=== PATIENT | male | born 1950 | race Caucasian/White ===

== ENCOUNTER 2016-09-16 14:01 | Inpatient (IN) ==
--- NOTE | 2016-09-16 14:06 | Emergency Department Note ---
Disposition Clinical Impression: Atrial fibrillation with rapid ventricular response Acute and chronic respiratory failure Qualifiers: Respiratory failure complication: hypoxia and hypercapnia Qualified Code(s): J96.21 - Acute and chronic respiratory failure with hypoxia; J96.22 - Acute and chronic respiratory failure with hypercapnia Pulmonary edema Qualifiers: Chronicity: acute Qualified Code(s): J81.0 - Acute pulmonary edema Dyspnea Qualifiers: Dyspnea type: shortness of breath Qualified Code(s): R06.02 - Shortness of breath Disposition: Admitted As Inpatient Condition: Good SOB HPI - General Chief Complaint: ED Shortness of Breath/Dyspnea Stated Complaint: brunilda Time Seen by Provider: 09/16/16 14:03 Source: patient, EMS Mode of arrival: EMS Limitations: no limitations Nursing Notes Reviewed: Yes Vital Signs Reviewed: Yes - History of Present Illness Patient reports progressive dyspnea over the course of about a week. He denies that he is having a productive cough or any specific chest pains. He states he just has general malaise and dyspnea. Reports he has had similar before with history of some COPD. He denies history of congestive heart failure. He denies any increase of lower extremity swelling or any pains. He denies nausea , vomiting, diaphoresis or abdominal pain. He states he is on home oxygen and his readings have been "low". He is on 4 L nasal cannula and he arrives with saturations in the mid 80s. EMS reports they did administer a DuoNeb, aspirin and 125mg of Solu-Medrol in route. Pt Subjective Complaint: shortness of breath Onset (ago): week(s) Severity: moderate Consistency/Duration: gradually worsening Improves with: rest Worsens with: exertion, movement Known history of: COPD Associated symptoms: Reports: cough, wheezing. Denies: chest pain, pain with inspiration, fever, sputum production, orthopnea, lower extremity pain, polyuria , polydipsia, parasthesias, palpitations, hemoptysis, diaphoresis, nausea/ vomiting, syncope, abdominal pain, rash Treatment prior to arrival: oxygen, bronchodilator Cough Description: Voluntary Cough Frequency: Intermittent Sputum production: No - Related Data Home oxygen amount: 4 liters Home Medications Medication Instructions Recorded Confirmed Atorvastatin Calcium [Lipitor] 40 mg PO DAILY 07/13/16 09/16/16 Citalopram [CeleXA] 40 mg PO DAILY 07/13/16 07/13/16 Levothyroxine [Synthroid] 125 mcg PO 0630 07/13/16 09/16/16 Metoprolol [Lopressor] 12.5 mg PO DAILY 07/13/16 07/13/16 Amiodarone [Cordarone] 200 mg PO DAILY 09/16/16 09/16/16 Furosemide [Lasix] 40 mg PO DAILY 09/16/16 09/16/16 Ropinirole [Requip] 0.25 mg PO HS 09/16/16 09/16/16 Allergies Allergy/AdvReac Type Severity Reaction Status Date / Time No Known Allergies Allergy Verified 07/13/16 20:38 All systems ED: reviewed and negative except as stated. Past Medical History - Past Medical History Attestation: Yes The following information was validated with the patient. Source: patient, old records reviewed, obtained from family, nursing notes reviewed Medical history: Reports: atrial fibrillation, COPD (Chronic respiratory failure , oxygen dependency), coronary artery disease, CVA, DVT, hyperlipidemia, hypertension, renal disease, thyroid disease, other (Paroxysmal atrial fibrillation, obstructive sleep apnea) Surgical history: Reports: coronary bypass (CABG) Psychiatric history: Reports: anxiety, depression - Social History Smoking Status: Current every day smoker Smokeless Tobacco Status: No Drug use: Reports: none Physical Exam - General Limitations: no limitations General appearance: alert, in distress - Head Head exam: atraumatic, normocephalic, normal inspection - Eye Eye exam: Present: normal appearance, PERRL, EOMI - ENT ENT exam: normal exam, normal oropharynx, mucous membranes moist - Neck Neck exam: Present: normal inspection, full ROM, trachea midline - Chest Chest inspection: Present: normal inspection, symmetric chest wall rise - Respiratory Respiratory exam: Present: respiratory distress, prolonged expiratory phase. Absent: wheezes, accessory muscle use - Cardiovascular Cardiovascular exam: Present: tachycardia, irregular rhythm. Absent: JVD - Abdominal Exam Abdominal exam: Present: soft, Non-Tender, normal bowel sounds. Absent: tenderness, distention, guarding, rebound, rigidity - Extremities Exam Extremities exam: Present: normal inspection, full ROM, normal capillary refill. Absent: tenderness, pedal edema, calf tenderness - Expanded Lower Extremity Exam Neurovascular/Tendon exam: Present: normal capillary refill. Absent: motor deficit, sensory deficit, tendon deficit Gait: not tested/not observed - Neurological Exam Neurological exam: Present: alert, oriented X3 - Psychiatric Psychiatric exam: Present: normal affect, normal mood - Skin Skin exam: Present: warm, dry, intact, cyanosis (Lips only). Absent: diaphoresis, pallor Course Course Narrative: 1500: The patient has refused BiPAP indicating to the respiratory therapist that he has been on this before and he has not been able to tolerate it. He does have attention on his ABG and relative hypoxia on his 4 L. He indicates that he does not wish to have other respiratory treatment. His heart rate is remaining elevated at about 120 and he is now saturating at 90% with a blood pressure of 126/75. His x-ray indicates some fluid overload and his lactic acid is elevated at 3.1. I do not believe a fluid bolus would be prudent at this time. We are awaiting return of additional lab work prior to his disposition. 1555: All lab, EKG and imaging are discussed with the patient and family. With x-ray and lab indicating fluid overload he has received a dose of IV Lasix. The family that lives advises that he ran out of his own Lasix 8 days ago and have not received another prescription yet. It is over this period of time that he has been having increased shortness of breath. He is resting with a heart rate still about 1 to an saturations in the high 80s on his own 4 L nasal cannula. He still does not wish to have any additional oxygen or more aggressive respiratory treatment. I have discussed care with Dr. Powers who would like to see how well he responds to the dose of IV furosemide prior to considering observation to this facility. He additionally desired he receive a dose of 0.5 mg of Lanoxin IV and 50 mg of metoprolol by mouth. He is showing clinical improvement by 5 PM, he is agreeable with having him observed to the floor at this facility. Given the patient's refusal of more aggressive respiratory treatment or intervention, it is unlikely that more aggressive treatment would be done at a tertiary facility at this time. We will continue observing the patient in the emergency department over the next hour. 1705: Patient has been resting comfortably at the side of his bed, has a respiratory rate of all is 20 and an oxygen saturation of about 85% on 4 L nasal cannula. His heart rate is running 100-110 and his blood pressure is 105/ 60. He denies that he is having any current shortness of breath and that he feels much better. His family notes he was having difficulty breathing when he got here but it seems that he is breathing normally now. They state that his usual oxygens are in the mid 80s. Care has been discussed with Dr. Powers who is agreeable having this patient at this facility'S the nursing staff may have some problems with his chronic oxygen level. We have placed a call to the nurse receiving supervisor on the floor with a request that she see this patient in the emergency department prior to their giving him an inpatient bed at this facility. 1855: Care has been discussed several times with Dr. Powers, floor nurse as well as the medicine floor covering installer, Anu with the decision to observe the patient at this facility. He continues to rest comfortably and drink coffee. The patient and family state that he is breathing at his baseline. He currently has a heart rate 90, and Oxygen Saturation in the Mid 90s and a Respiratory Rate of 14-16. Vital Signs Temperature 97.4 F L 09/16/16 14:02 Pulse Rate 124 09/16/16 14:02 Respiratory Rate 20 09/16/16 14:02 Blood Pressure 89/66 09/16/16 14:02 O2 Sat by Pulse Oximetry 80 09/16/16 14:02 Temperature 97.4 F L 09/16/16 14:02 Pulse Rate 90 09/16/16 18:46 Respiratory Rate 18 09/16/16 19:21 Blood Pressure 125/68 09/16/16 19:21 O2 Sat by Pulse Oximetry 92 09/16/16 18:46 Oxygen Delivery Oxygen Delivery Nasal Cannula Shortness of Breath/Dyspnea - Differential Diagnosis Likely: acute exacerbation of chronic obstructive airways disease, congestive heart failure, pneumonia, asthma with exacerbation - Medical Records Medical records reviewed: Yes I reviewed the patient's medical records. Patient's INR was 7.1 on 09/14/2016. There is little likelihood that his current pathology will be secondary to any intravascular coagulation or pulmonary embolism. - Lab Data Lab results reviewed: Yes I reviewed the patient's lab results. Result diagrams: 09/16/16 14:50 09/16/16 14:40 Lab Results 09/16/16 09/16/16 09/16/16 Range/Units 14:18 14:40 14:40 WBC (4.3-11.1) K/mcL RBC (4.19-5.50) M/mcL Hgb (12.9-16.9) g/dL Hct (37.5-50.1) % MCV (83.0-100.0) fL MCH (28.0-33.3) pg MCHC (31.6-35.5) g/dL RDW (11.5-14.5) % Plt Count (140-400) K/mcL MPV (9.4-12.4) fL Immature Gran % (0-4) % Seg Neutrophils % % Lymphocytes % % Monocytes % % Eosinophils % % Basophils % % Neutrophils # (1.6-8.9) K/mcL Lymphocytes # (0.6-4.6) K/mcL Monocytes # (0.0-1.3) K/mcL Eosinophils # (0.0-0.6) K/mcL Basophils # (0.0-0.2) K/mcL Nucleated RBCs/100 WBC (0) /100 WBC PT (9.4-12.1) Seconds INR APTT (26.0-36.0) Seconds ABG pH 7.37 (7.32-7.45) pH Units ABG pCO2 65 H (35-45) mmHg ABG pO2 51 L (85-104) mmHg ABG HCO3 36.9 H (21-27) mEQ/L ABG Total CO2 38.9 H (20-26) mEq/L ABG O2 Saturation 83 L (95-98) % ABG Base Excess 11.6 H (-2.0 to 3.0) mEq/L VBG Lactic Acid (0.5-2.2) mmol/L Liter Flow 4 L/MIN Blood Gas Modality NC Inspired O2 36 % Sodium 142 (136-145) mEq/L Potassium 4.1 (3.5-4.5) mEq/L Chloride 98 (98-109) mEq/L Carbon Dioxide 29 (19-29) mEq/L BUN 22 (8-26) mg/dL Creatinine 1.14 (0.72-1.25) mg/dL Est GFR ( Amer) > 60 (> 60) Est GFR (Non-Af Amer) > 60 (> 60) BUN/Creatinine Ratio 19 (6-26) Glucose 112 H (70-99) mg/dL Calculated Osmolality 298 (280-300) Calcium 8.4 L (8.6-10.8) mg/dL Troponin I 0.03 (0-0.03) ng/mL B-Natriuretic Peptide (0-100) pg/mL 09/16/16 09/16/16 09/16/16 Range/Units 14:40 14:50 14:50 WBC 11.9 H (4.3-11.1) K/mcL RBC 3.84 L (4.19-5.50) M/mcL Hgb 11.3 L (12.9-16.9) g/dL Hct 38.3 (37.5-50.1) % MCV 99.7 (83.0-100.0) fL MCH 29.4 (28.0-33.3) pg MCHC 29.5 L (31.6-35.5) g/dL RDW 16.0 H (11.5-14.5) % Plt Count 290 (140-400) K/mcL MPV 10.7 (9.4-12.4) fL Immature Gran % 0.5 (0-4) % Seg Neutrophils % 79.9 % Lymphocytes % 7.0 % Monocytes % 12.0 % Eosinophils % 0.2 % Basophils % 0.4 % Neutrophils # 9.5 H (1.6-8.9) K/mcL Lymphocytes # 0.8 (0.6-4.6) K/mcL Monocytes # 1.4 H (0.0-1.3) K/mcL Eosinophils # 0.0 (0.0-0.6) K/mcL Basophils # 0.1 (0.0-0.2) K/mcL Nucleated RBCs/100 WBC 0.2 H (0) /100 WBC PT 45.1 H* (9.4-12.1) Seconds INR 4.0 APTT 34.7 (26.0-36.0) Seconds ABG pH (7.32-7.45) pH Units ABG pCO2 (35-45) mmHg ABG pO2 (85-104) mmHg ABG HCO3 (21-27) mEQ/L ABG Total CO2 (20-26) mEq/L ABG O2 Saturation (95-98) % ABG Base Excess (-2.0 to 3.0) mEq/L VBG Lactic Acid 3.1 H (0.5-2.2) mmol/L Liter Flow L/MIN Blood Gas Modality Inspired O2 % Sodium (136-145) mEq/L Potassium (3.5-4.5) mEq/L Chloride (98-109) mEq/L Carbon Dioxide (19-29) mEq/L BUN (8-26) mg/dL Creatinine (0.72-1.25) mg/dL Est GFR ( Amer) (> 60) Est GFR (Non-Af Amer) (> 60) BUN/Creatinine Ratio (6-26) Glucose (70-99) mg/dL Calculated Osmolality (280-300) Calcium (8.6-10.8) mg/dL Troponin I (0-0.03) ng/mL B-Natriuretic Peptide (0-100) pg/mL 09/16/16 Range/Units 14:50 WBC (4.3-11.1) K/mcL RBC (4.19-5.50) M/mcL Hgb (12.9-16.9) g/dL Hct (37.5-50.1) % MCV (83.0-100.0) fL MCH (28.0-33.3) pg MCHC (31.6-35.5) g/dL RDW (11.5-14.5) % Plt Count (140-400) K/mcL MPV (9.4-12.4) fL Immature Gran % (0-4) % Seg Neutrophils % % Lymphocytes % % Monocytes % % Eosinophils % % Basophils % % Neutrophils # (1.6-8.9) K/mcL Lymphocytes # (0.6-4.6) K/mcL Monocytes # (0.0-1.3) K/mcL Eosinophils # (0.0-0.6) K/mcL Basophils # (0.0-0.2) K/mcL Nucleated RBCs/100 WBC (0) /100 WBC PT (9.4-12.1) Seconds INR APTT (26.0-36.0) Seconds ABG pH (7.32-7.45) pH Units ABG pCO2 (35-45) mmHg ABG pO2 (85-104) mmHg ABG HCO3 (21-27) mEQ/L ABG Total CO2 (20-26) mEq/L ABG O2 Saturation (95-98) % ABG Base Excess (-2.0 to 3.0) mEq/L VBG Lactic Acid (0.5-2.2) mmol/L Liter Flow L/MIN Blood Gas Modality Inspired O2 % Sodium (136-145) mEq/L Potassium (3.5-4.5) mEq/L Chloride (98-109) mEq/L Carbon Dioxide (19-29) mEq/L BUN (8-26) mg/dL Creatinine (0.72-1.25) mg/dL Est GFR ( Amer) (> 60) Est GFR (Non-Af Amer) (> 60) BUN/Creatinine Ratio (6-26) Glucose (70-99) mg/dL Calculated Osmolality (280-300) Calcium (8.6-10.8) mg/dL Troponin I (0-0.03) ng/mL B-Natriuretic Peptide 2406 H (0-100) pg/mL - Radiology Data Radiology results reviewed: Yes I reviewed the patient's radiology results. Single view chest x-rays performed. This shows a markedly rightward rotated film with some diffuse increased interstitial markings present. I did not see definite focal infiltrate, effusion or pneumothorax. The cardiac silhouette is difficult to assess. This is on my interpretation. Impressions Chest X-Ray 09/16/16 14:03 IMPRESSION: Cardiomegaly with pulmonary vascular congestion, small bilateral pleural effusions, and bibasilar atelectasis. D/ / Arlene Saucedo MD / Arlene Saucedo MD Interpreting Provider: Arlene Saucedo MD - EKG Data EKG attestation: Yes I reviewed and interpreted this EKG. EKG shows normal: Reports: axis, QRS complexes Rate: Reports: tachycardia (123) Rhythm: Reports: A.Fib Interpretation: Reports: nonspecific ST-T wave changes, other (Atrial fibrillation with rapid ventricular response. Nonspecific T-wave flattening.) Critical Care Time Critical Care Time: Yes Total Critical Care Time: 45 Attestation: As this patient did present with signs and symptoms of potential life- threatening illness requiring my urgent intervention, total critical care time in this patient's care has been 45 minutes, not withstanding separately reportable procedures.
[2016-09-16 14:27] LABS: ABG Base Excess 11.6 mEq/L (-2.0 to 3.0); ABG HCO3 36.9 mEQ/L (21-27); ABG Oxygen Saturation 83 % (95-98); ABG PCO2 65 mmHg (35-45); ABG PH 7.37 pH Units (7.32-7.45); ABG PO2 51 mmHg (85-104); ABG TCO2 38.9 mEq/L (20-26); Blood Gas FiO2 36 %; Blood Gas Liter Flow 4 L/MIN
[2016-09-16 15:01] LABS: Basophils # 0.1 K/mcL (0.0-0.2); Basophils % 0.4 %; Eosinophils % 0.2 %; Hematocrit 38.3 % (37.5-50.1); Hemoglobin 11.3 g/dL (12.9-16.9); Immature Granulocytes % 0.5 % (0-4); Lymphocytes # 0.8 K/mcL (0.6-4.6); Mean Corpuscular HGB Conc 29.5 g/dL (31.6-35.5); Mean Corpuscular Hemoglobin 29.4 pg (28.0-33.3); Mean Corpuscular Volume 99.7 fL (83.0-100.0); Mean Platelet Volume 10.7 fL (9.4-12.4); Monocytes # 1.4 K/mcL (0.0-1.3); Neutrophils # 9.5 K/mcL (1.6-8.9); Nucleated Red Blood Cells 0.2 /100 WBC (0); Platelet Count 290 K/mcL (140-400); Red Blood Count 3.84 M/mcL (4.19-5.50); Segmented Neutrophils % 79.9 %
[2016-09-16 15:08] LABS: BUN/Creatinine Ratio 19 (6-26); Blood Urea Nitrogen 22 mg/dL (8-26); Calcium 8.4 mg/dL (8.6-10.8); Carbon Dioxide 29 mEq/L (19-29); Chloride 98 mEq/L (98-109); Glucose 112 mg/dL (70-99); Osmolality,Calculated 298 (280-300); Potassium 4.1 mEq/L (3.5-4.5); Sodium 142 mEq/L (136-145); eGFR For African Americans > 60 (> 60); eGFR For Non-African Americans > 60 (> 60)
[2016-09-16 15:22] LABS: Activated Partial Thrombo Time 34.7 Seconds (26.0-36.0)
[2016-09-16 15:38] LABS: Prothrombin Time 45.1 Seconds (9.4-12.1)
[2016-09-16] MEDS ORDERED: Furosemide 40 MG/4 ML VIAL IVP ONE (15:42)
[2016-09-16] MEDS ORDERED: *HR* Digoxin 0.5 MG/2 ML AMPUL IVP ONE (16:02)
[2016-09-16] MEDS ORDERED: MOM Conc 10 ML UD.LIQ PO PRN (19:21)
[2016-09-16] MEDS ORDERED: Ipratropium/Albuterol Neb 3 ML IH PRN (19:21)
[2016-09-16] MEDS ORDERED: Ondansetron 4 MG/2 ML VIAL IVP PRN (19:21)
[2016-09-16] MEDS ORDERED: Naloxone 0.4 MG/ML INJ IVP PRN (19:21)
[2016-09-17] MEDS ORDERED: *HR* Amiodarone 200 MG TABLET PO SCH (09:00)
--- NOTE | 2016-09-17 09:09 | Electrocardiograph Report ---
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
[2016-09-17] MEDS: *HR* Digoxin 0.25 MG TABLET PO SCH (09:34)
[2016-09-17] MEDS: Furosemide 40 MG TABLET PO SCH (09:34)
--- NOTE | 2016-09-17 12:51 | Internal Med History&Physical ---
Date of Encounter: 09/17/16 Time of Encounter: 08:45 Assessment and Plan (1) Dyspnea Current visit: Yes Status: Acute Suspect multifactorial etiology including COPD and heart failure with possible bronchitis/pneumonia. He will be treated for each of these various contributing factors. Qualifiers: Dyspnea type: shortness of breath Qualified Code(s): R06.02 - Shortness of breath (2) COPD (chronic obstructive pulmonary disease) Current visit: Yes Status: Chronic He has been started on duo nebs and albuterol nebs as needed. Further workup will be done as indicated. Qualifiers: COPD type: unspecified COPD Qualified Code(s): J44.9 - Chronic obstructive pulmonary disease, unspecified (3) Heart failure Current visit: Yes Status: Acute He appears to have acute exacerbation of heart failure with significant rise in the bn peptides since July 2016 level of 380. Will add Lanoxin and isosorbide. Continue metoprolol Qualifiers: Heart failure type: unspecified heart failure type Heart failure chronicity : chronic Qualified Code(s): I50.9 - Heart failure, unspecified (4) Anemia Current visit: Yes Status: Acute We will order anemia testing in a.m. Qualifiers: Anemia type: unspecified type Qualified Code(s): D64.9 - Anemia, unspecified (5) Hypothyroidism Current visit: Yes Status: Acute We will check TSH in a.m. Qualifiers: Hypothyroidism type: unspecified Qualified Code(s): E03.9 - Hypothyroidism , unspecified (6) Atrial fibrillation with rapid ventricular response Current visit: Yes Status: Acute Atrial fibrillation suspected to be chronic due to presence of amiodarone on med list. Will add Lanoxin for rate control and increase metoprolol. We will start Xarelto for CVA prophylaxis. (7) Neutrophilic leukocytosis Current visit: Yes Status: Acute Continue empiric antibiotic treatment and will add lactobacillus. Internal Medicine - H&P: HPI Chief complaint: Dyspnea Admitted From: Home Plans for Post Hospital Care: Home History of present illness: Mr. Abdullahi is a 66 year old male who came to emergency room complaining of increased dyspnea over the preceding 2 weeks. He had cough with minimal productivity. He denied chest pain. He was evaluated in emergency room and found to have AF with RVR and significantly elevated bn peptide. He had fluctuating oxygen saturations. He was stabilized emergency room and admitted to [facility] floor for ongoing care needs. His respiratory history is significant for having smoked since age 10 up to 2-1/ 2 packs per day. He states he wears oxygen at home 09/01 at 4 L/m. He has a diagnosis of COPD. Cardiovascular history is significant for hypertension and known ASHD with possible remote [place]. He states he had 4 vessel CABG approximately 2004. He had DVT with IVC filter placed several years ago. He has diagnoses of heart failure but does not know details. Past Med Surg Social Fam HX - Past Medical History Medical history: atrial fibrillation, COPD, coronary artery disease, CVA, DVT, hyperlipidemia, hypertension, renal disease, thyroid disease, other Psychiatric history: anxiety, depression - Past Surgical History Surgical History: coronary bypass (CABG) - Social History Smoking Status: Current every day smoker Smokeless Tobacco Status: No Alcohol use: none Drug use: none - Family History Mother Living Status: Cause of : [place] Hx Family Cardiac Disorders: Yes (OK) Sister Living Status: Cause of : [place] Hx Family Cardiac Disorders: Yes ([place]) Internal Medicine - H&P: Meds Atorvastatin Calcium [Lipitor] 40 mg PO DAILY 07/13/16 [History] Citalopram [CeleXA] 40 mg PO DAILY 07/13/16 [History] Levothyroxine [Synthroid] 125 mcg PO 0630 07/13/16 [History] Metoprolol [Lopressor] 12.5 mg PO DAILY 07/13/16 [History] Amiodarone [Cordarone] 200 mg PO DAILY 09/16/16 [History] Furosemide [Lasix] 40 mg PO DAILY 09/16/16 [History] Ropinirole [Requip] 0.25 mg PO HS 09/16/16 [History] Allergies No Known Allergies Allergy (Verified 07/13/16 20:38) All Systems PM: A 10-system review of systems was performed and is negative for pertinent findings except as documented above in the HPI. Review of systems: General: He states his weight has been stable the past few months Cardiovascular: As per history of present illness Respiratory: As per history of present illness GI: He denies disorders of his liver gallbladder or exocrine pancreas : He denies hematuria dysuria or kidney stones Neurologic: He claims he has had CVA in the past with residual left-sided weakness. He uses a cane or walker to ambulate at home. He denies seizures. Endocrine: He has hyperlipidemia and hypothyroidism but denies diabetes. Hematology/oncology: He was found to have anemia in the emergency room. He denies internal malignancies other blood disorders. Psychiatric: He has anxiety but denies depression or other mental health issues Musk skeletal: He has DJD but no known gout or other bone joint or muscle disorders. - Constitutional Vitals: Temp Pulse Resp BP Pulse Ox 98.7 F 92 20 106/59 93 09/17/16 01:50 09/17/16 10:22 09/17/16 10:22 09/17/16 10:22 09/17/16 10:22 Exam: Gen.: He is a well-developed obese male sitting in a chair who appears in no severe distress at present time HEENT: Head is atraumatic and normal cephalic. Eyes: EOMI. There is no scleral icterus. Mouth: He is wearing oxygen by mask. His mucosa is moist Neck: There is no thyromegaly or adenopathy noted Heart: Irregularly irregular without murmurs or gallops Lungs: Has diminished breath sounds diffusely. No wheezes or crackles are heard. Abdomen: Soft and nontender. He has a large abdomen. Exam is limited because he is in the seated position. Extremities: There is no cyanosis edema or clubbing noted. Dorsalis pedis and posttibial pulses are trace palpable bilaterally. Neurologic: Mental status: He is talkative and a fair historian. He has difficulty remembering some details of his history. Cranial nerves: Smile is symmetric. Forehead wrinkles bilaterally. Tongue protrudes midline. EOMI. He is hard of hearing. Motor: There is no pronator drift. Cerebellar: Finger to nose is intact bilaterally. Skin: Warm and dry Internal Med - H&P Results - Labs CBC & Chem 7: 09/16/16 14:50 09/16/16 14:40
[2016-09-17] MEDS: Albuterol 2.5 MG/3 ML NEBULIZER IH PRN (17:23)
[2016-09-17] MEDS: Levofloxacin 750 MG/150 ML 750 MG/150 ML BAG IVPB SCH (17:37)
[2016-09-17] MEDS: Isosorbide MONOnitrate (24 HR) 30 MG TAB.ER.24H PO SCH (17:37)
[2016-09-17] MEDS: *HR* Rivaroxaban 10 MG TABLET PO SCH (17:38)
[2016-09-17] MEDS: Lactobacillus 1 EACH CAP.SPRINK PO SCH (21:25)
[2016-09-18 06:09] LABS: Basophils % 0.2 %; Eosinophils # 0.1 K/mcL (0.0-0.6); Eosinophils % 0.9 %; Hematocrit 37.1 % (37.5-50.1); Hemoglobin 10.8 g/dL (12.9-16.9); Immature Granulocytes % 0.5 % (0-4); Lymphocytes # 1.3 K/mcL (0.6-4.6); Lymphocytes % 9.8 %; Mean Corpuscular HGB Conc 29.1 g/dL (31.6-35.5); Mean Corpuscular Hemoglobin 29.3 pg (28.0-33.3); Mean Corpuscular Volume 100.5 fL (83.0-100.0); Monocytes # 1.4 K/mcL (0.0-1.3); Monocytes % 10.7 %; Platelet Count 214 K/mcL (140-400); Red Blood Count 3.69 M/mcL (4.19-5.50); Red Cell Distribution Width 16.1 % (11.5-14.5); Segmented Neutrophils % 77.9 %
[2016-09-18 06:10] LABS: Neutrophils # 10.1 K/mcL (1.6-8.9)
[2016-09-18 06:41] LABS: Alanine Aminotransferase 170 Units/L (0-55); Albumin 2.8 g/dL (3.5-5.0); Albumin/Globulin Ratio 1.2 (1.1-2.2); Alkaline Phosphatase 64 Units/L (38-126); Aspartate Amino Transferase 55 Units/L (5-34); BUN/Creatinine Ratio 26 (6-26); Bilirubin,Total 0.6 mg/dL (0.2-1.2); Blood Urea Nitrogen 25 mg/dL (8-26); Calcium 8.4 mg/dL (8.6-10.8); Carbon Dioxide 34 mEq/L (19-29); Chloride 100 mEq/L (98-109); Globulin 2.3 g/dL (2.4-3.5); Glucose 98 mg/dL (70-99); Osmolality,Calculated 302 (280-300); Potassium 4.1 mEq/L (3.5-4.5); Sodium 144 mEq/L (136-145); Total Protein 5.1 g/dL (6.0-8.3); eGFR For African Americans > 60 (> 60); eGFR For Non-African Americans > 60 (> 60)
[2016-09-18 07:02] LABS: Thyroid Stimulating Hormone 5.348 mcIU/mL (0.350-4.840)
--- NOTE | 2016-09-18 09:16 | Internal Med Progress Note ---
Date of Encounter: 09/18/16 Time of Encounter: 09:05 - Assessment and plan (1) Dyspnea Current Visit: Yes Status: Acute Assessment and plan: September 18. Continue treatment of individual components. Will order chest CT Qualifiers: Dyspnea type: shortness of breath Qualified Code(s): R06.02 - Shortness of breath (2) COPD (chronic obstructive pulmonary disease) Current Visit: Yes Status: Chronic Assessment and plan: Continue Levaquin with when necessary albuterol nebs Qualifiers: COPD type: unspecified COPD Qualified Code(s): J44.9 - Chronic obstructive pulmonary disease, unspecified (3) Heart failure Current Visit: Yes Status: Acute Assessment and plan: September 18. Bn peptide has improved significantly. Continue present regimen and recheck labs in a.m. Qualifiers: Heart failure type: unspecified heart failure type Heart failure chronicity : chronic Qualified Code(s): I50.9 - Heart failure, unspecified (4) Anemia Current Visit: Yes Status: Acute Assessment and plan: September 18. Anemia testing results pending. Recheck labs in a.m. Qualifiers: Anemia type: unspecified type Qualified Code(s): D64.9 - Anemia, unspecified (5) Hypothyroidism Current Visit: Yes Status: Acute Assessment and plan: September 18. TSH minimally elevated at 5.348. We will increase Synthroid dose Qualifiers: Hypothyroidism type: unspecified Qualified Code(s): E03.9 - Hypothyroidism , unspecified (6) Atrial fibrillation with rapid ventricular response Current Visit: Yes Status: Acute Assessment and plan: September 18. Continue Lanoxin, metoprolol, and Xarelto. Amiodarone at present dose is ineffective and may be contributing to hypothyroidism. (7) Neutrophilic leukocytosis Current Visit: Yes Status: Acute Assessment and plan: September 18. Continue Levaquin and lactobacillus. - Subjective Interval history: September 18. He has no new complaints and states he feels better. - Constitutional Vitals: Temp Pulse Resp BP Pulse Ox 98.2 F 78 16 94/66 94 09/18/16 06:34 09/18/16 06:34 09/18/16 06:34 09/18/16 06:34 09/18/16 06:34 Exam: He is resting comfortably in bed wearing oxygen by nasal cannula. He awakens to answer occasional questions but is lethargic. His lungs show no wheezes or crackles. Heart remains atrial fibrillation with ventricular rate approximately 85/m. Internal Medicine: Result - Labs CBC & Chem 7: 09/18/16 05:13 09/18/16 05:13 Labs: Short CBC 09/18/16 Range/Units 05:13 WBC 12.9 H (4.3-11.1) K/mcL Hgb 10.8 L (12.9-16.9) g/dL Hct 37.1 L (37.5-50.1) % Plt Count 214 (140-400) K/mcL Neutrophils # 10.1 H (1.6-8.9) K/mcL BMP 09/18/16 05:13 Sodium 144 Potassium 4.1 Chloride 100 Carbon Dioxide 34 H BUN 25 Creatinine 0.97 Glucose 98 Calcium 8.4 L Liver Function 09/18/16 Range/Units 05:13 Total Bilirubin 0.6 (0.2-1.2) mg/dL AST 55 H (5-34) Units/L ALT 170 H (0-55) Units/L Alkaline Phosphatase 64 (38-126) Units/L Albumin 2.8 L (3.5-5.0) g/dL - ABG Interpretation ABG results: ABG ABG pH 7.37 pH Units (7.32-7.45) 09/16/16 14:18 ABG pCO2 65 mmHg (35-45) H 09/16/16 14:18 ABG pO2 51 mmHg (85-104) L 09/16/16 14:18 ABG O2 Saturation 83 % (95-98) L 09/16/16 14:18 PT/INR, D-dimer PT 45.1 Seconds (9.4-12.1) H* 09/16/16 14:50 - VTE Documentation of Mechanical Device: Graduated compression elastic hosiery Consult Discharge Plan - Plan Referrals: Sara Rabago MD [Primary Care Provider] - 1 week
[2016-09-18] MEDS: Levofloxacin 750 MG/150 ML 750 MG/150 ML BAG IVPB SCH (10:08)
[2016-09-18] MEDS: Isosorbide MONOnitrate (24 HR) 30 MG TAB.ER.24H PO SCH (10:13)
[2016-09-18] MEDS: *HR* Digoxin 0.25 MG TABLET PO SCH (10:13)
[2016-09-18] MEDS: Furosemide 40 MG TABLET PO SCH (10:13)
[2016-09-18] MEDS: Lactobacillus 1 EACH CAP.SPRINK PO SCH ×2 (10:13→22:00)
[2016-09-18] MEDS: Albuterol 2.5 MG/3 ML NEBULIZER IH PRN ×2 (11:04→19:46)
[2016-09-18] MEDS: *HR* Rivaroxaban 10 MG TABLET PO SCH (17:49)
[2016-09-18 18:16] LABS: Ferritin 88 ng/ml (22-275)
[2016-09-18 18:31] LABS: Folate 4.5 ng/mL (7.0-31.4)
[2016-09-19 03:08] LABS: Basophils % 0.2 %; Eosinophils # 0.2 K/mcL (0.0-0.6); Eosinophils % 1.7 %; Hematocrit 36.7 % (37.5-50.1); Hemoglobin 10.6 g/dL (12.9-16.9); Immature Granulocytes % 1.2 % (0-4); Lymphocytes # 1.5 K/mcL (0.6-4.6); Mean Corpuscular HGB Conc 28.9 g/dL (31.6-35.5); Mean Corpuscular Volume 100.3 fL (83.0-100.0); Mean Platelet Volume 10.5 fL (9.4-12.4); Monocytes # 1.2 K/mcL (0.0-1.3); Monocytes % 10.3 %; Neutrophils # 8.2 K/mcL (1.6-8.9); Platelet Count 222 K/mcL (140-400); Red Blood Count 3.66 M/mcL (4.19-5.50); Segmented Neutrophils % 73.6 %
[2016-09-19 03:13] LABS: BUN/Creatinine Ratio 21 (6-26); Blood Urea Nitrogen 23 mg/dL (8-26); Carbon Dioxide 37 mEq/L (19-29); Chloride 98 mEq/L (98-109); Glucose 122 mg/dL (70-99); Osmolality,Calculated 305 (280-300); Potassium 4.2 mEq/L (3.5-4.5); Sodium 145 mEq/L (136-145); eGFR For African Americans > 60 (> 60); eGFR For Non-African Americans > 60 (> 60)
[2016-09-19 03:20] LABS: Digoxin 0.7 ng/mL (0.8-2.0)
[2016-09-19 03:25] LABS: Anisocytosis 1+ (Not Present)
[2016-09-19 03:26] LABS: Polychromasia 1+ (Not Present)
[2016-09-19 03:28] LABS: Macrocytosis Present (Not Present)
[2016-09-19 03:29] LABS: Stomatocytes 1+ (Not Present)
[2016-09-19] MEDS ORDERED: Levothyroxine 25 MCG TABLET PO SCH (06:30)
[2016-09-19] MEDS: Lactobacillus 1 EACH CAP.SPRINK PO SCH (09:03)
[2016-09-19] MEDS: Furosemide 40 MG TABLET PO SCH (09:03)
[2016-09-19] MEDS: Levofloxacin 750 MG/150 ML 750 MG/150 ML BAG IVPB SCH (09:03)
[2016-09-19 10:49] LABS: % Iron Saturation 4 % (20-55); Iron 18 mcg/dL (65-175); Transferrin 295 mg/dL (174-364)
--- NOTE | 2016-09-19 11:53 | Discharge Summary ---
Date of Encounter: 09/19/16 Time of Encounter: 11:20 - Discharge Diagnosis (1) Dyspnea Priority: Primary Status: Acute Qualifiers: Dyspnea type: shortness of breath Qualified Code(s): R06.02 - Shortness of breath (2) COPD (chronic obstructive pulmonary disease) Priority: Secondary Status: Chronic Qualifiers: COPD type: unspecified COPD Qualified Code(s): J44.9 - Chronic obstructive pulmonary disease, unspecified (3) Heart failure Priority: Secondary Status: Acute Qualifiers: Heart failure type: unspecified heart failure type Heart failure chronicity : chronic Qualified Code(s): I50.9 - Heart failure, unspecified (4) Anemia Priority: Secondary Status: Acute Qualifiers: Anemia type: unspecified type Qualified Code(s): D64.9 - Anemia, unspecified (5) Hypothyroidism Priority: Secondary Status: Acute Qualifiers: Hypothyroidism type: unspecified Qualified Code(s): E03.9 - Hypothyroidism , unspecified (6) Atrial fibrillation with rapid ventricular response Priority: Secondary Status: Chronic (7) Neutrophilic leukocytosis Priority: Secondary Status: Resolved - Discharge Medications Prescriptions: Ascorbic Acid [Vitamin C] 500 mg PO DAILY #30 tablet.er Digoxin [Lanoxin] 0.25 mg PO DAILY #30 tablet Ferrous Sulfate 325 mg PO DAILY #30 tablet.dr Folic Acid 1 mg PO DAILY #30 tablet Isosorbide MONOnitrate (24 HR) [Imdur] 30 mg PO DAILY #30 tab.er.24h Metoprolol [Lopressor] 25 mg PO BID #60 tablet Rivaroxaban [Xarelto] 20 mg PO DAILY #30 tablet Home Medications: Atorvastatin Calcium [Lipitor] 40 mg PO DAILY 07/13/16 [History] Citalopram [CeleXA] 40 mg PO DAILY 07/13/16 [History] Levothyroxine [Synthroid] 125 mcg PO 0630 07/13/16 [History] Amiodarone [Cordarone] 200 mg PO DAILY 09/16/16 [History] Furosemide [Lasix] 40 mg PO DAILY 09/16/16 [History] Ropinirole [Requip] 0.25 mg PO HS 09/16/16 [History] Ascorbic Acid [Vitamin C] 500 mg PO DAILY #30 tablet.er 09/19/16 [Rx] Digoxin [Lanoxin] 0.25 mg PO DAILY #30 tablet 09/19/16 [Rx] Ferrous Sulfate 325 mg PO DAILY #30 tablet. 09/19/16 [Rx] Folic Acid 1 mg PO DAILY #30 tablet 09/19/16 [Rx] Isosorbide MONOnitrate (24 HR) [Imdur] 30 mg PO DAILY #30 tab.er.24h 09/19/16 [ Rx] Metoprolol [Lopressor] 25 mg PO BID #60 tablet 09/19/16 [Rx] Rivaroxaban [Xarelto] 20 mg PO DAILY #30 tablet 09/19/16 [Rx] Allergies/Adverse Reactions: Allergies No Known Allergies Allergy (Verified 07/13/16 20:38) Date of admission: 09/18/16 18:47 Primary care physician: Sara Rabago - Patient Status Disposition: Home Health Service Condition: Good Functional capacity at discharge: uses cane/walker Overall status at discharge: patient is progressing back to baseline - Discharge Instructions Follow Up With: Sara Rabago MD [Primary Care Provider] - 1 week - Diet and Activity Activity: resume usual activities as tolerated, wear oxygen at all times Diet: low salt diet Hospital course: Mr. Abdullahi is a 66 year old male who came to emergency room complaining of increased dyspnea over the preceding 2 weeks. He had cough with minimal productivity. He denied chest pain. He was evaluated in emergency room and found to have AF with RVR and significantly elevated bn peptide. He had fluctuating oxygen saturations. He was stabilized emergency room and admitted to [facility] floor for ongoing care needs. Initial orders were written by the emergency room physician. I saw him on September 17 and performed the history and physical. He was started on Lanoxin and isosorbide. His Lasix was continued. Metoprolol dose was increased. He had significant clinical improvement with BN peptide decreasing to 1156 by the day of discharge. His dyspnea had significantly improved by September 19. His oxygen saturation was 96-97% at the time of discharge. Will continue Levaquin and lactobacillus for 3 additional days at discharge. His rapid ventricular response rate improved to satisfactory range with the use of Lanoxin and higher dose metoprolol. Anemia testing showed iron 18, transferrin saturation 4%, transferrin 295, ferritin 88, folate 4.5, and B12 333. He will be given supplemental ferrous sulfate with vitamin C and folic acid discharge. TSH returned slightly elevated at 5.348. I will with his PCP Dr. Rabago adjust his Synthroid dose as needed. On September 19 he felt stable for discharge home which I feel is reasonable. He will continue with home health services. He will follow with his PCP Dr. Rabago within 1 week. Since he remains in atrial fibrillation despite use of amiodarone I will let Dr. Rabago and/or clinical lab specialist decide the need for continuing this since it may be interfering with thyroid function also. He was started on Xarelto for CVA prophylaxis and this will be continued at discharge. - Time Spent with Patient Total time spent providing and/or coordinating discharge services: - Constitutional Vitals: Temp Pulse Resp BP Pulse Ox 98.3 F 79 16 102/66 92 09/19/16 07:15 09/19/16 07:15 09/19/16 07:15 09/19/16 07:15 09/19/16 11:14 - VTE Documentation of Mechanical Device: Graduated compression elastic hosiery
--- NOTE | 2016-09-19 12:05 | Physician Discharge Referral ---
Home Health/Hosp Referral Info Transfer to: Home Health Attending Provider: Gio Provider in Charge Post Discharge: PCP Michael) - Diagnosis (1) Dyspnea Priority: Primary Status: Acute (2) COPD (chronic obstructive pulmonary disease) Priority: Secondary Status: Chronic (3) Heart failure Priority: Secondary Status: Acute (4) Anemia Priority: Secondary Status: Acute (5) Hypothyroidism Priority: Secondary Status: Acute (6) Atrial fibrillation with rapid ventricular response Priority: Secondary Status: Chronic (7) Neutrophilic leukocytosis Priority: Secondary Status: Resolved - Respiratory Orders Oxygen / L per min (O2 at 4 L/m 09/01) Smoking Cessation: Smoking cessation has been advised. For more information, call the [place] Tobacco Quit Line at 1-705-TEPA-NOW. - Diet/Nutrition Diet/Nutrition Orders: No Added Salt (MIKEL) - Activity Activity Orders: Walker - Services Needed Following services are medically necessary services: Nursing, Home Health Aide, Physical Therapy, Occupational Therapy - Transfer Medications Prescriptions: Ascorbic Acid [Vitamin C] 500 mg PO DAILY #30 tablet.er Digoxin [Lanoxin] 0.25 mg PO DAILY #30 tablet Ferrous Sulfate 325 mg PO DAILY #30 tablet. Folic Acid 1 mg PO DAILY #30 tablet Isosorbide MONOnitrate (24 HR) [Imdur] 30 mg PO DAILY #30 tab.er.24h Metoprolol [Lopressor] 25 mg PO BID #60 tablet Rivaroxaban [Xarelto] 20 mg PO DAILY #30 tablet Home Medications: Atorvastatin Calcium [Lipitor] 40 mg PO DAILY 07/13/16 [History] Citalopram [CeleXA] 40 mg PO DAILY 07/13/16 [History] Levothyroxine [Synthroid] 125 mcg PO 0630 07/13/16 [History] Amiodarone [Cordarone] 200 mg PO DAILY 09/16/16 [History] Furosemide [Lasix] 40 mg PO DAILY 09/16/16 [History] Ropinirole [Requip] 0.25 mg PO HS 09/16/16 [History] Ascorbic Acid [Vitamin C] 500 mg PO DAILY #30 tablet.er 09/19/16 [Rx] Digoxin [Lanoxin] 0.25 mg PO DAILY #30 tablet 09/19/16 [Rx] Ferrous Sulfate 325 mg PO DAILY #30 tablet. 09/19/16 [Rx] Folic Acid 1 mg PO DAILY #30 tablet 04/03/17 [Rx] Isosorbide MONOnitrate (24 HR) [Imdur] 30 mg PO DAILY #30 tab.er.24h 09/19/16 [ Rx] Metoprolol [Lopressor] 25 mg PO BID #60 tablet 09/19/16 [Rx] Rivaroxaban [Xarelto] 20 mg PO DAILY #30 tablet 09/19/16 [Rx] Allergies/Adverse Reactions: Allergies No Known Allergies Allergy (Verified 07/13/16 20:38) Certification: Further, I certify that my clinical findings support that this patient is homebound (i.e. absences from home require considerable and taxing effort and are for medical reasons or voodoo services or infrequently or short duration when for other reasons) because: Homebound Reason: Leaving home requires considerable and taxing effort due to condition (COPD, heart failure with dyspnea on exertion) Attestation: My signature below is to certify that this patient is under my care and that I, or nurse practitioner, or a physician's assistant professor of surgery working with me, has a face-to -face encounter with this patient.
[2016-09-19 12:49] VITALS: BP 95/68
== END 2016-09-19 16:30 | disposition home health service (06) | DRG 291 ==
LOC: INPPIK 14:01 → EMEROOPIK 14:01 → INPPIK 19:32
PROVIDERS: ADMIT Internal Medicine; ATTEND Internal Medicine

== ENCOUNTER 2016-09-26 17:22 | Inpatient (IN) ==
[2016-09-27] MEDS: Acetaminophen 325 MG TABLET PO PRN (14:02)
--- NOTE | 2016-09-27 15:49 | Internal Med History&Physical ---
Date of Encounter: 09/27/16 Time of Encounter: 15:25 Assessment and Plan (1) Congestive heart failure Current visit: No Status: Acute Continue Lanoxin, Lasix, Imdur, and Lopressor. Qualifiers: Congestive heart failure type: unspecified congestive heart failure type Congestive heart failure chronicity: acute on chronic Qualified Code(s): I50.9 - Heart failure, unspecified (2) Atrial fibrillation Current visit: Yes Status: Chronic Discontinue amiodarone since it is ineffective. Continue Lopressor and Lanoxin for rate control. Continue Xarelto for anticoagulation. Qualifiers: Atrial fibrillation type: chronic Qualified Code(s): I48.2 - Chronic atrial fibrillation (3) Neutrophilic leukocytosis Current visit: No Status: Acute We will monitor CBC. (4) COPD (chronic obstructive pulmonary disease) Current visit: No Status: Chronic We will give albuterol nebs as needed and use Symbicort. Qualifiers: COPD type: unspecified COPD Qualified Code(s): J44.9 - Chronic obstructive pulmonary disease, unspecified Internal Medicine - H&P: HPI Chief complaint: Dyspnea Admitted From: Hospital to Hospital Transfer Plans for Post Hospital Care: Home History of present illness: Mr. Abdullahi is a 66 year old male was hospitalized at [facility] September 30 after presenting with dyspnea. He was felt to have acute and chronic respiratory failure. He was stabilized and admitted [facility] swing bed for ongoing therapy. He was hospitalized at [facility] September 17- with dyspnea. His respiratory history significant for having smoked since age 10 up to 2-1/2 packs per day. He states he wears oxygen at home 24/7 at 4 L/m. He has a diagnosis of COPD. Chest CT done during his recent [facility] stay showed bibasilar pneumonia and indeterminate 10 mm left upper lobe nodule. Past Med Surg Social Fam HX - Past Medical History Medical history: atrial fibrillation, COPD, coronary artery disease, CVA, DVT, dementia, hyperlipidemia, hypertension, renal disease, thyroid disease, other Psychiatric history: anxiety, depression - Past Surgical History Surgical History: coronary bypass (CABG), IVC Filter - Social History Smoking Status: Former smoker Smokeless Tobacco Status: No Alcohol use: none Drug use: none - Family History Mother Living Status: Hx Family Cardiac Disorders: Yes (MD) Sister Living Status: Hx Family Cardiac Disorders: Yes (MD) Father Living Status: Internal Medicine - H&P: Meds Levothyroxine [Synthroid] 125 mcg PO 0630 07/13/16 [History] Amiodarone [Cordarone] 200 mg PO DAILY 09/16/16 [History] Furosemide [Lasix] 40 mg PO DAILY 09/16/16 [History] Ropinirole [Requip] 0.25 mg PO HS 09/16/16 [History] Ascorbic Acid [Vitamin C] 500 mg PO DAILY #30 tablet.er 09/19/16 [Rx] Digoxin [Lanoxin] 0.25 mg PO DAILY #30 tablet 09/19/16 [Rx] Ferrous Sulfate 325 mg PO DAILY #30 tablet.dr 09/19/16 [Rx] Folic Acid 1 mg PO DAILY #30 tablet 09/19/16 [Rx] Isosorbide MONOnitrate (24 HR) [Imdur] 30 mg PO DAILY #30 tab.er.24h 09/19/16 [ Rx] Metoprolol [Lopressor] 25 mg PO BID #60 tablet 09/19/16 [Rx] Rivaroxaban [Xarelto] 20 mg PO DAILY #30 tablet 09/19/16 [Rx] Aspirin Enteric Coated [Aspirin EC] 81 mg PO DAILY 09/20/16 [History] Atorvastatin [Lipitor] 40 mg PO HS 09/20/16 [History] Citalopram Hydrobromide [Celexa] 40 mg PO DAILY 09/20/16 [History] Docusate [Colace] 100 mg PO DAILY PRN 09/20/16 [History] Fluticasone/Vilanterol [Breo Ellipta 100-25 Mcg INH] 1 each IH DAILY 09/20/16 [ History] Levofloxacin 750 mg PO DAILY #5 tablet 09/26/16 [Rx] Allergies No Known Allergies Allergy (Verified 09/20/16 13:30) All Systems PM: A 10-system review of systems was performed and is negative for pertinent findings except as documented above in the HPI. Review of systems: Review of systems from his recent [facility] stay were reviewed and revised as below. General: He states his weight has been stable the past few months Cardiovascular: He has hypertension and known ASHD with possible remote MD. He states he had 4 vessel CABG approximately 2004. He had DVT with IVC filter placed several years ago. He has diagnoses of heart failure but does not know details. He has chronic atrial fibrillation. 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 He uses a cane or walker to ambulate at home. He denies seizures. Endocrine: He has hyperlipidemia and hypothyroidism but denies diabetes. TSH was minimally elevated at 5.348 during his last [facility] stay. Hematology/oncology: He was found to have anemia during his last [facility] stay. Anemia testing showed iron 18, transferrin saturation 4%, transferrin 295, ferritin 88, folate 4.5, B12 333. He was started on ferrous sulfate with vitamin C and folic acid supplements. Psychiatric: He has anxiety but denies depression or other mental health issues Musk skeletal: He has DJD but no known gout or other bone joint or muscle disorders. - Constitutional Vitals: Temp Pulse Resp BP Pulse Ox 97.7 F 75 16 118/68 93 09/27/16 13:49 09/27/16 13:49 09/27/16 13:49 09/27/16 13:49 09/27/16 13:49 Exam: Gen.: He is a well-developed overweight male appears in no severe distress at present time. HEENT: Head is atraumatic and normal cephalic. Eyes: EOMI. There is no scleral icterus. Mouth: Mucosa is moist. Neck: Supple and nontender. There is no thyromegaly or adenopathy noted. Heart: Irregularly irregular without murmurs or gallops Lungs: No wheezes or crackles are heard. He has diminished breath sounds diffusely Abdomen: He has a large abdomen. It is nontender to palpation. No masses or guarding are noted. Extremities: There is no cyanosis edema or clubbing noted. Dorsalis pedis and posttibial pulses are trace palpable bilaterally. Neurologic: Mental status: He is able to answer a few questions but is hard of hearing and does not seem to be a good historian. Cranial nerves: Smile is symmetric. Forehead wrinkles bilaterally. Tongue protrudes midline. EOMI. Motor: There is no pronator drift. Cerebellar: Finger to nose is intact bilaterally. Skin: Warm and dry
[2016-09-27] MEDS: *HR* Rivaroxaban 10 MG TABLET PO SCH (16:57)
[2016-09-28] MEDS: Furosemide 40 MG TABLET PO SCH (07:24)
[2016-09-28] MEDS: Aspirin Enteric Coated 81 MG Tablet PO SCH (07:25)
[2016-09-28] MEDS: Folic Acid 1 MG TABLET PO SCH (07:26)
[2016-09-28] MEDS: Isosorbide MONOnitrate (24 HR) 30 MG TAB.ER.24H PO SCH (07:26)
[2016-09-28] MEDS: *HR* Digoxin 0.25 MG TABLET PO SCH (07:27)
[2016-09-28 07:43] LABS: Basophils % 0.1 %; Hematocrit 40.5 % (37.5-50.1); Hemoglobin 12.1 g/dL (12.9-16.9); Immature Granulocytes % 0.4 % (0-4); Lymphocytes # 1.3 K/mcL (0.6-4.6); Lymphocytes % 8.7 %; Mean Corpuscular HGB Conc 29.9 g/dL (31.6-35.5); Mean Corpuscular Hemoglobin 28.5 pg (28.0-33.3); Mean Corpuscular Volume 95.5 fL (83.0-100.0); Mean Platelet Volume 11.3 fL (9.4-12.4); Monocytes # 1.7 K/mcL (0.0-1.3); Neutrophils # 12.2 K/mcL (1.6-8.9); Platelet Count 206 K/mcL (140-400); Red Blood Count 4.24 M/mcL (4.19-5.50); Red Cell Distribution Width 16.1 % (11.5-14.5); Segmented Neutrophils % 79.8 %
[2016-09-28] MEDS ORDERED: Ascorbic Acid 500 MG TABLET PO SCH ×3 (08:00)
[2016-09-28 08:52] LABS: BUN/Creatinine Ratio 49 (6-26); Blood Urea Nitrogen 37 mg/dL (8-26); Calcium 8.3 mg/dL (8.6-10.8); Carbon Dioxide 38 mEq/L (19-29); Chloride 97 mEq/L (98-109); Glucose 84 mg/dL (70-99); Osmolality,Calculated 302 (280-300); Potassium 4.6 mEq/L (3.5-4.5); Sodium 142 mEq/L (136-145); eGFR For African Americans > 60 (> 60); eGFR For Non-African Americans > 60 (> 60)
[2016-09-28] MEDS ORDERED: PredniSONE 20 MG TABLET PO SCH (09:00)
[2016-09-28] MEDS ORDERED: *HR* Amiodarone 200 MG TABLET PO SCH (09:00)
[2016-09-28] MEDS ORDERED: PredniSONE 10 MG TABLET PO SCH (09:00)
--- NOTE | 2016-09-28 15:33 | Internal Med Progress Note ---
Date of Encounter: 09/28/16 Time of Encounter: 15:20 - Assessment and plan (1) Congestive heart failure Current Visit: No Status: Acute Assessment and plan: September 28. Continue Lanoxin, Lasix, Imdur, and Lopressor Qualifiers: Congestive heart failure type: unspecified congestive heart failure type Congestive heart failure chronicity: acute on chronic Qualified Code(s): I50.9 - Heart failure, unspecified (2) Atrial fibrillation Current Visit: Yes Status: Chronic Assessment and plan: September 28. Continue Lopressor, Lanoxin, and Xarelto. Qualifiers: Atrial fibrillation type: chronic Qualified Code(s): I48.2 - Chronic atrial fibrillation (3) Neutrophilic leukocytosis Current Visit: No Status: Acute Assessment and plan: September 28. WBC has increased but differential has slightly improved. We will recheck chest x-ray to follow-up on infiltrates seen last week. We will also check UA. Continue Levaquin for now (4) COPD (chronic obstructive pulmonary disease) Current Visit: No Status: Chronic Assessment and plan: September 28. Continue Symbicort and prn albuterol nebs. Qualifiers: COPD type: unspecified COPD Qualified Code(s): J44.9 - Chronic obstructive pulmonary disease, unspecified - Subjective Interval history: September 28. He has no new complaints. - Constitutional Vitals: Temp Pulse Resp BP Pulse Ox 98.5 F 78 18 95/52 96 09/28/16 07:24 09/28/16 14:10 09/28/16 14:10 09/28/16 14:10 09/28/16 14:10 Exam: He is resting comfortably in bed. His extremities show no pitting edema. His affect is bright and cheerful. I reviewed his medications and lab results. Internal Medicine: Result - Labs CBC & Chem 7: 09/28/16 06:50 09/28/16 06:50 Labs: Short CBC 09/28/16 Range/Units 06:50 WBC 15.3 H (4.3-11.1) K/mcL Hgb 12.1 L (12.9-16.9) g/dL Hct 40.5 (37.5-50.1) % Plt Count 206 (140-400) K/mcL Neutrophils # 12.2 H (1.6-8.9) K/mcL BMP 09/28/16 06:50 Sodium 142 Potassium 4.6 H Chloride 97 L Carbon Dioxide 38 H BUN 37 H Creatinine 0.76 Glucose 84 Calcium 8.3 L Consult Discharge Plan - Plan Referrals: NO,PCP [Primary Care Provider] - 1 week
[2016-09-28] MEDS: *HR* Rivaroxaban 10 MG TABLET PO SCH (16:42)
[2016-09-29] MEDS: Ascorbic Acid 500 MG TABLET PO SCH (06:30)
[2016-09-29] MEDS: Aspirin Enteric Coated 81 MG Tablet PO SCH (08:19)
[2016-09-29] MEDS: Folic Acid 1 MG TABLET PO SCH (08:20)
[2016-09-29] MEDS: *HR* Digoxin 0.25 MG TABLET PO SCH (08:20)
[2016-09-29] MEDS: Isosorbide MONOnitrate (24 HR) 30 MG TAB.ER.24H PO SCH (08:24)
[2016-09-29] MEDS: Furosemide 40 MG TABLET PO SCH (08:27)
[2016-09-29] MEDS: *HR* Rivaroxaban 10 MG TABLET PO SCH (17:21)
[2016-09-30] MEDS: Ascorbic Acid 500 MG TABLET PO SCH (06:54)
[2016-09-30 07:42] LABS: Basophils % 0.2 %; Eosinophils # 0.5 K/mcL (0.0-0.6); Eosinophils % 3.9 %; Hematocrit 36.6 % (37.5-50.1); Hemoglobin 10.9 g/dL (12.9-16.9); Immature Granulocytes % 0.5 % (0-4); Lymphocytes # 1.8 K/mcL (0.6-4.6); Lymphocytes % 13.5 %; Mean Corpuscular HGB Conc 29.8 g/dL (31.6-35.5); Mean Corpuscular Hemoglobin 28.9 pg (28.0-33.3); Mean Corpuscular Volume 97.1 fL (83.0-100.0); Mean Platelet Volume 11.1 fL (9.4-12.4); Monocytes # 1.5 K/mcL (0.0-1.3); Monocytes % 11.5 %; Neutrophils # 9.2 K/mcL (1.6-8.9); Platelet Count 169 K/mcL (140-400); Red Blood Count 3.77 M/mcL (4.19-5.50); Red Cell Distribution Width 15.9 % (11.5-14.5); Segmented Neutrophils % 70.4 %
[2016-09-30 08:37] LABS: BUN/Creatinine Ratio 40 (6-26); Blood Urea Nitrogen 32 mg/dL (8-26); Calcium 8.1 mg/dL (8.6-10.8); Carbon Dioxide 38 mEq/L (19-29); Chloride 98 mEq/L (98-109); Glucose 90 mg/dL (70-99); Osmolality,Calculated 300 (280-300); Potassium 4.4 mEq/L (3.5-4.5); Sodium 142 mEq/L (136-145); eGFR For African Americans > 60 (> 60); eGFR For Non-African Americans > 60 (> 60)
[2016-09-30] MEDS: Furosemide 40 MG TABLET PO SCH (09:40)
[2016-09-30] MEDS: Folic Acid 1 MG TABLET PO SCH (09:56)
[2016-09-30] MEDS: Aspirin Enteric Coated 81 MG Tablet PO SCH (09:57)
[2016-09-30] MEDS: Isosorbide MONOnitrate (24 HR) 30 MG TAB.ER.24H PO SCH (09:57)
[2016-09-30] MEDS: *HR* Digoxin 0.25 MG TABLET PO SCH (09:57)
[2016-09-30] MEDS ORDERED: Ondansetron ODT 4 MG TAB.RAPDIS SL PRN (14:18)
--- NOTE | 2016-09-30 14:43 | Internal Med Progress Note ---
Date of Encounter: 09/30/16 Time of Encounter: 14:35 - Assessment and plan (1) Congestive heart failure Current Visit: No Status: Acute Assessment and plan: September 28. Continue Lanoxin, Lasix, Imdur, and Lopressor September 30. We will recheck labs in a.m. Qualifiers: Congestive heart failure type: unspecified congestive heart failure type Congestive heart failure chronicity: acute on chronic Qualified Code(s): I50.9 - Heart failure, unspecified (2) Atrial fibrillation Current Visit: Yes Status: Chronic Assessment and plan: September 28. Continue Lopressor, Lanoxin, and Xarelto. Qualifiers: Atrial fibrillation type: chronic Qualified Code(s): I48.2 - Chronic atrial fibrillation (3) Neutrophilic leukocytosis Current Visit: No Status: Acute Assessment and plan: September 28. WBC has increased but differential has slightly improved. We will recheck chest x-ray to follow-up on infiltrates seen last week. We will also check UA. Continue Levaquin for now September 30. Improved WBC and differential. We will discontinue Levaquin (4) COPD (chronic obstructive pulmonary disease) Current Visit: No Status: Chronic Assessment and plan: September 28. Continue Symbicort and prn albuterol nebs. Qualifiers: COPD type: unspecified COPD Qualified Code(s): J44.9 - Chronic obstructive pulmonary disease, unspecified - Subjective Interval history: September 28. He has no new complaints. September 30. He had an episode of vomiting after eating lunch today. He denies abdominal pain or other new problems. - Constitutional Vitals: Temp Pulse Resp BP Pulse Ox 98.0 F 100 20 93/56 97 09/30/16 08:55 09/30/16 08:55 09/30/16 08:55 09/30/16 09:41 09/30/16 09:00 Exam: He is resting comfortably in a chair at bedside. His extremities show 0-trace edema on the lower legs. His heart is irregularly irregular. Lungs are clear anteriorly. Abdomen shows bowel sounds present. It is nontender to palpation. I reviewed his medications and lab results. Internal Medicine: Result - Labs CBC & Chem 7: 09/30/16 06:51 09/30/16 06:51 Labs: Short CBC 09/30/16 Range/Units 06:51 WBC 13.1 H (4.3-11.1) K/mcL Hgb 10.9 L (12.9-16.9) g/dL Hct 36.6 L (37.5-50.1) % Plt Count 169 (140-400) K/mcL Neutrophils # 9.2 H (1.6-8.9) K/mcL BMP 09/30/16 06:51 Sodium 142 Potassium 4.4 Chloride 98 Carbon Dioxide 38 H BUN 32 H Creatinine 0.81 Glucose 90 Calcium 8.1 L Consult Discharge Plan - Plan Referrals: NO,PCP [Primary Care Provider] - 1 week
[2016-09-30] MEDS: *HR* Rivaroxaban 10 MG TABLET PO SCH (16:09)
[2016-10-01 06:01] LABS: Basophils % 0.1 %; Eosinophils # 0.5 K/mcL (0.0-0.6); Eosinophils % 4.1 %; Hematocrit 34.3 % (37.5-50.1); Immature Granulocytes % 0.6 % (0-4); Lymphocytes # 1.8 K/mcL (0.6-4.6); Lymphocytes % 15.3 %; Mean Corpuscular HGB Conc 29.2 g/dL (31.6-35.5); Mean Corpuscular Hemoglobin 28.7 pg (28.0-33.3); Mean Corpuscular Volume 98.3 fL (83.0-100.0); Mean Platelet Volume 11.4 fL (9.4-12.4); Monocytes # 1.3 K/mcL (0.0-1.3); Monocytes % 11.1 %; Neutrophils # 8.1 K/mcL (1.6-8.9); Platelet Count 163 K/mcL (140-400); Red Blood Count 3.49 M/mcL (4.19-5.50); Red Cell Distribution Width 16.2 % (11.5-14.5); Segmented Neutrophils % 68.8 %
[2016-10-01] MEDS: Ascorbic Acid 500 MG TABLET PO SCH (06:09)
[2016-10-01 06:26] LABS: BUN/Creatinine Ratio 30 (6-26); Blood Urea Nitrogen 23 mg/dL (8-26); Calcium 7.9 mg/dL (8.6-10.8); Carbon Dioxide 38 mEq/L (19-29); Chloride 98 mEq/L (98-109); Glucose 81 mg/dL (70-99); Osmolality,Calculated 299 (280-300); Potassium 4.7 mEq/L (3.5-4.5); Sodium 143 mEq/L (136-145); eGFR For African Americans > 60 (> 60); eGFR For Non-African Americans > 60 (> 60)
[2016-10-01 06:36] LABS: Digoxin 1.4 ng/mL (0.8-2.0)
[2016-10-01] MEDS: Aspirin Enteric Coated 81 MG Tablet PO SCH (08:11)
[2016-10-01] MEDS: Isosorbide MONOnitrate (24 HR) 30 MG TAB.ER.24H PO SCH (08:11)
[2016-10-01] MEDS: Furosemide 40 MG TABLET PO SCH (08:11)
[2016-10-01] MEDS: Folic Acid 1 MG TABLET PO SCH (08:11)
[2016-10-01] MEDS: *HR* Digoxin 0.25 MG TABLET PO SCH (08:12)
[2016-10-01] MEDS: *HR* Rivaroxaban 10 MG TABLET PO SCH (17:09)
[2016-10-02] MEDS: Ascorbic Acid 500 MG TABLET PO SCH (06:14)
[2016-10-02] MEDS: Furosemide 40 MG TABLET PO SCH (08:00)
[2016-10-02] MEDS: Folic Acid 1 MG TABLET PO SCH (08:00)
[2016-10-02] MEDS: Aspirin Enteric Coated 81 MG Tablet PO SCH ×2 (08:00→17:55)
[2016-10-02] MEDS: *HR* Digoxin 0.25 MG TABLET PO SCH ×2 (08:01→09:10)
[2016-10-02] MEDS: Isosorbide MONOnitrate (24 HR) 30 MG TAB.ER.24H PO SCH ×2 (08:03→09:11)
--- NOTE | 2016-10-02 15:20 | Internal Med Progress Note ---
Date of Encounter: 10/02/16 Time of Encounter: 15:10 - Assessment and plan (1) Congestive heart failure Current Visit: No Status: Acute Assessment and plan: September 28. Continue Lanoxin, Lasix, Imdur, and Lopressor September 30. We will recheck labs in a.m. October 02. BN peptide was 150 on 09/20/2016. Continue present treatment Qualifiers: Congestive heart failure type: unspecified congestive heart failure type Congestive heart failure chronicity: acute on chronic Qualified Code(s): I50.9 - Heart failure, unspecified (2) Atrial fibrillation Current Visit: Yes Status: Chronic Assessment and plan: September 28. Continue Lopressor, Lanoxin, and Xarelto. Qualifiers: Atrial fibrillation type: chronic Qualified Code(s): I48.2 - Chronic atrial fibrillation (3) Neutrophilic leukocytosis Current Visit: No Status: Acute Assessment and plan: September 28. WBC has increased but differential has slightly improved. We will recheck chest x-ray to follow-up on infiltrates seen last week. We will also check UA. Continue Levaquin for now September 30. Improved WBC and differential. We will discontinue Levaquin (4) COPD (chronic obstructive pulmonary disease) Current Visit: No Status: Chronic Assessment and plan: September 28. Continue Symbicort and prn albuterol nebs. Qualifiers: COPD type: unspecified COPD Qualified Code(s): J44.9 - Chronic obstructive pulmonary disease, unspecified (5) Anemia Current Visit: No Status: Acute Assessment and plan: October 02. Anemia testing last admission showed deficiency of iron and vitamin C. Continue supplements. Will decrease aspirin to every 48 hours to avoid GI bleeding. Qualifiers: Anemia type: unspecified type Qualified Code(s): D64.9 - Anemia, unspecified - Subjective Interval history: September 28. He has no new complaints. September 30. He had an episode of vomiting after eating lunch today. He denies abdominal pain or other new problems. October 02. He has no complaints and feels well - Constitutional Vitals: Temp Pulse Resp BP Pulse Ox 98.6 F 83 16 92/51 97 10/02/16 07:03 10/02/16 07:03 10/02/16 07:03 10/02/16 07:03 10/02/16 07:03 Exam: He is sitting on the side of the bed and appears in no acute distress. His affect is bright and cheerful. Extremities show trace edema. Heart is irregularly irregular. Lungs are clear. I reviewed his medications and lab results. Internal Medicine: Result - Labs CBC & Chem 7: 10/01/16 04:30 10/01/16 04:30 Consult Discharge Plan - Plan Referrals: NO,PCP [Primary Care Provider] - 1 week
[2016-10-02] MEDS: *HR* Rivaroxaban 10 MG TABLET PO SCH (17:55)
[2016-10-03] MEDS: Ascorbic Acid 500 MG TABLET PO SCH (06:06)
[2016-10-03] MEDS: *HR* Digoxin 0.25 MG TABLET PO SCH (08:47)
[2016-10-03] MEDS: Furosemide 40 MG TABLET PO SCH (08:47)
[2016-10-03] MEDS: Isosorbide MONOnitrate (24 HR) 30 MG TAB.ER.24H PO SCH (08:47)
[2016-10-03] MEDS: Folic Acid 1 MG TABLET PO SCH (08:47)
[2016-10-03] MEDS: *HR* Rivaroxaban 10 MG TABLET PO SCH (18:07)
[2016-10-03] MEDS: Acetaminophen 325 MG TABLET PO PRN (21:09)
[2016-10-04] MEDS: Ascorbic Acid 500 MG TABLET PO SCH (06:16)
[2016-10-04] MEDS: Folic Acid 1 MG TABLET PO SCH (09:34)
[2016-10-04] MEDS: *HR* Digoxin 0.25 MG TABLET PO SCH (09:47)
[2016-10-04] MEDS: Isosorbide MONOnitrate (24 HR) 30 MG TAB.ER.24H PO SCH (09:48)
[2016-10-04] MEDS: Furosemide 40 MG TABLET PO SCH (09:48)
--- NOTE | 2016-10-04 15:35 | Internal Med Progress Note ---
Date of Encounter: 10/04/16 Time of Encounter: 15:25 - Assessment and plan (1) Congestive heart failure Current Visit: No Status: Acute Assessment and plan: September 28. Continue Lanoxin, Lasix, Imdur, and Lopressor September 30. We will recheck labs in a.m. October 02. BN peptide was 150 on 09/20/2016. Continue present treatment October 04. He remains asymptomatic. Continue present management Qualifiers: Congestive heart failure type: unspecified congestive heart failure type Congestive heart failure chronicity: acute on chronic Qualified Code(s): I50.9 - Heart failure, unspecified (2) Atrial fibrillation Current Visit: Yes Status: Chronic Assessment and plan: September 28. Continue Lopressor, Lanoxin, and Xarelto. Qualifiers: Atrial fibrillation type: chronic Qualified Code(s): I48.2 - Chronic atrial fibrillation (3) Neutrophilic leukocytosis Current Visit: No Status: Acute Assessment and plan: September 28. WBC has increased but differential has slightly improved. We will recheck chest x-ray to follow-up on infiltrates seen last week. We will also check UA. Continue Levaquin for now September 30. Improved WBC and differential. We will discontinue Levaquin October 04. WBC was near normal at 11.7 on 10/01/2016. Continue to observe off antibiotics. He remains asymptomatic (4) COPD (chronic obstructive pulmonary disease) Current Visit: No Status: Chronic Assessment and plan: September 28. Continue Symbicort and prn albuterol nebs. Qualifiers: COPD type: unspecified COPD Qualified Code(s): J44.9 - Chronic obstructive pulmonary disease, unspecified (5) Anemia Current Visit: No Status: Acute Assessment and plan: October 02. Anemia testing last admission showed deficiency of iron and vitamin C. Continue supplements. Will decrease aspirin to every 48 hours to avoid GI bleeding. October 04. Hemoglobin had decreased to 10.0 on 10/01/2016. We will recheck labs in a.m. Qualifiers: Anemia type: unspecified type Qualified Code(s): D64.9 - Anemia, unspecified - Subjective Interval history: September 28. He has no new complaints. September 14. He had an episode of vomiting after eating lunch today. He denies abdominal pain or other new problems. October 02. He has no complaints and feels well . October 04. He has no new complaints and feels well - Constitutional Vitals: Temp Pulse Resp BP Pulse Ox 98.0 F 77 20 108/55 98 10/04/16 14:15 10/04/16 14:15 10/04/16 14:15 10/04/16 14:15 10/04/16 14:15 Exam: He is sitting in a chair resting comfortably. His legs show trace edema in the lower anterior shins. Heart is irregularly irregular. Lungs are clear. I reviewed his medications and lab results. Internal Medicine: Result - Labs CBC & Chem 7: 10/01/16 04:30 10/01/16 04:30 Consult Discharge Plan - Plan Referrals: NO,PCP [Primary Care Provider] - 1 week
[2016-10-04] MEDS: *HR* Rivaroxaban 10 MG TABLET PO SCH (16:44)
[2016-10-04] MEDS: Aspirin Enteric Coated 81 MG Tablet PO SCH (16:44)
[2016-10-05] MEDS: Ascorbic Acid 500 MG TABLET PO SCH (05:57)
[2016-10-05 06:41] LABS: Basophils % 0.2 %; Eosinophils # 0.3 K/mcL (0.0-0.6); Eosinophils % 2.6 %; Hematocrit 30.5 % (37.5-50.1); Hemoglobin 8.9 g/dL (12.9-16.9); Immature Granulocytes % 0.9 % (0-4); Lymphocytes # 1.6 K/mcL (0.6-4.6); Lymphocytes % 14.6 %; Mean Corpuscular HGB Conc 29.2 g/dL (31.6-35.5); Mean Corpuscular Hemoglobin 29.1 pg (28.0-33.3); Mean Corpuscular Volume 99.7 fL (83.0-100.0); Monocytes # 1.2 K/mcL (0.0-1.3); Neutrophils # 7.8 K/mcL (1.6-8.9); Platelet Count 162 K/mcL (140-400); Red Blood Count 3.06 M/mcL (4.19-5.50); Red Cell Distribution Width 17.1 % (11.5-14.5); Segmented Neutrophils % 70.7 %
[2016-10-05 06:55] LABS: Calcium 8.1 mg/dL (8.6-10.8); Chloride 99 mEq/L (98-109); Glucose 94 mg/dL (70-99); Magnesium 1.9 mg/dL (1.6-2.6); Potassium 4.5 mEq/L (3.5-4.5); Sodium 144 mEq/L (136-145); eGFR For African Americans > 60 (> 60); eGFR For Non-African Americans > 60 (> 60)
[2016-10-05 07:02] LABS: Digoxin 0.9 ng/mL (0.8-2.0)
[2016-10-05 07:05] LABS: BUN/Creatinine Ratio 31 (6-26); Blood Urea Nitrogen 23 mg/dL (8-26); Carbon Dioxide 39 mEq/L (19-29); Osmolality,Calculated 301 (280-300)
[2016-10-05] MEDS: Folic Acid 1 MG TABLET PO SCH (09:18)
[2016-10-05] MEDS: Furosemide 40 MG TABLET PO SCH (09:18)
[2016-10-05] MEDS: Isosorbide MONOnitrate (24 HR) 30 MG TAB.ER.24H PO SCH (09:18)
[2016-10-05] MEDS: *HR* Digoxin 0.25 MG TABLET PO SCH (09:18)
[2016-10-05] MEDS: *HR* Rivaroxaban 10 MG TABLET PO SCH (16:58)
[2016-10-06] MEDS: Ascorbic Acid 500 MG TABLET PO SCH (05:11)
[2016-10-06] MEDS: Folic Acid 1 MG TABLET PO SCH (08:23)
[2016-10-06] MEDS: Isosorbide MONOnitrate (24 HR) 30 MG TAB.ER.24H PO SCH (08:24)
[2016-10-06] MEDS: Furosemide 40 MG TABLET PO SCH (08:25)
[2016-10-06] MEDS: *HR* Digoxin 0.25 MG TABLET PO SCH (08:26)
--- NOTE | 2016-10-06 17:03 | Internal Med Progress Note ---
Date of Encounter: 10/06/16 Time of Encounter: 16:50 - Assessment and plan (1) Congestive heart failure Current Visit: No Status: Acute Assessment and plan: September 28. Continue Lanoxin, Lasix, Imdur, and Lopressor September 30. We will recheck labs in a.m. October 02. BN peptide was 150 on 09/20/2016. Continue present treatment October 04. He remains asymptomatic. Continue present management October 06. Continue Lanoxin, Lasix, Imdur, and Lopressor. Qualifiers: Congestive heart failure type: unspecified congestive heart failure type Congestive heart failure chronicity: acute on chronic Qualified Code(s): I50.9 - Heart failure, unspecified (2) Atrial fibrillation Current Visit: Yes Status: Chronic Assessment and plan: September 28. Continue Lopressor, Lanoxin, and Xarelto. Qualifiers: Atrial fibrillation type: chronic Qualified Code(s): I48.2 - Chronic atrial fibrillation (3) Neutrophilic leukocytosis Current Visit: No Status: Acute Assessment and plan: September 28. WBC has increased but differential has slightly improved. We will recheck chest x-ray to follow-up on infiltrates seen last week. We will also check UA. Continue Levaquin for now September 30. Improved WBC and differential. We will discontinue Levaquin October 04. WBC was near normal at 11.7 on 10/01/2016. Continue to observe off antibiotics. He remains asymptomatic October 06. WBC is now normal with no left shift. Remain off antibiotics. (4) COPD (chronic obstructive pulmonary disease) Current Visit: No Status: Chronic Assessment and plan: September 28. Continue Symbicort and prn albuterol nebs. Qualifiers: COPD type: unspecified COPD Qualified Code(s): J44.9 - Chronic obstructive pulmonary disease, unspecified (5) Anemia Current Visit: No Status: Acute Assessment and plan: October 02. Anemia testing last admission showed deficiency of iron and vitamin C. Continue supplements. Will decrease aspirin to every 48 hours to avoid GI bleeding. October 04. Hemoglobin had decreased to 10.0 on 10/01/2016. We will recheck labs in a.m. October 06. Hemoglobin has decreased further to 8.9. Discontinue aspirin and continue to monitor CBC. Qualifiers: Anemia type: unspecified type Qualified Code(s): D64.9 - Anemia, unspecified - Subjective Interval history: September 28. He has no new complaints. September 30. He had an episode of vomiting after eating lunch today. He denies abdominal pain or other new problems. October 02. He has no complaints and feels well . October 04. He has no new complaints and feels well October 06. He has no new complaints and feels well. He denies visible melena or hematochezia. He denies dyspnea on exertion. - Constitutional Vitals: Temp Pulse Resp BP Pulse Ox 97.9 F 65 18 96/65 96 10/06/16 06:46 10/06/16 06:46 10/06/16 06:46 10/06/16 06:46 10/06/16 06:46 Exam: He is sitting in a chair resting comfortably. His heart is irregularly irregular. Lungs are clear anteriorly. I reviewed his medications and lab results. Internal Medicine: Result - Labs CBC & Chem 7: 10/05/16 06:31 10/05/16 06:31 Consult Discharge Plan - Plan Referrals: NO,PCP [Primary Care Provider] - 1 week
[2016-10-06] MEDS: *HR* Rivaroxaban 10 MG TABLET PO SCH (17:07)
[2016-10-07] MEDS: Ascorbic Acid 500 MG TABLET PO SCH (07:10)
[2016-10-07] MEDS: *HR* Digoxin 0.25 MG TABLET PO SCH (08:38)
[2016-10-07] MEDS: Folic Acid 1 MG TABLET PO SCH (08:39)
[2016-10-07] MEDS: Furosemide 40 MG TABLET PO SCH (08:41)
[2016-10-07] MEDS: Isosorbide MONOnitrate (24 HR) 30 MG TAB.ER.24H PO SCH (08:41)
--- NOTE | 2016-10-07 09:34 | Discharge Summary ---
Date of Encounter: 10/07/16 Time of Encounter: 09:15 - Discharge Diagnosis (1) Congestive heart failure Priority: Primary Status: Acute Qualifiers: Congestive heart failure type: unspecified congestive heart failure type Congestive heart failure chronicity: acute on chronic Qualified Code(s): I50.9 - Heart failure, unspecified (2) Atrial fibrillation Priority: Secondary Status: Chronic Qualifiers: Atrial fibrillation type: chronic Qualified Code(s): I48.2 - Chronic atrial fibrillation (3) Neutrophilic leukocytosis Priority: Secondary Status: Resolved (4) COPD (chronic obstructive pulmonary disease) Priority: Secondary Status: Chronic Qualifiers: COPD type: unspecified COPD Qualified Code(s): J44.9 - Chronic obstructive pulmonary disease, unspecified (5) Anemia Priority: Secondary Status: Acute Qualifiers: Anemia type: iron deficiency Iron deficiency anemia type: unspecified iron deficiency Qualified Code(s): D50.9 - Iron deficiency anemia, unspecified - Discharge Medications Prescriptions: Ascorbic Acid [Vitamin C] 500 mg PO DAILY #30 tablet.er Ferrous Sulfate 325 mg PO DAILY #30 tablet.dr Isosorbide MONOnitrate (24 HR) [Imdur] 60 mg PO DAILY #30 tab.er.24h Home Medications: Levothyroxine [Synthroid] 125 m[place] 0630 07/13/16 [History] Furosemide [Lasix] 40 mg PO DAILY 09/16/16 [History] Ropinirole [Requip] 0.25 mg PO HS 09/16/16 [History] Digoxin [Lanoxin] 0.25 mg PO DAILY #30 tablet 09/19/16 [Rx] Folic Acid 1 mg PO DAILY #30 tablet 09/19/16 [Rx] Metoprolol [Lopressor] 25 mg PO BID #60 tablet 09/19/16 [Rx] Rivaroxaban [Xarelto] 20 mg PO DAILY #30 tablet 09/19/16 [Rx] Atorvastatin [Lipitor] 40 mg PO HS 09/20/16 [History] Docusate [Colace] 100 mg PO DAILY PRN 09/20/16 [History] Fluticasone/Vilanterol [Breo Ellipta 100-25 Mcg INH] 1 each IH DAILY 09/20/16 [ History] Ascorbic Acid [Vitamin C] 500 mg PO DAILY #30 tablet.er 10/07/16 [Rx] Citalopram Hydrobromide [Celexa] 20 mg PO DAILY #0 10/07/16 [Rx] Ferrous Sulfate 325 mg PO DAILY #30 tablet. 10/07/16 [Rx] Isosorbide MONOnitrate (24 HR) [Imdur] 60 mg PO DAILY #30 tab.er.24h 10/07/16 [ Rx] Allergies/Adverse Reactions: Allergies No Known Allergies Allergy (Verified 09/20/16 13:30) Date of admission: 09/27/16 10:09 Primary care physician: Sara Rabago M.D. Consults: 09/27/16 10:35 Consult to Merchandising Execution Manager [CONS] Routine Reason for SW Consult: discharge planning 09/27/16 10:50 Consult to Occupational Therapy [CONS] Routine Comment: evaluate, develop, and implement plan of care Consult to Physical Therapy [CONS] Routine Comment: evaluate, develop, and implement plan of care Consult to Merchandising Execution Manager [CONS] Routine Reason for SW Consult: discharge planning - Patient Status Disposition: Home Health Service Functional capacity at discharge: uses cane/walker Overall status at discharge: patient is progressing back to baseline - Discharge Instructions Follow Up With: Sara Rabago MD [Partnered Physician] - 1 week - Diet and Activity Activity: as per physical therapy, wear oxygen at all times Diet: low fat, low cholesterol Hospital course: Mr. Abdullahi is a 66 year old male who was hospitalized at [facility] September 20- after presenting with dyspnea. He was felt to have acute and chronic respiratory failure. He was stabilized and admitted [facility] swing bed for ongoing therapy. Initial orders were written by the discharging physicians at [facility]. I saw him September 27 and performed the swing bed history and physical. He was continued on Lanoxin, Lasix and Lopressor at existing doses. I increased Imdur to 60 mg daily. Amiodarone was discontinued since it was ineffective in controlling atrial fibrillation. Lopressor and Lanoxin were continued for rate control. Xarelto was given for anticoagulation. WBC normalized with resolution of the left shift by October 05. There were no new problems and on October 07 he felt stable for discharge home. He will follow with his PCP Dr. Rabago within 1 week. He stated he had BiPAP and oxygen for use at home. Home health services will be ordered. - Time Spent with Patient Total time spent providing and/or coordinating discharge services: - Constitutional Vitals: Temp Pulse Resp BP Pulse Ox 97.5 F L 77 20 92/58 95 10/07/16 07:53 10/07/16 07:53 10/07/16 07:53 10/07/16 07:53 10/07/16 07:53
--- NOTE | 2016-10-07 09:40 | Physician Discharge Referral ---
Home Health/Hosp Referral Info Transfer to: Home Health Attending Provider: Gio Provider in Charge Post Discharge: PCP Michael) - Diagnosis (1) Congestive heart failure Priority: Primary Status: Acute (2) Atrial fibrillation Priority: Secondary Status: Chronic (3) Neutrophilic leukocytosis Priority: Secondary Status: Resolved (4) COPD (chronic obstructive pulmonary disease) Priority: Secondary Status: Chronic (5) Anemia Priority: Secondary Status: Acute - Respiratory Orders Oxygen / L per min (O2 at 2 L/m nasal cannula /. Bleed oxygen into BiPAP at bedtime) Smoking Cessation: Smoking cessation has been advised. For more information, call the [place] Tobacco Quit Line at 7-792-GPZE-NOW. - Diet/Nutrition Diet/Nutrition Orders: Regular - Activity Activity Orders: Walker - Services Needed Following services are medically necessary services: Nursing, Home Health Aide, Physical Therapy, Occupational Therapy - Transfer Medications Prescriptions: Ascorbic Acid [Vitamin C] 500 mg PO DAILY #30 tablet.er Ferrous Sulfate 325 mg PO DAILY #30 tablet.dr Isosorbide MONOnitrate (24 HR) [Imdur] 60 mg PO DAILY #30 tab.er.24h Home Medications: Levothyroxine [Synthroid] 125 mcg PO 0630 07/13/16 [History] Furosemide [Lasix] 40 mg PO DAILY 09/16/16 [History] Ropinirole [Requip] 0.25 mg PO HS 09/16/16 [History] Digoxin [Lanoxin] 0.25 mg PO DAILY #30 tablet 09/19/16 [Rx] Folic Acid 1 mg PO DAILY #30 tablet 09/19/16 [Rx] Metoprolol [Lopressor] 25 mg PO BID #60 tablet 09/19/16 [Rx] Rivaroxaban [Xarelto] 20 mg PO DAILY #30 tablet 09/19/16 [Rx] Atorvastatin [Lipitor] 40 mg PO HS 09/20/16 [History] Docusate [Colace] 100 mg PO DAILY PRN 09/20/16 [History] Fluticasone/Vilanterol [Breo Ellipta 100-25 Mcg INH] 1 each IH DAILY 09/20/16 [ History] Ascorbic Acid [Vitamin C] 500 mg PO DAILY #30 tablet.er 10/07/16 [Rx] Citalopram Hydrobromide [Celexa] 20 mg PO DAILY #0 10/07/16 [Rx] Ferrous Sulfate 325 mg PO DAILY #30 tablet.dr 10/07/16 [Rx] Isosorbide MONOnitrate (24 HR) [Imdur] 60 mg PO DAILY #30 tab.er.24h 10/07/16 [ Rx] Allergies/Adverse Reactions: Allergies No Known Allergies Allergy (Verified 09/20/16 13:30) Certification: Further, I certify that my clinical findings support that this patient is homebound (i.e. absences from home require considerable and taxing effort and are for medical reasons or [employer] services or infrequently or short duration when for other reasons) because: Homebound Reason: Leaving home requires considerable and taxing effort due to condition (CHF, COPD) Attestation: My signature below is to certify that this patient is under my care and that I, or nurse practitioner, or a physician's employee relations assistant working with me, has a face-to -face encounter with this patient.
[2016-10-07 15:52] VITALS: BP 100/60
[2016-10-07] MEDS: *HR* Rivaroxaban 10 MG TABLET PO SCH (16:40)
== END 2016-10-07 17:05 | disposition home health service (06) | DRG 292 ==
LOC: INPPIK 09-27 10:09
PROVIDERS: ADMIT Internal Medicine; ATTEND Internal Medicine

== ENCOUNTER 2016-10-10 14:05 | Inpatient (IN) ==
--- NOTE | 2016-10-10 14:15 | Emergency Department Note ---
Disposition Clinical Impression: Anemia Qualifiers: Anemia type: unspecified type Qualified Code(s): D64.9 - Anemia, unspecified Dyspnea Qualifiers: Dyspnea type: shortness of breath Qualified Code(s): R06.02 - Shortness of breath Disposition: Admitted As Inpatient Condition: Fair Referrals: Sara Rabago MD [Primary Care Provider] - Forms: ED Satisfaction Letter SOB HPI - General Chief Complaint: ED Shortness of Breath/Dyspnea Stated Complaint: Shortness of breath, 10# wt gain Source: patient, EMS Mode of arrival: EMS Limitations: no limitations Nursing Notes Reviewed: Yes Vital Signs Reviewed: Yes - History of Present Illness 66 year old with sob 10# weight gain, no lasix did not fill prescription C called monday d/c from hospital for CHF no fever denies pain legs swelling Pt Subjective Complaint: shortness of breath Onset (ago): day(s) Context: medication noncompliance (out of lasix) Severity: severe Consistency/Duration: gradually worsening Worsens with: exertion - Related Data Home Medications Medication Instructions Recorded Confirmed Levothyroxine [Synthroid] 125 mcg PO 0630 07/13/16 10/10/16 Furosemide [Lasix] 40 mg PO DAILY 09/16/16 10/10/16 Ropinirole [Requip] 0.25 mg PO HS 09/16/16 10/10/16 Atorvastatin [Lipitor] 40 mg PO HS 09/20/16 10/10/16 Docusate [Colace] 100 mg PO DAILY PRN 09/20/16 10/10/16 Fluticasone/Vilanterol [Breo 1 each IH DAILY 09/20/16 10/10/16 Ellipta 100-25 Mcg INH] Previous Rx's Medication Instructions Recorded Digoxin [Lanoxin] 0.25 mg PO DAILY #30 tablet 09/19/16 Folic Acid 1 mg PO DAILY #30 tablet 09/19/16 Metoprolol [Lopressor] 25 mg PO BID #60 tablet 09/19/16 Rivaroxaban [Xarelto] 20 mg PO DAILY #30 tablet 09/19/16 Ascorbic Acid [Vitamin C] 500 mg PO DAILY #30 tablet.er 10/07/16 Citalopram Hydrobromide [Celexa] 20 mg PO DAILY #0 10/07/16 Ferrous Sulfate 325 mg PO DAILY #30 tablet.dr 10/07/16 Isosorbide MONOnitrate (24 HR) 60 mg PO DAILY #30 tab.er.24h 10/07/16 [Imdur] Allergies Allergy/AdvReac Type Severity Reaction Status Date / Time No Known Allergies Allergy Verified 10/10/16 14:07 All systems ED: reviewed and negative except as stated. Constitutional: Reports: weakness Respiratory: Reports: cough, dyspnea Gastrointestinal: Reports: as per HPI Genitourinary: Reports: as per HPI Musculoskeletal: Reports: as per HPI Integumentary: Reports: as per HPI Neurological: Reports: as per HPI Psychiatric: Reports: as per HPI Endocrine: Reports: as per HPI Hematological/Lymphatic: Reports: as per HPI Past Medical History - Past Medical History Attestation: Yes The following information was validated with the patient. Medical history: Reports: atrial fibrillation, COPD, coronary artery disease, CVA, DVT, dementia, hyperlipidemia, hypertension, renal disease, thyroid disease , other Surgical history: Reports: coronary bypass (CABG), IVC Filter Psychiatric history: Reports: anxiety, depression - Social History Smoking Status: Former smoker Smokeless Tobacco Status: No Alcohol use: Reports: none Drug use: Reports: none Physical Exam - General Limitations: physical limitation General appearance: alert, in distress - Head Head exam: atraumatic - Eye Eye exam: Present: normal appearance - Expanded Respiratory Exam Location: wheezes: Left, Right, decreased breath sounds: Right, Left - Cardiovascular Cardiovascular exam: Present: irregular rhythm - Abdominal Exam Abdominal exam: Present: soft, Non-Tender - Extremities Exam Extremities exam: Present: tenderness, pedal edema, joint swelling - Neurological Exam Neurological exam: Present: alert - Psychiatric Psychiatric exam: Present: depressed - Skin Skin exam: Present: warm, dry Course Course Narrative: patient seen and examined mild resp distress sob anemia dr. Powers accept Vital Signs Temperature 98 F 10/10/16 14:09 Pulse Rate 125 10/10/16 14:09 Respiratory Rate 20 10/10/16 14:09 O2 Sat by Pulse Oximetry 93 10/10/16 14:09 Temperature 98 F 10/10/16 16:03 Pulse Rate 99 10/10/16 16:42 Respiratory Rate 20 10/10/16 16:42 Blood Pressure 95/55 10/10/16 16:42 O2 Sat by Pulse Oximetry 95 10/10/16 16:42 Oxygen Delivery Oxygen Delivery Nasal Cannula Shortness of Breath/Dyspnea - Differential Diagnosis Likely: acute exacerbation of chronic obstructive airways disease, congestive heart failure, pneumonia, asthma with exacerbation, pulmonary embolism, pneumothorax, arrhythmia - Medical Records Medical records reviewed: Yes I reviewed the patient's medical records. - Lab Data Lab results reviewed: Yes I reviewed the patient's lab results. Result diagrams: 10/10/16 14:50 10/10/16 14:50 Lab Results 10/10/16 10/10/16 10/10/16 Range/Units 14:26 14:50 14:50 WBC 10.9 (4.3-11.1) K/mcL RBC 2.62 L (4.19-5.50) M/mcL Hgb 7.6 L (12.9-16.9) g/dL Hct 27.0 L (37.5-50.1) % MCV 103.1 H (83.0-100.0) fL MCH 29.0 (28.0-33.3) pg MCHC 28.1 L (31.6-35.5) g/dL RDW 18.0 H (11.5-14.5) % Plt Count 180 (140-400) K/mcL MPV 9.9 (9.4-12.4) fL Immature Gran % 0.6 (0-4) % Seg Neutrophils % 78.0 % Lymphocytes % 9.4 % Monocytes % 9.8 % Eosinophils % 1.8 % Basophils % 0.4 % Neutrophils # 8.5 (1.6-8.9) K/mcL Lymphocytes # 1.0 (0.6-4.6) K/mcL Monocytes # 1.1 (0.0-1.3) K/mcL Eosinophils # 0.2 (0.0-0.6) K/mcL Basophils # 0.0 (0.0-0.2) K/mcL Platelet Estimate Normal (Normal) Polychromasia 1+ A (Not Present) Hypochromasia Present A (Not Present) Anisocytosis 1+ A (Not Present) ABG pH 7.36 (7.32-7.45) pH Units ABG pCO2 64 H (35-45) mmHg ABG pO2 70 L (85-104) mmHg ABG HCO3 36.1 H (21-27) mEQ/L ABG Total CO2 38.1 H (20-26) mEq/L ABG O2 Saturation 92 L (95-98) % ABG Base Excess 10.7 H (-2.0 to 3.0) mEq/L VBG Lactic Acid (0.5-2.2) mmol/L Respiration Rate 20 Liter Flow 4 L/MIN Blood Gas Modality NC Inspired O2 36 % Sodium 144 (136-145) mEq/L Potassium 4.1 (3.5-4.5) mEq/L Chloride 101 (98-109) mEq/L Carbon Dioxide 35 H (19-29) mEq/L BUN 19 (8-26) mg/dL Creatinine 0.68 L (0.72-1.25) mg/dL Est GFR ( Amer) > 60 (> 60) Est GFR (Non-Af Amer) > 60 (> 60) BUN/Creatinine Ratio 28 H (6-26) Glucose 100 H (70-99) mg/dL Calculated Osmolality 300 (280-300) Calcium 8.1 L (8.6-10.8) mg/dL Total Bilirubin 0.6 (0.2-1.2) mg/dL AST 15 (5-34) Units/L ALT 23 (0-55) Units/L Alkaline Phosphatase 84 (38-126) Units/L B-Natriuretic Peptide (0-100) pg/mL Serum Total Protein 5.1 L (6.0-8.3) g/dL Albumin 2.6 L (3.5-5.0) g/dL Globulin 2.5 (2.4-3.5) g/dL Albumin/Globulin Ratio 1.0 L (1.1-2.2) Urine Color (Yellow) Urine Clarity (Clear) Urine pH (5.0-8.0) pH Units Ur Specific Mullins (1.010-1.025) Urine Protein (Neg-Trace) mg/dL Urine Glucose (UA) (Normal) mg/dL Urine Ketones (Negative) mg/dL Urine Blood (Negative) Urine Nitrite (Negative) Urine Bilirubin (Negative) Urine Urobilinogen (Normal) mg/dL Ur Leukocyte Esterase (Negative) Urine Microscopic WBC (0-3) per hpf Ur Squamous Epith Cells (None-Few) per lpf Amorphous Sediment (Few) Hyaline Casts (None-Few) per lpf Urine Mucus (Few) Ur Culture Indicated? (NO) Blood Type Antibody Screen 10/10/16 10/10/16 10/10/16 Range/Units 14:50 15:43 15:43 WBC (4.3-11.1) K/mcL RBC (4.19-5.50) M/mcL Hgb (12.9-16.9) g/dL Hct (37.5-50.1) % MCV (83.0-100.0) fL MCH (28.0-33.3) pg MCHC (31.6-35.5) g/dL RDW (11.5-14.5) % Plt Count (140-400) K/mcL MPV (9.4-12.4) fL Immature Gran % (0-4) % Seg Neutrophils % % Lymphocytes % % Monocytes % % Eosinophils % % Basophils % % Neutrophils # (1.6-8.9) K/mcL Lymphocytes # (0.6-4.6) K/mcL Monocytes # (0.0-1.3) K/mcL Eosinophils # (0.0-0.6) K/mcL Basophils # (0.0-0.2) K/mcL Platelet Estimate (Normal) Polychromasia (Not Present) Hypochromasia (Not Present) Anisocytosis (Not Present) ABG pH (7.32-7.45) pH Units ABG pCO2 (35-45) mmHg ABG pO2 (85-104) mmHg ABG HCO3 (21-27) mEQ/L ABG Total CO2 (20-26) mEq/L ABG O2 Saturation (95-98) % ABG Base Excess (-2.0 to 3.0) mEq/L VBG Lactic Acid 1.8 (0.5-2.2) mmol/L Respiration Rate Liter Flow L/MIN Blood Gas Modality Inspired O2 % Sodium (136-145) mEq/L Potassium (3.5-4.5) mEq/L Chloride (98-109) mEq/L Carbon Dioxide (19-29) mEq/L BUN (8-26) mg/dL Creatinine (0.72-1.25) mg/dL Est GFR ( Amer) (> 60) Est GFR (Non-Af Amer) (> 60) BUN/Creatinine Ratio (6-26) Glucose (70-99) mg/dL Calculated Osmolality (280-300) Calcium (8.6-10.8) mg/dL Total Bilirubin (0.2-1.2) mg/dL AST (5-34) Units/L ALT (0-55) Units/L Alkaline Phosphatase (38-126) Units/L B-Natriuretic Peptide 394 H (0-100) pg/mL Serum Total Protein (6.0-8.3) g/dL Albumin (3.5-5.0) g/dL Globulin (2.4-3.5) g/dL Albumin/Globulin Ratio (1.1-2.2) Urine Color (Yellow) Urine Clarity (Clear) Urine pH (5.0-8.0) pH Units Ur Specific Mullins (1.010-1.025) Urine Protein (Neg-Trace) mg/dL Urine Glucose (UA) (Normal) mg/dL Urine Ketones (Negative) mg/dL Urine Blood (Negative) Urine Nitrite (Negative) Urine Bilirubin (Negative) Urine Urobilinogen (Normal) mg/dL Ur Leukocyte Esterase (Negative) Urine Microscopic WBC (0-3) per hpf Ur Squamous Epith Cells (None-Few) per lpf Amorphous Sediment (Few) Hyaline Casts (None-Few) per lpf Urine Mucus (Few) Ur Culture Indicated? (NO) Blood Type B NEGATIVE Antibody Screen NEGATIVE 10/10/16 Range/Units 15:57 WBC (4.3-11.1) K/mcL RBC (4.19-5.50) M/mcL Hgb (12.9-16.9) g/dL Hct (37.5-50.1) % MCV (83.0-100.0) fL MCH (28.0-33.3) pg MCHC (31.6-35.5) g/dL RDW (11.5-14.5) % Plt Count (140-400) K/mcL MPV (9.4-12.4) fL Immature Gran % (0-4) % Seg Neutrophils % % Lymphocytes % % Monocytes % % Eosinophils % % Basophils % % Neutrophils # (1.6-8.9) K/mcL Lymphocytes # (0.6-4.6) K/mcL Monocytes # (0.0-1.3) K/mcL Eosinophils # (0.0-0.6) K/mcL Basophils # (0.0-0.2) K/mcL Platelet Estimate (Normal) Polychromasia (Not Present) Hypochromasia (Not Present) Anisocytosis (Not Present) ABG pH (7.32-7.45) pH Units ABG pCO2 (35-45) mmHg ABG pO2 (85-104) mmHg ABG HCO3 (21-27) mEQ/L ABG Total CO2 (20-26) mEq/L ABG O2 Saturation (95-98) % ABG Base Excess (-2.0 to 3.0) mEq/L VBG Lactic Acid (0.5-2.2) mmol/L Respiration Rate Liter Flow L/MIN Blood Gas Modality Inspired O2 % Sodium (136-145) mEq/L Potassium (3.5-4.5) mEq/L Chloride (98-109) mEq/L Carbon Dioxide (19-29) mEq/L BUN (8-26) mg/dL Creatinine (0.72-1.25) mg/dL Est GFR ( Amer) (> 60) Est GFR (Non-Af Amer) (> 60) BUN/Creatinine Ratio (6-26) Glucose (70-99) mg/dL Calculated Osmolality (280-300) Calcium (8.6-10.8) mg/dL Total Bilirubin (0.2-1.2) mg/dL AST (5-34) Units/L ALT (0-55) Units/L Alkaline Phosphatase (38-126) Units/L B-Natriuretic Peptide (0-100) pg/mL Serum Total Protein (6.0-8.3) g/dL Albumin (3.5-5.0) g/dL Globulin (2.4-3.5) g/dL Albumin/Globulin Ratio (1.1-2.2) Urine Color Dark Yellow (Yellow) Urine Clarity Clear (Clear) Urine pH 6.0 (5.0-8.0) pH Units Ur Specific Mullins 1.020 (1.010-1.025) Urine Protein Negative (Neg-Trace) mg/dL Urine Glucose (UA) Normal (Normal) mg/dL Urine Ketones 15 H (Negative) mg/dL Urine Blood Negative (Negative) Urine Nitrite Negative (Negative) Urine Bilirubin Negative (Negative) Urine Urobilinogen 4.0 H (Normal) mg/dL Ur Leukocyte Esterase Trace H (Negative) Urine Microscopic WBC 3-5 H (0-3) per hpf Ur Squamous Epith Cells Few (None-Few) per lpf Amorphous Sediment Few (Few) Hyaline Casts Few (None-Few) per lpf Urine Mucus Few (Few) Ur Culture Indicated? YES A (NO) Blood Type Antibody Screen - Radiology Data Radiology results reviewed: Yes I reviewed the patient's radiology results. - EKG Data EKG attestation: Yes I reviewed and interpreted this EKG. Rate: Reports: tachycardia Rhythm: Reports: A.Fib
[2016-10-10] MEDS ORDERED: Furosemide 40 MG/4 ML VIAL IVP ONE (14:16)
[2016-10-10 15:01] LABS: Basophils % 0.4 %; Eosinophils # 0.2 K/mcL (0.0-0.6); Eosinophils % 1.8 %; Hemoglobin 7.6 g/dL (12.9-16.9); Immature Granulocytes % 0.6 % (0-4); Lymphocytes % 9.4 %; Mean Corpuscular HGB Conc 28.1 g/dL (31.6-35.5); Mean Corpuscular Volume 103.1 fL (83.0-100.0); Mean Platelet Volume 9.9 fL (9.4-12.4); Monocytes # 1.1 K/mcL (0.0-1.3); Monocytes % 9.8 %; Neutrophils # 8.5 K/mcL (1.6-8.9); Platelet Count 180 K/mcL (140-400); Red Blood Count 2.62 M/mcL (4.19-5.50)
[2016-10-10 15:05] LABS: ABG HCO3 36.1 mEQ/L (21-27); ABG PCO2 64 mmHg (35-45); ABG PH 7.36 pH Units (7.32-7.45); ABG PO2 70 mmHg (85-104); ABG TCO2 38.1 mEq/L (20-26)
[2016-10-10 15:06] LABS: ABG Base Excess 10.7 mEq/L (-2.0 to 3.0); ABG Oxygen Saturation 92 % (95-98); Blood Gas FiO2 36 %; Blood Gas Liter Flow 4 L/MIN; Blood Gas Respiration Rate 20
[2016-10-10 15:22] LABS: Alanine Aminotransferase 23 Units/L (0-55); Albumin 2.6 g/dL (3.5-5.0); Alkaline Phosphatase 84 Units/L (38-126); Aspartate Amino Transferase 15 Units/L (5-34); BUN/Creatinine Ratio 28 (6-26); Bilirubin,Total 0.6 mg/dL (0.2-1.2); Blood Urea Nitrogen 19 mg/dL (8-26); Calcium 8.1 mg/dL (8.6-10.8); Carbon Dioxide 35 mEq/L (19-29); Chloride 101 mEq/L (98-109); Globulin 2.5 g/dL (2.4-3.5); Glucose 100 mg/dL (70-99); Osmolality,Calculated 300 (280-300); Potassium 4.1 mEq/L (3.5-4.5); Sodium 144 mEq/L (136-145); Total Protein 5.1 g/dL (6.0-8.3); eGFR For African Americans > 60 (> 60); eGFR For Non-African Americans > 60 (> 60)
[2016-10-10] MEDS ORDERED: Piperacillin/Tazobactam 3.375 GM in D5% in Water (Mini-Bag+) 100 ML IVPB ONE (15:50)
[2016-10-10 16:06] LABS: Bilirubin,Urine Negative (Negative); Blood,Urine Negative (Negative); Clarity,Urine Clear (Clear); Glucose,Urine (UA) Normal (Normal); Ketones,Urine 15 mg/dL (Negative); Leukocyte Esterase,Urine Trace (Negative); Nitrite,Urine Negative (Negative); Protein,Urine Negative (Neg-Trace)
[2016-10-10 16:08] LABS: Color,Urine Dark Yellow (Yellow)
[2016-10-10 16:13] LABS: Anisocytosis 1+ (Not Present); Hypochromasia Present (Not Present); Platelet Estimate Normal (Normal); Polychromasia 1+ (Not Present)
[2016-10-10 16:17] LABS: Amorphous Sediment,Urine Few (Few); Hyaline Casts,Urine Few per lpf (None-Few); Mucus,Urine Few (Few); Squamous Epithelial Cell,Urine Few per lpf (None-Few)
[2016-10-10] MEDS ORDERED: Ondansetron ODT 4 MG TAB.RAPDIS SL PRN (17:14)
[2016-10-10] MEDS ORDERED: Acetaminophen 325 MG TABLET PO PRN (17:14)
[2016-10-10] MEDS ORDERED: Naloxone 0.4 MG/ML INJ IVP PRN (17:14)
[2016-10-10] MEDS ORDERED: Lidocaine/EPI 1:100k 1% 20 ML VIAL INFILT ONE ×2 (17:32→17:45)
[2016-10-10] MEDS ORDERED: Lidocaine/EPI 1:200k 1% PF 10 ML VIAL INFILT ONE (17:32)
[2016-10-11 07:16] LABS: BUN/Creatinine Ratio 27 (6-26); Blood Urea Nitrogen 18 mg/dL (8-26); Calcium 8.2 mg/dL (8.6-10.8); Carbon Dioxide 35 mEq/L (19-29); Chloride 102 mEq/L (98-109); Glucose 133 mg/dL (70-99); Osmolality,Calculated 304 (280-300); Potassium 4.4 mEq/L (3.5-4.5); Sodium 145 mEq/L (136-145); eGFR For African Americans > 60 (> 60); eGFR For Non-African Americans > 60 (> 60)
[2016-10-11 08:47] LABS: Hypochromasia Present (Not Present)
[2016-10-11 08:56] LABS: Platelet Estimate Normal (Normal)
[2016-10-11 08:59] LABS: Basophils % 0.1 %; Hematocrit 25.7 % (37.5-50.1); Hemoglobin 7.4 g/dL (12.9-16.9); Immature Granulocytes % 0.3 % (0-4); Lymphocytes # 0.7 K/mcL (0.6-4.6); Lymphocytes % 8.2 %; Mean Corpuscular HGB Conc 28.8 g/dL (31.6-35.5); Mean Corpuscular Hemoglobin 29.1 pg (28.0-33.3); Mean Corpuscular Volume 101.2 fL (83.0-100.0); Mean Platelet Volume 10.6 fL (9.4-12.4); Monocytes # 0.3 K/mcL (0.0-1.3); Monocytes % 2.8 %; Neutrophils # 7.8 K/mcL (1.6-8.9); Platelet Count 185 K/mcL (140-400); Red Blood Count 2.54 M/mcL (4.19-5.50); Segmented Neutrophils % 88.6 %
[2016-10-11] MEDS: Folic Acid 1 MG TABLET PO SCH (09:54)
[2016-10-11] MEDS: (Fluticasone/Vilanterol [Breo Ellipta 100-25 Mcg Inh] IH SCH (09:55)
[2016-10-11] MEDS: *HR* Digoxin 0.25 MG TABLET PO SCH (09:55)
--- NOTE | 2016-10-11 15:00 | Internal Med History&Physical ---
Date of Encounter: 10/11/16 Time of Encounter: 14:35 Assessment and Plan (1) Dyspnea Current visit: No Status: Acute Suspect multifactorial in origin. He was given Zosyn in emergency room for possible pneumonia. Continue with antibiotics and lactobacillus for now. Qualifiers: Dyspnea type: shortness of breath Qualified Code(s): R06.02 - Shortness of breath (2) Anemia Current visit: No Status: Acute We will discontinue Xarelto because of worsening anemia. We will guaiac stool. Monitor CBCs. Continue ferrous sulfate with vitamin C. Qualifiers: Anemia type: iron deficiency Iron deficiency anemia type: unspecified iron deficiency Qualified Code(s): D50.9 - Iron deficiency anemia, unspecified (3) Hypothyroidism Current visit: No Status: Chronic Continue Synthroid. TSH was minimally elevated 5.348 on 09/18/2016. Qualifiers: Hypothyroidism type: unspecified Qualified Code(s): E03.9 - Hypothyroidism , unspecified (4) Neutrophilic leukocytosis Current visit: No Status: Resolved We will recheck CBC in a.m. We will start antibiotics for possible pneumonia as per above. (5) Congestive heart failure Current visit: No Status: Acute Continue Lanoxin, Lopressor, Imdur, and diuretics. Qualifiers: Congestive heart failure type: unspecified congestive heart failure type Congestive heart failure chronicity: acute on chronic Qualified Code(s): I50.9 - Heart failure, unspecified (6) Atrial fibrillation Current visit: No Status: Chronic Will discontinue Xarelto because of worsening anemia. Continue Lopressor and Lanoxin for rate control. Qualifiers: Atrial fibrillation type: chronic Qualified Code(s): I48.2 - Chronic atrial fibrillation Internal Medicine - H&P: HPI Chief complaint: Dyspnea Admitted From: Home Plans for Post Hospital Care: Home History of present illness: Mr. Abdullahi is a 66 year old male who came to emergency room complaining of dyspnea. He was in [facility] swing bed September 27- following hospitalization at [facility] September 20- for dyspnea. He was hospitalized at [facility] September 16-September 19 for dyspnea. he denied other symptoms in emergency room other than dyspnea. He is unable to give an adequate additional history stating he has had a stroke in the past and his memory is poor. He denies chest pain melena or hematochezia. He was admitted to [facility] floor for ongoing care needs. His respiratory history is significant for having smoked since age 10 up to 2-1/ 2 packs per day. He states he wears oxygen at home 09/01 at 4 L/m. He has a diagnosis of COPD. He reports a diagnosis of ZIGGY and wears BiPAP at home. Past Med Surg Social Fam HX - Past Medical History Medical history: atrial fibrillation, COPD, coronary artery disease, CVA, DVT, dementia, hyperlipidemia, hypertension, renal disease, thyroid disease, other Psychiatric history: anxiety, depression - Past Surgical History Surgical History: coronary bypass (CABG), IVC Filter - Social History Smoking Status: Current every day smoker Smokeless Tobacco Status: No Alcohol use: none Drug use: none - Family History Mother Living Status: Hx Family Cardiac Disorders: Yes ([place]) Sister Living Status: Hx Family Cardiac Disorders: Yes ([place]) Father Living Status: Internal Medicine - H&P: Meds Levothyroxine [Synthroid] 125 mcg PO 0630 07/13/16 [History] Furosemide [Lasix] 40 mg PO DAILY 09/16/16 [History] Ropinirole [Requip] 0.25 mg PO HS 09/16/16 [History] Digoxin [Lanoxin] 0.25 mg PO DAILY #30 tablet 09/19/16 [Rx] Folic Acid 1 mg PO DAILY #30 tablet 09/19/16 [Rx] Metoprolol [Lopressor] 25 mg PO BID #60 tablet 09/19/16 [Rx] Rivaroxaban [Xarelto] 20 mg PO DAILY #30 tablet 09/19/16 [Rx] Atorvastatin [Lipitor] 40 mg PO HS 09/20/16 [History] Docusate [Colace] 100 mg PO DAILY PRN 09/20/16 [History] Fluticasone/Vilanterol [Breo Ellipta 100-25 Mcg INH] 1 each IH DAILY 09/20/16 [ History] Ascorbic Acid [Vitamin C] 500 mg PO DAILY #30 tablet.er 10/07/16 [Rx] Citalopram Hydrobromide [Celexa] 20 mg PO DAILY #0 10/07/16 [Rx] Ferrous Sulfate 325 mg PO DAILY #30 tablet. 10/07/16 [Rx] Isosorbide MONOnitrate (24 HR) [Imdur] 60 mg PO DAILY #30 tab.er.24h 10/07/16 [ Rx] Allergies No Known Allergies Allergy (Verified 10/10/16 14:07) All Systems PM: A 10-system review of systems was performed and is negative for pertinent findings except as documented above in the HPI. Review of systems: Review of systems from his recent [facility] stay were reviewed and revised as below. General: He states his weight has been stable the past few months Cardiovascular: He has hypertension and known ASHD with possible remote [place]. He states he had 4 vessel CABG approximately 2004. He had DVT with IVC filter placed several years ago. He has diagnoses of heart failure but does not know details. An echocardiogram was done at [facility] 09/21/2016 which showed poor quality imaging. The LVEF appeared to be mildly to moderately reduced. There was LAE at 4.6 cm. The interventricular septum and posterior wall thickness measurements were elevated at 1.30 cm. He has chronic atrial fibrillation. Respiratory: As per history of present illness GI: He denies disorders of his liver gallbladder or exocrine pancreas. He denies melena hematochezia or abdominal pain. 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 He uses a cane or walker to ambulate at home. He denies seizures. Endocrine: He has hyperlipidemia and hypothyroidism but denies diabetes. TSH was minimally elevated at 5.348 on 09/18/2016. Hematology/oncology: He was found to have anemia during a recent [facility] stay with anemia testing showed iron 18, transferrin saturation 4%, transferrin 295, ferritin 88, folate 4.5, B12 333. He was started on ferrous sulfate with vitamin C and folic acid supplements. Psychiatric: He has anxiety but denies depression or other mental health issues Musk skeletal: He has DJD but no known gout or other bone joint or muscle disorders. - Constitutional Vitals: Temp Pulse Resp BP Pulse Ox 97.8 F 107 16 101/69 97 10/11/16 11:00 10/11/16 11:00 10/11/16 11:00 10/11/16 11:00 10/11/16 11:00 Exam: Gen.: He is a well-developed well-nourished male sitting in a chair who appears in no acute distress at present time HEENT: Head is atraumatic and normal cephalic. Eyes: EOMI. There is no scleral icterus. Mouth: Mucosa is moist. Neck: Supple and nontender. There is no thyromegaly or adenopathy noted. Heart: Irregularly irregular. No murmurs or gallops are heard Lungs: No wheezes or crackles are heard. Abdomen: He has a large abdomen. It is nontender to palpation. Exam is limited because he is in the seated position. Extremities: He has ecchymoses of various stages and sizes on his arms and legs. There is 2-3+ edema of the dorsum of feet and lower anterior shins bilaterally. Dorsalis pedis and posterior tibial pulses are nonpalpable due to the edema. Neurologic: Mental status: He is talkative and a fair historian. He has memory impairment. He is hard of hearing. Cranial nerves: Smile is symmetric. Forehead wrinkles bilaterally. Tongue protrudes midline. EOMI. He is hard of hearing. Motor: There is no pronator drift. Cerebellar: Finger to nose is intact bilaterally. Skin: Warm and dry. He has significant ecchymosis on his arms and legs as per above. Internal Med - H&P Results - Labs CBC & Chem 7: 10/11/16 05:36 10/11/16 05:36 Labs: Short CBC 10/11/16 Range/Units 05:36 WBC 8.8 (4.3-11.1) K/mcL Hgb 7.4 L (12.9-16.9) g/dL Hct 25.7 L (37.5-50.1) % Plt Count 185 (140-400) K/mcL Neutrophils # 7.8 (1.6-8.9) K/mcL BMP 10/11/16 05:36 Sodium 145 Potassium 4.4 Chloride 102 Carbon Dioxide 35 H BUN 18 Creatinine 0.66 L Glucose 133 H Calcium 8.2 L Cardiac Enzymes 10/10/16 10/10/16 10/11/16 Range/Units 18:45 23:48 05:36 Troponin I 0.03 0.03 0.02 (0-0.03) ng/mL
--- NOTE | 2016-10-11 16:53 | Electrocardiograph Report ---
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
[2016-10-11] MEDS: Piperacillin/Tazobactam 3.375 GM in D5% in Water (Mini-Bag+) 100 ML IVPB SCH (19:49)
[2016-10-11] MEDS: Bumetanide 1 MG/4 ML VIAL IVP SCH (19:49)
[2016-10-11] MEDS: Isosorbide MONOnitrate (24 HR) 60 MG TAB.ER.24H PO SCH (19:49)
[2016-10-11] MEDS: Lactobacillus 1 EACH CAP.SPRINK PO SCH (20:44)
[2016-10-12] MEDS: Piperacillin/Tazobactam 3.375 GM in D5% in Water (Mini-Bag+) 100 ML IVPB SCH ×4 (01:02→23:49)
[2016-10-12 05:18] LABS: Basophils # 0.1 K/mcL (0.0-0.2); Basophils % 0.6 %; Eosinophils # 0.2 K/mcL (0.0-0.6); Eosinophils % 1.4 %; Hemoglobin 7.4 g/dL (12.9-16.9); Immature Granulocytes % 0.5 % (0-4); Lymphocytes # 1.8 K/mcL (0.6-4.6); Lymphocytes % 14.5 %; Mean Corpuscular HGB Conc 28.5 g/dL (31.6-35.5); Mean Corpuscular Hemoglobin 29.5 pg (28.0-33.3); Mean Corpuscular Volume 103.6 fL (83.0-100.0); Monocytes # 1.2 K/mcL (0.0-1.3); Monocytes % 9.8 %; Neutrophils # 8.9 K/mcL (1.6-8.9); Platelet Count 196 K/mcL (140-400); Red Blood Count 2.51 M/mcL (4.19-5.50); Red Cell Distribution Width 18.6 % (11.5-14.5); Segmented Neutrophils % 73.2 %
[2016-10-12 06:29] LABS: Anisocytosis 1+ (Not Present); Hypochromasia Present (Not Present); Platelet Estimate Normal (Normal)
[2016-10-12] MEDS ORDERED: Ascorbic Acid 500 MG TABLET PO SCH (06:30)
[2016-10-12] MEDS: Lactobacillus 1 EACH CAP.SPRINK PO SCH ×2 (08:02→20:20)
[2016-10-12] MEDS: Folic Acid 1 MG TABLET PO SCH (08:02)
[2016-10-12] MEDS: Isosorbide MONOnitrate (24 HR) 60 MG TAB.ER.24H PO SCH (08:03)
[2016-10-12] MEDS: *HR* Digoxin 0.25 MG TABLET PO SCH (08:04)
[2016-10-12] MEDS: Bumetanide 1 MG/4 ML VIAL IVP SCH ×2 (08:13→16:12)
[2016-10-12] MEDS: (Fluticasone/Vilanterol [Breo Ellipta 100-25 Mcg Inh] IH SCH (08:15)
--- NOTE | 2016-10-12 10:24 | Internal Med Progress Note ---
Date of Encounter: 10/12/16 Time of Encounter: 10:15 - Assessment and plan (1) Dyspnea Current Visit: No Status: Acute Assessment and plan: October 12. Improved. Continue antibiotics and medicine for heart failure. Qualifiers: Dyspnea type: shortness of breath Qualified Code(s): R06.02 - Shortness of breath (2) Anemia Current Visit: No Status: Acute Assessment and plan: October 12. Remain off Xarelto and continue ferrous sulfate with vitamin C. Recheck labs in a.m. Qualifiers: Anemia type: iron deficiency Iron deficiency anemia type: unspecified iron deficiency Qualified Code(s): D50.9 - Iron deficiency anemia, unspecified (3) Hypothyroidism Current Visit: No Status: Chronic Assessment and plan: October 12. TSH was 5.348 on 09/18/2016. Continue Synthroid Qualifiers: Hypothyroidism type: unspecified Qualified Code(s): E03.9 - Hypothyroidism , unspecified (4) Neutrophilic leukocytosis Current Visit: No Status: Resolved Assessment and plan: October 12. Continue Zosyn and lactobacillus. Recheck labs in a.m. (5) Congestive heart failure Current Visit: No Status: Acute Assessment and plan: October 12. Continue Lanoxin, Lopressor, Imdur, and IV Bumex Qualifiers: Congestive heart failure type: unspecified congestive heart failure type Congestive heart failure chronicity: acute on chronic Qualified Code(s): I50.9 - Heart failure, unspecified (6) Atrial fibrillation Current Visit: No Status: Chronic Assessment and plan: October 12. Continue Lopressor and Lanoxin for rate control. Remain off Xarelto because of anemia Qualifiers: Atrial fibrillation type: chronic Qualified Code(s): I48.2 - Chronic atrial fibrillation - Subjective Interval history: October 12. He has no new complaints and he states his dyspnea has improved. - Constitutional Vitals: Temp Pulse Resp BP Pulse Ox 97.7 F 99 18 91/56 97 10/12/16 06:40 10/12/16 06:40 10/12/16 06:40 10/12/16 06:40 10/12/16 06:40 Exam: He is sitting a chair resting comfortably. Lungs are clear. Extremities show decreased edema. He is wearing WILL hose. I reviewed his medications and lab results. Internal Medicine: Result - Labs CBC & Chem 7: 10/12/16 04:55 10/11/16 05:36 Labs: Short CBC 10/12/16 Range/Units 04:55 WBC 12.2 H (4.3-11.1) K/mcL Hgb 7.4 L (12.9-16.9) g/dL Hct 26.0 L (37.5-50.1) % Plt Count 196 (140-400) K/mcL Neutrophils # 8.9 (1.6-8.9) K/mcL - ABG Interpretation ABG results: ABG ABG pH 7.36 pH Units (7.32-7.45) 10/10/16 14:26 ABG pCO2 64 mmHg (35-45) H 10/10/16 14:26 ABG pO2 70 mmHg (85-104) L 10/10/16 14:26 ABG O2 Saturation 92 % (95-98) L 10/10/16 14:26 - VTE Documentation of Mechanical Device: Graduated compression elastic hosiery Consult Discharge Plan - Plan Referrals: Sara Rabago MD [Primary Care Provider] - 1 week
[2016-10-13 05:46] LABS: Basophils # 0.1 K/mcL (0.0-0.2); Basophils % 0.5 %; Eosinophils # 0.2 K/mcL (0.0-0.6); Eosinophils % 2.6 %; Hematocrit 26.1 % (37.5-50.1); Hemoglobin 7.3 g/dL (12.9-16.9); Immature Granulocytes % 0.4 % (0-4); Lymphocytes # 1.5 K/mcL (0.6-4.6); Lymphocytes % 16.6 %; Mean Corpuscular Hemoglobin 28.7 pg (28.0-33.3); Mean Corpuscular Volume 102.8 fL (83.0-100.0); Mean Platelet Volume 10.1 fL (9.4-12.4); Monocytes # 0.9 K/mcL (0.0-1.3); Monocytes % 9.5 %; Neutrophils # 6.4 K/mcL (1.6-8.9); Platelet Count 213 K/mcL (140-400); Red Blood Count 2.54 M/mcL (4.19-5.50); Red Cell Distribution Width 18.7 % (11.5-14.5); Segmented Neutrophils % 70.4 %
[2016-10-13] MEDS: Ascorbic Acid 500 MG TABLET PO SCH (06:17)
[2016-10-13 07:08] LABS: Anisocytosis 1+ (Not Present); Hypochromasia Present (Not Present); Platelet Estimate Normal (Normal); Polychromasia 1+ (Not Present)
[2016-10-13] MEDS: Lactobacillus 1 EACH CAP.SPRINK PO SCH ×2 (10:09→20:09)
[2016-10-13] MEDS: Isosorbide MONOnitrate (24 HR) 60 MG TAB.ER.24H PO SCH (10:09)
[2016-10-13] MEDS: Folic Acid 1 MG TABLET PO SCH (10:09)
[2016-10-13] MEDS: *HR* Digoxin 0.25 MG TABLET PO SCH (10:09)
[2016-10-13] MEDS: Bumetanide 1 MG/4 ML VIAL IVP SCH ×2 (10:10→17:24)
[2016-10-13] MEDS: Piperacillin/Tazobactam 3.375 GM in D5% in Water (Mini-Bag+) 100 ML IVPB SCH ×2 (10:21→17:39)
[2016-10-13] MEDS: (Fluticasone/Vilanterol [Breo Ellipta 100-25 Mcg Inh] IH SCH (10:36)
--- NOTE | 2016-10-13 19:00 | Internal Med Progress Note ---
Date of Encounter: 10/13/16 Time of Encounter: 18:50 - Assessment and plan (1) Dyspnea Current Visit: No Status: Acute Assessment and plan: October 12. Improved. Continue antibiotics and medicine for heart failure. October 13. Stable. Anticipate discharge home tomorrow. Qualifiers: Dyspnea type: shortness of breath Qualified Code(s): R06.02 - Shortness of breath (2) Anemia Current Visit: No Status: Acute Assessment and plan: October 12. Remain off Xarelto and continue ferrous sulfate with vitamin C. Recheck labs in a.m. October 13. Hemoglobin stable. Anticipate discharge home tomorrow. Remain off Xarelto and aspirin. Continue ferrous sulfate with vitamin C Qualifiers: Anemia type: iron deficiency Iron deficiency anemia type: unspecified iron deficiency Qualified Code(s): D50.9 - Iron deficiency anemia, unspecified (3) Hypothyroidism Current Visit: No Status: Chronic Assessment and plan: October 12. TSH was 5.348 on 09/18/2016. Continue Synthroid Qualifiers: Hypothyroidism type: unspecified Qualified Code(s): E03.9 - Hypothyroidism , unspecified (4) Neutrophilic leukocytosis Current Visit: No Status: Resolved Assessment and plan: October 12. Continue Zosyn and lactobacillus. Recheck labs in a.m. (5) Congestive heart failure Current Visit: No Status: Acute Assessment and plan: October 12. Continue Lanoxin, Lopressor, Imdur, and IV Bumex Qualifiers: Congestive heart failure type: unspecified congestive heart failure type Congestive heart failure chronicity: acute on chronic Qualified Code(s): I50.9 - Heart failure, unspecified (6) Atrial fibrillation Current Visit: No Status: Chronic Assessment and plan: October 12. Continue Lopressor and Lanoxin for rate control. Remain off Xarelto because of anemia Qualifiers: Atrial fibrillation type: chronic Qualified Code(s): I48.2 - Chronic atrial fibrillation - Subjective Interval history: October 12. He has no new complaints and he states his dyspnea has improved. October 13. He has no new complaints and feels improved overall. - Constitutional Vitals: Temp Pulse Resp BP Pulse Ox 98.5 F 85 20 96/55 97 10/13/16 17:22 10/13/16 17:22 10/13/16 17:22 10/13/16 17:22 10/13/16 17:22 Exam: He is resting comfortably in bed. His affect is bright and cheerful. He does not appear dyspneic. I reviewed his medications and lab results. Internal Medicine: Result - Labs CBC & Chem 7: 10/13/16 05:15 10/11/16 05:36 Labs: Short CBC 10/13/16 Range/Units 05:15 WBC 9.1 (4.3-11.1) K/mcL Hgb 7.3 L (12.9-16.9) g/dL Hct 26.1 L (37.5-50.1) % Plt Count 213 (140-400) K/mcL Neutrophils # 6.4 (1.6-8.9) K/mcL - ABG Interpretation ABG results: ABG ABG pH 7.36 pH Units (7.32-7.45) 10/10/16 14:26 ABG pCO2 64 mmHg (35-45) H 10/10/16 14:26 ABG pO2 70 mmHg (85-104) L 10/10/16 14:26 ABG O2 Saturation 92 % (95-98) L 10/10/16 14:26 - VTE Documentation of Mechanical Device: Graduated compression elastic hosiery Consult Discharge Plan - Plan Referrals: Sara Rabago MD [Primary Care Provider] - 1 week
[2016-10-14] MEDS: Piperacillin/Tazobactam 3.375 GM in D5% in Water (Mini-Bag+) 100 ML IVPB SCH ×2 (00:46→06:53)
[2016-10-14] MEDS: Ascorbic Acid 500 MG TABLET PO SCH (05:10)
[2016-10-14] MEDS: Folic Acid 1 MG TABLET PO SCH (09:49)
[2016-10-14] MEDS: Lactobacillus 1 EACH CAP.SPRINK PO SCH (09:49)
[2016-10-14] MEDS: *HR* Digoxin 0.25 MG TABLET PO SCH (09:49)
[2016-10-14] MEDS: Isosorbide MONOnitrate (24 HR) 60 MG TAB.ER.24H PO SCH (09:49)
[2016-10-14] MEDS: Bumetanide 1 MG/4 ML VIAL IVP SCH (09:49)
[2016-10-14] MEDS: (Fluticasone/Vilanterol [Breo Ellipta 100-25 Mcg Inh] IH SCH (09:50)
[2016-10-14 10:51] VITALS: BP 100/55
--- NOTE | 2016-10-14 11:00 | Discharge Summary ---
Date of Encounter: 10/14/16 Time of Encounter: 10:50 - Discharge Diagnosis (1) Dyspnea Priority: Primary Status: Acute Qualifiers: Dyspnea type: shortness of breath Qualified Code(s): R06.02 - Shortness of breath (2) Anemia Priority: Secondary Status: Acute Qualifiers: Anemia type: iron deficiency Iron deficiency anemia type: unspecified iron deficiency Qualified Code(s): D50.9 - Iron deficiency anemia, unspecified (3) Hypothyroidism Priority: Secondary Status: Chronic Qualifiers: Hypothyroidism type: unspecified Qualified Code(s): E03.9 - Hypothyroidism , unspecified (4) Neutrophilic leukocytosis Priority: Secondary Status: Resolved (5) Congestive heart failure Priority: Secondary Status: Chronic Qualifiers: Congestive heart failure type: unspecified congestive heart failure type Congestive heart failure chronicity: acute on chronic Qualified Code(s): I50.9 - Heart failure, unspecified (6) Atrial fibrillation Priority: Secondary Status: Chronic Qualifiers: Atrial fibrillation type: chronic Qualified Code(s): I48.2 - Chronic atrial fibrillation - Discharge Medications Prescriptions: Bumetanide [Bumex] 1 mg PO BID #60 tablet Home Medications: Levothyroxine [Synthroid] 125 mcg PO 0630 07/13/16 [History] Ropinirole [Requip] 0.25 mg PO HS 09/16/16 [History] Digoxin [Lanoxin] 0.25 mg PO DAILY #30 tablet 09/19/16 [Rx] Folic Acid 1 mg PO DAILY #30 tablet 09/19/16 [Rx] Metoprolol [Lopressor] 25 mg PO BID #60 tablet 09/19/16 [Rx] Atorvastatin [Lipitor] 40 mg PO HS 09/20/16 [History] Docusate [Colace] 100 mg PO DAILY PRN 09/20/16 [History] Fluticasone/Vilanterol [Breo Ellipta 100-25 Mcg INH] 1 each IH DAILY 09/20/16 [ History] Ascorbic Acid [Vitamin C] 500 mg PO DAILY #30 tablet.er 10/07/16 [Rx] Citalopram Hydrobromide [Celexa] 20 mg PO DAILY #0 10/07/16 [Rx] Ferrous Sulfate 325 mg PO DAILY #30 tablet.dr 10/07/16 [Rx] Isosorbide MONOnitrate (24 HR) [Imdur] 60 mg PO DAILY #30 tab.er.24h 10/07/16 [ Rx] Bumetanide [Bumex] 1 mg PO BID #60 tablet 10/14/16 [Rx] Allergies/Adverse Reactions: Allergies No Known Allergies Allergy (Verified 10/10/16 14:07) Date of admission: 10/10/16 17:16 Primary care physician: Sara Rabago Consults: 10/12/16 10:19 Consult to Occupational Therapy [CONS] Routine Comment: Evaluate, develop and implement POC Consult to Physical Therapy [CONS] Routine Comment: Evaluate, develop and implement POC - Patient Status Disposition: Home Health Service Condition: Fair Functional capacity at discharge: uses cane/walker Overall status at discharge: patient is progressing back to baseline - Discharge Instructions Follow Up With: Sara Rabago MD [Primary Care Provider] - 1 week - Diet and Activity Activity: resume usual activities as tolerated, wear oxygen at all times Diet: advance to your usual diet Hospital course: Mr. Abdullahi is a 66 year old male came to emergency room complaining of dyspnea. He was in [facility] swing bed September 27- following hospitalization at [facility] September 20 for dyspnea. He was hospitalized at [facility] September 16-September 19 for dyspnea. he denied other symptoms in emergency room other than dyspnea. He is unable to give an adequate additional history stating he has had a stroke in the past and his memory is poor. He denies chest pain melena or hematochezia. He was admitted to [facility] floor for ongoing care needs. Initial orders were written by the emergency room physician. I saw him on October 11 and performed the history and physical. He was started on Zosyn through emergency room for possible pneumonia. Lactobacillus was also given. There was resolution of the neutrophilia and he remained afebrile throughout the hospital stay. Antibiotics will not be continued at discharge. He was placed on IV Bumex. He had good diuresis and dyspnea lessened. His other heart failure medications were continued as at home. His hemoglobin was decreased on admission so Xarelto was held. Aspirin was discontinued at his last discharge because of decline in hemoglobin. Hemoglobin stabilized following discontinuation of Xarelto and was 7.3 on the day prior to discharge. His PCP can further monitor this. On October 14 he felt stable for discharge home. He will follow with his PCP Dr. Rabago within 1 week. Home health services will be ordered. - Time Spent with Patient Total time spent providing and/or coordinating discharge services: - Constitutional Vitals: Temp Pulse Resp BP Pulse Ox 98.2 F 76 18 100/55 100 10/14/16 10:51 10/14/16 10:51 10/14/16 10:51 10/14/16 10:51 10/14/16 10:51 - VTE Documentation of Mechanical Device: Graduated compression elastic hosiery
--- NOTE | 2016-10-14 11:11 | Physician Discharge Referral ---
Home Health/Hosp Referral Info Transfer to: Home Health Attending Provider: Gio Provider in Charge Post Discharge: PCP Michael) - Diagnosis (1) Dyspnea Priority: Primary Status: Acute (2) Anemia Priority: Secondary Status: Acute (3) Hypothyroidism Priority: Secondary Status: Chronic (4) Neutrophilic leukocytosis Priority: Secondary Status: Resolved (5) Congestive heart failure Priority: Secondary Status: Chronic (6) Atrial fibrillation Priority: Secondary Status: Chronic - Respiratory Orders Oxygen / L per min (Oxygen at 2-4 L/m 09/01) Smoking Cessation: Smoking cessation has been advised. For more information, call the [place] Tobacco Quit Line at 5-300-WJYQ-NOW. - Diet/Nutrition Diet/Nutrition Orders: No Added Salt (MIKEL) - Activity Activity Orders: Ambulate, Walker - Services Needed Following services are medically necessary services: Nursing, Home Health Aide, Physical Therapy, Occupational Therapy - Transfer Medications Prescriptions: Bumetanide [Bumex] 1 mg PO BID #60 tablet Home Medications: Levothyroxine [Synthroid] 125 mcg PO 0630 07/13/16 [History] Ropinirole [Requip] 0.25 mg PO HS 09/16/16 [History] Digoxin [Lanoxin] 0.25 mg PO DAILY #30 tablet 09/19/16 [Rx] Folic Acid 1 mg PO DAILY #30 tablet 09/19/16 [Rx] Metoprolol [Lopressor] 25 mg PO BID #60 tablet 09/19/16 [Rx] Atorvastatin [Lipitor] 40 mg PO HS 09/20/16 [History] Docusate [Colace] 100 mg PO DAILY PRN 09/20/16 [History] Fluticasone/Vilanterol [Breo Ellipta 100-25 Mcg INH] 1 each IH DAILY 09/20/16 [ History] Ascorbic Acid [Vitamin C] 500 mg PO DAILY #30 tablet.er 10/07/16 [Rx] Citalopram Hydrobromide [Celexa] 20 mg PO DAILY #0 10/07/16 [Rx] Ferrous Sulfate 325 mg PO DAILY #30 tablet.dr 10/07/16 [Rx] Isosorbide MONOnitrate (24 HR) [Imdur] 60 mg PO DAILY #30 tab.er.24h 10/07/16 [ Rx] Bumetanide [Bumex] 1 mg PO BID #60 tablet 10/14/16 [Rx] Allergies/Adverse Reactions: Allergies No Known Allergies Allergy (Verified 10/10/16 14:07) Certification: Further, I certify that my clinical findings support that this patient is homebound (i.e. absences from home require considerable and taxing effort and are for medical reasons or catholic services or infrequently or short duration when for other reasons) because: Homebound Reason: Leaving home requires considerable and taxing effort due to condition (Heart failure with dyspnea on exertion.) Attestation: My signature below is to certify that this patient is under my care and that I, or nurse practitioner, or a physician's travel assistant working with me, has a face-to -face encounter with this patient.
== END 2016-10-14 16:40 | disposition home health service (06) | DRG 291 ==
LOC: EMEROOPIK 14:05 → INPPIK 14:05
PROVIDERS: ADMIT Internal Medicine; ATTEND Internal Medicine

== ENCOUNTER 2016-10-28 09:14 | Observation (INO) ==
[2016-10-28] MEDS ORDERED: Levofloxacin 750 MG/150 ML 750 MG/150 ML BAG IVPB ONE (09:20)
[2016-10-28] MEDS ORDERED: methylPREDNISolone 125 MG/2 ML VIAL IVP ONE (09:20)
[2016-10-28] MEDS ORDERED: Ipratropium/Albuterol Neb 3 ML IH ONE (09:20)
--- NOTE | 2016-10-28 09:22 | Emergency Department Note ---
Disposition Clinical Impression: Acute and chronic respiratory failure Qualifiers: Respiratory failure complication: hypoxia and hypercapnia Qualified Code(s): J96.21 - Acute and chronic respiratory failure with hypoxia Congestive heart failure Qualifiers: Congestive heart failure type: unspecified congestive heart failure type Congestive heart failure chronicity: acute Qualified Code(s): I50.9 - Heart failure, unspecified Disposition: Admitted As Inpatient Condition: Fair Referrals: NO,PCP [Non-Partnered Physician] - Forms: ED Satisfaction Letter SOB HPI - General Chief Complaint: ED Shortness of Breath/Dyspnea Stated Complaint: SOB/CP Time Seen by Provider: 10/28/16 09:16 Source: patient, EMS Mode of arrival: EMS Limitations: physical limitation Nursing Notes Reviewed: Yes Vital Signs Reviewed: Yes - History of Present Illness Patient arrived stating he has had increasing shortness of breath for 24 hours. He indicates only been increasing. He had reported chest pain as well but he states this is just that his breathing is tight and difficult. Denies any other pain or complaining or specifically any pain to his arms, jaw or back. He does report a cough which is nonproductive. He denies fevers, diaphoresis or nausea. He denies any other pain including abdomen or extremities. He indicates he does have edema of his legs but does not believe that it is worse. He denies increased weight and he denied history of congestive heart failure. He does volunteer that he had had a coronary artery bypass graft in the past. He reports that he has been on his routine medicines and his oxygen by nasal cannula at a 4 L rate. EMS has transported the patient to us stating that he was at 96% on his 4 L. He has chronic atrial fibrillation with good rate control. It appears that he has had a couple recent admissions for dyspnea with some fluid retention and heart failure. The patient's family states that he swelled up yesterday. He had an episode at home with oxygen saturations down into the 50s and 60s. They had called the squad for him and when they found his saturations to be in the 90s on his 4 L, he declined to come to the emergency department yesterday. They do note that he has had increased fluid retention. Pt Subjective Complaint: shortness of breath Onset (ago): day(s) (1) Severity: moderate, severe Consistency/Duration: gradually worsening Improves with: oxygen, rest, upright position Worsens with: lying flat, exertion, movement Known history of: COPD, congestive heart failure Associated symptoms: Reports: chest pain (Tightness with breathing), cough, wheezing, orthopnea. Denies: pain with inspiration, fever, sputum production, lower extremity pain, polyuria, polydipsia, parasthesias, palpitations, hemoptysis, diaphoresis, nausea/vomiting, syncope, abdominal pain, rash Treatment prior to arrival: oxygen Cough present: Yes Cough Description: Voluntary, Non-Productive Cough Frequency: Intermittent Sputum production: No - Related Data Home oxygen amount: 4 liters Home Medications Medication Instructions Recorded Confirmed Levothyroxine [Synthroid] 125 mcg PO 0630 07/13/16 10/28/16 rOPINIRole [Requip] 0.25 mg PO HS 09/16/16 10/28/16 Atorvastatin [Lipitor] 40 mg PO HS 09/20/16 10/28/16 Docusate [Colace] 100 mg PO DAILY PRN 09/20/16 10/28/16 Fluticasone/Vilanterol [Breo 1 each IH DAILY 09/20/16 10/28/16 Ellipta 100-25 Mcg INH] Previous Rx's Medication Instructions Recorded Digoxin [Lanoxin] 0.25 mg PO DAILY #30 tablet 09/19/16 Folic Acid 1 mg PO DAILY #30 tablet 09/19/16 Metoprolol [Lopressor] 25 mg PO BID #60 tablet 09/19/16 Ascorbic Acid [Vitamin C] 500 mg PO DAILY #30 tablet.er 10/07/16 Citalopram Hydrobromide [Celexa] 20 mg PO DAILY #0 10/07/16 Ferrous Sulfate 325 mg PO DAILY #30 tablet.dr 10/07/16 Isosorbide MONOnitrate (24 HR) 60 mg PO DAILY #30 tab.er.24h 10/07/16 [Imdur] Bumetanide [Bumex] 1 mg PO BID #60 tablet 10/14/16 Allergies Allergy/AdvReac Type Severity Reaction Status Date / Time No Known Allergies Allergy Verified 10/10/16 14:07 All systems ED: reviewed and negative except as stated. Past Medical History - Past Medical History Attestation: Yes The following information was validated with the patient. Source: patient, old records reviewed, nursing notes reviewed Medical history: Reports: atrial fibrillation, CHF, COPD, coronary artery disease, CVA, DVT, dementia, hyperlipidemia, hypertension, renal disease, thyroid disease, other (Obstructive sleep apnea, anemia) Surgical history: Reports: coronary bypass (CABG), IVC Filter Psychiatric history: Reports: anxiety, depression - Social History Smoking Status: Current every day smoker Smokeless Tobacco Status: No Alcohol use: Reports: none Drug use: Reports: none Physical Exam - General Limitations: physical limitation General appearance: alert, in distress - Head Head exam: atraumatic, normocephalic, normal inspection - Eye Eye exam: Present: normal appearance, PERRL, EOMI. Absent: scleral icterus, conjunctival injection - ENT ENT exam: normal exam, normal oropharynx, mucous membranes moist - Neck Neck exam: Present: normal inspection, full ROM, trachea midline - Chest Chest inspection: Present: normal inspection, symmetric chest wall rise. Absent : tenderness - Respiratory Respiratory exam: Present: respiratory distress, prolonged expiratory phase, other (Diminished breath sounds throughout.). Absent: wheezes, accessory muscle use - Cardiovascular Cardiovascular exam: Present: irregular rhythm, normal heart sounds. Absent: bradycardia, tachycardia - Abdominal Exam Abdominal exam: Present: soft, Non-Tender, normal bowel sounds. Absent: tenderness, distention, guarding, rebound, rigidity - Extremities Exam Extremities exam: Present: normal inspection, full ROM, normal capillary refill , pedal edema (2+). Absent: tenderness, calf tenderness - Expanded Lower Extremity Exam Neurovascular/Tendon exam: Present: normal capillary refill. Absent: motor deficit, sensory deficit, tendon deficit Gait: not tested/not observed - Back Exam Back exam: Present: normal inspection, full ROM. Absent: tenderness, vertebral tenderness - Neurological Exam Neurological exam: Present: alert. Absent: motor sensory deficit - Psychiatric Psychiatric exam: Present: normal affect, normal mood - Skin Skin exam: Present: warm, dry, intact, normal color. Absent: cyanosis, diaphoresis, pallor Course Course Narrative: 09: Patient's recent admissions have been reviewed. Appears he has chronic respiratory issues as well as recurrent fluid retention with some pulmonary edema. He indicates he is gradually became worse cough than he has been started on some Solu-Medrol and antibiotics to cover exacerbation of his COPD. He also has significant pitting edema in his lower extremities that he will be administered a dose of Lasix pending return of laboratory and x-ray. 1030: Return of all initial lab, EKG and x-ray, there has been discussed with the patient and family. Family was worried about him having chest pain earlier the patient is adamant that he is not having any chest pain at this time. Indicates his chest discomfort he thought was because of the trouble breathing. I did reassure the family that we were running laboratory tests for the possibility for heart attack. His initial troponin is slightly elevated at 0.05 and will need to be followed serially. I will contact Dr. Powers to see if he desires a repeated in the emergency department or feel like to have him for observation and diuresis on the floor with serial enzymes. 1040: Has been discussed with Dr. Powers. He would like to have the troponin repeated at 11:30 AM. If the troponin is less then 0.08, he feels comfortable observing the patient at this facility. 1205: Repeat troponin is 0.05. This is relayed to Dr. Powres who would like the patient admitted to the floor. We are coordinating his admission at this time. Vital Signs Temperature 97.5 F L 10/28/16 09:19 Pulse Rate 69 10/28/16 09:19 Respiratory Rate 20 10/28/16 09:19 Blood Pressure 115/63 10/28/16 09:19 O2 Sat by Pulse Oximetry 92 10/28/16 09:19 Temperature 97.5 F L 10/28/16 09:21 Pulse Rate 55 10/28/16 11:43 Respiratory Rate 20 10/28/16 11:43 Blood Pressure 122/59 10/28/16 11:43 O2 Sat by Pulse Oximetry 92 10/28/16 11:43 Oxygen Delivery Oxygen Delivery Nasal Cannula Shortness of Breath/Dyspnea - Differential Diagnosis Likely: acute exacerbation of chronic obstructive airways disease, congestive heart failure, pneumonia - Medical Records Medical records reviewed: Yes I reviewed the patient's medical records. - Lab Data Lab results reviewed: Yes I reviewed the patient's lab results. Result diagrams: 10/28/16 09:58 10/28/16 09:58 Lab Results 10/28/16 10/28/16 10/28/16 Range/Units 09:45 09:58 09:58 WBC 11.6 H (4.3-11.1) K/mcL RBC 2.87 L (4.19-5.50) M/mcL Hgb 8.5 L (12.9-16.9) g/dL Hct 30.7 L (37.5-50.1) % MCV 107.0 H (83.0-100.0) fL MCH 29.6 (28.0-33.3) pg MCHC 27.7 L (31.6-35.5) g/dL RDW 17.0 H (11.5-14.5) % Plt Count 267 (140-400) K/mcL MPV 10.1 (9.4-12.4) fL Immature Gran % 0.6 (0-4) % Seg Neutrophils % 73.4 % Lymphocytes % 11.8 % Monocytes % 12.4 % Eosinophils % 1.2 % Basophils % 0.6 % Neutrophils # 8.5 (1.6-8.9) K/mcL Lymphocytes # 1.4 (0.6-4.6) K/mcL Monocytes # 1.4 H (0.0-1.3) K/mcL Eosinophils # 0.1 (0.0-0.6) K/mcL Basophils # 0.1 (0.0-0.2) K/mcL Platelet Estimate Normal (Normal) Hypochromasia Present A (Not Present) Anisocytosis 1+ A (Not Present) Macrocytosis Present A (Not Present) Ovalocytes 1+ A (Not Present) PT (9.4-12.1) Seconds INR APTT (26.0-36.0) Seconds ABG pH 7.34 (7.32-7.45) pH Units ABG pCO2 72 H* (35-45) mmHg ABG pO2 66 L (85-104) mmHg ABG HCO3 39.0 H (21-27) mEQ/L ABG Total CO2 41.2 H (20-26) mEq/L ABG O2 Saturation 90 L (95-98) % ABG Base Excess 11.2 H (-2.0 to 3.0) mEq/L Liter Flow 4 L/MIN Blood Gas Modality NC Inspired O2 36 % Sodium 145 (136-145) mEq/L Potassium 4.7 H (3.5-4.5) mEq/L Chloride 99 (98-109) mEq/L Carbon Dioxide 38 H (19-29) mEq/L BUN 15 (8-26) mg/dL Creatinine 0.82 (0.72-1.25) mg/dL Est GFR ( Amer) > 60 (> 60) Est GFR (Non-Af Amer) > 60 (> 60) BUN/Creatinine Ratio 18 (6-26) Glucose 99 (70-99) mg/dL Calculated Osmolality 301 H (280-300) Calcium 8.8 (8.6-10.8) mg/dL Troponin I (0-0.03) ng/mL B-Natriuretic Peptide (0-100) pg/mL Digoxin (0.8-2.0) ng/mL 10/28/16 10/28/16 10/28/16 Range/Units 09:58 09:58 09:58 WBC (4.3-11.1) K/mcL RBC (4.19-5.50) M/mcL Hgb (12.9-16.9) g/dL Hct (37.5-50.1) % MCV (83.0-100.0) fL MCH (28.0-33.3) pg MCHC (31.6-35.5) g/dL RDW (11.5-14.5) % Plt Count (140-400) K/mcL MPV (9.4-12.4) fL Immature Gran % (0-4) % Seg Neutrophils % % Lymphocytes % % Monocytes % % Eosinophils % % Basophils % % Neutrophils # (1.6-8.9) K/mcL Lymphocytes # (0.6-4.6) K/mcL Monocytes # (0.0-1.3) K/mcL Eosinophils # (0.0-0.6) K/mcL Basophils # (0.0-0.2) K/mcL Platelet Estimate (Normal) Hypochromasia (Not Present) Anisocytosis (Not Present) Macrocytosis (Not Present) Ovalocytes (Not Present) PT 12.0 (9.4-12.1) Seconds INR 1.1 APTT 26.8 (26.0-36.0) Seconds ABG pH (7.32-7.45) pH Units ABG pCO2 (35-45) mmHg ABG pO2 (85-104) mmHg ABG HCO3 (21-27) mEQ/L ABG Total CO2 (20-26) mEq/L ABG O2 Saturation (95-98) % ABG Base Excess (-2.0 to 3.0) mEq/L Liter Flow L/MIN Blood Gas Modality Inspired O2 % Sodium (136-145) mEq/L Potassium (3.5-4.5) mEq/L Chloride (98-109) mEq/L Carbon Dioxide (19-29) mEq/L BUN (8-26) mg/dL Creatinine (0.72-1.25) mg/dL Est GFR ( Amer) (> 60) Est GFR (Non-Af Amer) (> 60) BUN/Creatinine Ratio (6-26) Glucose (70-99) mg/dL Calculated Osmolality (280-300) Calcium (8.6-10.8) mg/dL Troponin I 0.05 H* (0-0.03) ng/mL B-Natriuretic Peptide 1098 H (0-100) pg/mL Digoxin (0.8-2.0) ng/mL 10/28/16 10/28/16 Range/Units 09:58 11:35 WBC (4.3-11.1) K/mcL RBC (4.19-5.50) M/mcL Hgb (12.9-16.9) g/dL Hct (37.5-50.1) % MCV (83.0-100.0) fL MCH (28.0-33.3) pg MCHC (31.6-35.5) g/dL RDW (11.5-14.5) % Plt Count (140-400) K/mcL MPV (9.4-12.4) fL Immature Gran % (0-4) % Seg Neutrophils % % Lymphocytes % % Monocytes % % Eosinophils % % Basophils % % Neutrophils # (1.6-8.9) K/mcL Lymphocytes # (0.6-4.6) K/mcL Monocytes # (0.0-1.3) K/mcL Eosinophils # (0.0-0.6) K/mcL Basophils # (0.0-0.2) K/mcL Platelet Estimate (Normal) Hypochromasia (Not Present) Anisocytosis (Not Present) Macrocytosis (Not Present) Ovalocytes (Not Present) PT (9.4-12.1) Seconds INR APTT (26.0-36.0) Seconds ABG pH (7.32-7.45) pH Units ABG pCO2 (35-45) mmHg ABG pO2 (85-104) mmHg ABG HCO3 (21-27) mEQ/L ABG Total CO2 (20-26) mEq/L ABG O2 Saturation (95-98) % ABG Base Excess (-2.0 to 3.0) mEq/L Liter Flow L/MIN Blood Gas Modality Inspired O2 % Sodium (136-145) mEq/L Potassium (3.5-4.5) mEq/L Chloride (98-109) mEq/L Carbon Dioxide (19-29) mEq/L BUN (8-26) mg/dL Creatinine (0.72-1.25) mg/dL Est GFR ( Amer) (> 60) Est GFR (Non-Af Amer) (> 60) BUN/Creatinine Ratio (6-26) Glucose (70-99) mg/dL Calculated Osmolality (280-300) Calcium (8.6-10.8) mg/dL Troponin I 0.05 H* (0-0.03) ng/mL B-Natriuretic Peptide (0-100) pg/mL Digoxin 1.5 (0.8-2.0) ng/mL - Radiology Data Radiology results reviewed: Yes I reviewed the patient's radiology results. Single view chest x-ray is performed. This demonstrates cardiomegaly and some increased interstitial markings consistent with pulmonary edema. I do not see evidence for acute infiltrate, effusion or pneumothorax. This is on my interpretation. Impressions Chest X-Ray 10/28/16 09:20 IMPRESSION: Cardiomegaly with mild central interstitial pulmonary edema suggesting mild CHF. Patchy bibasilar opacity stable since prior examination that may represent atelectasis or persistent pneumonia. D/ / Hari Mckeon MD / Hari Mckeon MD Interpreting Provider: Hari Mckeon MD - EKG Data EKG attestation: Yes I reviewed and interpreted this EKG. EKG shows normal: Reports: axis, intervals, QRS complexes, ST-T waves Rate: Reports: normal (64) Interpretation: Reports: no acute changes
[2016-10-28] MEDS ORDERED: Furosemide 40 MG/4 ML VIAL IVP ONE (09:25)
[2016-10-28 09:48] LABS: ABG PH 7.34 pH Units (7.32-7.45)
[2016-10-28 09:49] LABS: ABG PCO2 72 mmHg (35-45)
[2016-10-28 09:50] LABS: ABG Base Excess 11.2 mEq/L (-2.0 to 3.0); ABG Oxygen Saturation 90 % (95-98); ABG PO2 66 mmHg (85-104); ABG TCO2 41.2 mEq/L (20-26); Blood Gas FiO2 36 %; Blood Gas Liter Flow 4 L/MIN
[2016-10-28 10:06] LABS: Basophils # 0.1 K/mcL (0.0-0.2); Basophils % 0.6 %; Eosinophils # 0.1 K/mcL (0.0-0.6); Eosinophils % 1.2 %; Hematocrit 30.7 % (37.5-50.1); Hemoglobin 8.5 g/dL (12.9-16.9); Immature Granulocytes % 0.6 % (0-4); Lymphocytes # 1.4 K/mcL (0.6-4.6); Lymphocytes % 11.8 %; Mean Corpuscular HGB Conc 27.7 g/dL (31.6-35.5); Mean Corpuscular Hemoglobin 29.6 pg (28.0-33.3); Mean Platelet Volume 10.1 fL (9.4-12.4); Monocytes # 1.4 K/mcL (0.0-1.3); Monocytes % 12.4 %; Neutrophils # 8.5 K/mcL (1.6-8.9); Platelet Count 267 K/mcL (140-400); Red Blood Count 2.87 M/mcL (4.19-5.50); Segmented Neutrophils % 73.4 %
[2016-10-28 10:13] LABS: INR 1.1
[2016-10-28 10:21] LABS: BUN/Creatinine Ratio 18 (6-26); Blood Urea Nitrogen 15 mg/dL (8-26); Calcium 8.8 mg/dL (8.6-10.8); Carbon Dioxide 38 mEq/L (19-29); Chloride 99 mEq/L (98-109); Glucose 99 mg/dL (70-99); Osmolality,Calculated 301 (280-300); Potassium 4.7 mEq/L (3.5-4.5); Sodium 145 mEq/L (136-145); eGFR For African Americans > 60 (> 60); eGFR For Non-African Americans > 60 (> 60)
[2016-10-28 10:22] LABS: Activated Partial Thrombo Time 26.8 Seconds (26.0-36.0)
[2016-10-28 11:51] LABS: Anisocytosis 1+ (Not Present); Hypochromasia Present (Not Present); Macrocytosis Present (Not Present); Ovalocytes 1+ (Not Present); Platelet Estimate Normal (Normal)
[2016-10-28] MEDS ORDERED: Ondansetron 4 MG/2 ML VIAL IVP PRN (12:23)
[2016-10-28] MEDS ORDERED: Naloxone 0.4 MG/ML INJ IVP PRN (12:23)
--- NOTE | 2016-10-28 13:39 | Electrocardiograph Report ---
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
--- NOTE | 2016-10-28 15:44 | Internal Med History&Physical ---
Date of Encounter: 10/28/16 Time of Encounter: 15:10 Assessment and Plan (1) Dyspnea Current visit: No Status: Acute Suspect multifactorial etiology with exacerbation of heart failure largest contributor. Imdur will be increased. Diuretics and Lanoxin will be continued. Further workup will be done as needed. Qualifiers: Dyspnea type: shortness of breath Qualified Code(s): R06.02 - Shortness of breath (2) Anemia Current visit: No Status: Acute Hemoglobin improved to 8.5 on admission from 7.3 on 10/13/2016. Remain off aspirin and Xarelto for now. Qualifiers: Anemia type: iron deficiency Iron deficiency anemia type: unspecified iron deficiency Qualified Code(s): D50.9 - Iron deficiency anemia, unspecified (3) Atrial fibrillation Current visit: No Status: Chronic Remain off aspirin and Xarelto for now. Qualifiers: Atrial fibrillation type: chronic Qualified Code(s): I48.2 - Chronic atrial fibrillation Internal Medicine - H&P: HPI Chief complaint: Dyspnea Admitted From: Home Plans for Post Hospital Care: Home History of present illness: Mr. Abdullahi is a 66 year old male who came to emergency room complaining of worsening dyspnea over the preceding 24 hours. He reports he had a mild discomfort in his right chest earlier today but does not describe the sensation as "pain". He reports the squad was called last evening because of worsening dyspnea but he improved during their visits and he did not come to the hospital. The dyspnea worsened again today so he was willing to come to the hospital. He was evaluated and felt to have exacerbation of heart failure and acute on chronic respiratory failure. He was admitted to [facility] floor for ongoing care needs. He was hospitalized at [facility] approximately 2 weeks ago with similar complaints. Respiratory history is significant for having smoked since age 10 up to 2-1/2 packs per day. He states he quit smoking since being discharged 2 weeks ago. He wears oxygen at home 09/01 at 4 L/m. He has a diagnosis of COPD. He has a diagnosis of ZIGGY but does not wear BiPAP at home. Past Med Surg Social Fam HX - Past Medical History Medical history: atrial fibrillation, CHF, COPD, coronary artery disease, CVA, DVT, dementia, hyperlipidemia, hypertension, renal disease, thyroid disease, other Psychiatric history: anxiety, depression - Past Surgical History Surgical History: coronary bypass (CABG), IVC Filter - Social History Smoking Status: Current every day smoker Smokeless Tobacco Status: No Alcohol use: none Drug use: none - Family History Mother Living Status: Hx Family Cardiac Disorders: Yes ([place]) Sister Living Status: Hx Family Cardiac Disorders: Yes ([place]) Father Living Status: Internal Medicine - H&P: Meds Levothyroxine [Synthroid] 125 mcg PO 0630 07/13/16 [History] rOPINIRole [Requip] 0.25 mg PO HS 09/16/16 [History] Digoxin [Lanoxin] 0.25 mg PO DAILY #30 tablet 09/19/16 [Rx] Folic Acid 1 mg PO DAILY #30 tablet 09/19/16 [Rx] Metoprolol [Lopressor] 25 mg PO BID #60 tablet 09/19/16 [Rx] Atorvastatin [Lipitor] 40 mg PO HS 09/20/16 [History] Docusate [Colace] 100 mg PO DAILY PRN 09/20/16 [History] Fluticasone/Vilanterol [Breo Ellipta 100-25 Mcg INH] 1 each IH DAILY 09/20/16 [ History] Ascorbic Acid [Vitamin C] 500 mg PO DAILY #30 tablet.er 10/07/16 [Rx] Citalopram Hydrobromide [Celexa] 20 mg PO DAILY #0 10/07/16 [Rx] Ferrous Sulfate 325 mg PO DAILY #30 tablet. 10/07/16 [Rx] Isosorbide MONOnitrate (24 HR) [Imdur] 60 mg PO DAILY #30 tab.er.24h 10/07/16 [ Rx] Bumetanide [Bumex] 1 mg PO BID #60 tablet 10/14/16 [Rx] Allergies No Known Allergies Allergy (Verified 10/10/16 14:07) All Systems PM: A 10-system review of systems was performed and is negative for pertinent findings except as documented above in the HPI. Review of systems: Review of systems from his recent [facility] stay were reviewed and revised as below. General: His weight has been stable at approximately 130 kg since the 2016 swing bed admission. Cardiovascular: He has hypertension and known ASHD with possible remote [place]. He states he had 4 vessel CABG approximately 2004. He had DVT with IVC filter placed several years ago. He has diagnoses of heart failure but does not know details. An echocardiogram was done at [facility] 09/21/2016 which showed poor quality imaging. The LVEF appeared to be mildly to moderately reduced. There was LAE at 4.6 cm. The interventricular septum and posterior wall thickness measurements were elevated at 1.30 cm. He has chronic atrial fibrillation. He had anemia during his last hospitalization so aspirin and Xarelto were held at the time of his last discharge and these have not been restarted. Respiratory: As per history of present illness GI: He denies disorders of his liver gallbladder or exocrine pancreas. He denies melena hematochezia or abdominal pain. 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 He uses a cane or walker to ambulate at home. He denies seizures. Endocrine: He has hyperlipidemia and hypothyroidism but denies diabetes. TSH was minimally elevated at 5.348 on 09/18/2016. Hematology/oncology: He was found to have anemia during a recent [facility] stay with anemia testing showed iron 18, transferrin saturation 4%, transferrin 295, ferritin 88, folate 4.5, B12 333. He was started on ferrous sulfate with vitamin C and folic acid supplements. Aspirin and Xarelto have not been restarted as per above Psychiatric: He has anxiety but denies depression or other mental health issues Musk skeletal: He has DJD but no known gout or other bone joint or muscle disorders. - Constitutional Vitals: Temp Pulse Resp BP Pulse Ox 98.8 F 56 16 107/65 91 10/28/16 12:46 10/28/16 12:46 10/28/16 12:46 10/28/16 12:46 10/28/16 12:46 Exam: Gen.: He is a well-developed well-nourished male who appears slightly dyspneic. HEENT: Head is atraumatic and normocephalic. Eyes: EOMI. There is no scleral icterus. Mouth: Mucosa is moist. Neck: Supple and nontender. There is no thyromegaly or adenopathy noted. Heart: Irregularly irregular without murmurs or gallops Lungs: No wheezes or crackles are heard. Abdomen: Soft and nontender. No masses or guarding are noted. He has a large abdomen. Extremities: There is no cyanosis edema or clubbing noted. Dorsalis pedis and posterior tibial pulses are trace to 1+ palpable bilaterally. Neurologic: Mental status: He is talkative and a fair to good historian. Cranial nerves: Smile is symmetric. Forehead wrinkles bilaterally. Tongue protrudes midline. EOMI. He is hard of hearing. Motor: There is no pronator drift. Cerebellar: Finger to nose is intact bilaterally. Skin: Warm and dry. Internal Med - H&P Results - Labs CBC & Chem 7: 10/28/16 09:58 10/28/16 09:58
[2016-10-28] MEDS: rOPINIRole 0.25 MG TABLET PO SCH (20:14)
[2016-10-28] MEDS: Bumetanide 1 MG TABLET PO SCH (20:14)
[2016-10-29] MEDS: Ascorbic Acid 500 MG TABLET PO SCH ×2 (06:05→10:08)
[2016-10-29 07:26] LABS: Basophils % 0.2 %; Hematocrit 32.1 % (37.5-50.1); Immature Granulocytes % 0.5 % (0-4); Lymphocytes % 7.7 %; Mean Corpuscular Hemoglobin 28.9 pg (28.0-33.3); Mean Corpuscular Volume 103.2 fL (83.0-100.0); Mean Platelet Volume 10.4 fL (9.4-12.4); Monocytes # 1.2 K/mcL (0.0-1.3); Monocytes % 9.3 %; Neutrophils # 10.5 K/mcL (1.6-8.9); Platelet Count 292 K/mcL (140-400); Red Blood Count 3.11 M/mcL (4.19-5.50); Red Cell Distribution Width 17.2 % (11.5-14.5); Segmented Neutrophils % 82.3 %
[2016-10-29 07:59] LABS: BUN/Creatinine Ratio 21 (6-26); Blood Urea Nitrogen 18 mg/dL (8-26); Carbon Dioxide 39 mEq/L (19-29); Chloride 97 mEq/L (98-109); Glucose 109 mg/dL (70-99); Hypochromasia Present (Not Present); Magnesium 2.1 mg/dL (1.6-2.6); Osmolality,Calculated 300 (280-300); Potassium 4.2 mEq/L (3.5-4.5); Sodium 144 mEq/L (136-145); eGFR For African Americans > 60 (> 60); eGFR For Non-African Americans > 60 (> 60)
[2016-10-29] MEDS ORDERED: Ascorbic Acid 500 MG TABLET PO SCH (09:00)
[2016-10-29] MEDS ORDERED: Isosorbide MONOnitrate (24 HR) 60 MG TAB.ER.24H PO SCH (09:00)
[2016-10-29] MEDS: *HR* Digoxin 0.25 MG TABLET PO SCH (10:03)
[2016-10-29] MEDS: Bumetanide 1 MG TABLET PO SCH ×2 (10:03→21:06)
[2016-10-29] MEDS: Isosorbide MONOnitrate (24 HR) 60 MG TAB.ER.24H PO SCH (10:03)
[2016-10-29] MEDS: Folic Acid 1 MG TABLET PO SCH (10:03)
[2016-10-29] MEDS: [Breo Ellipta 100-25 Mcg Inh] IH SCH (10:07)
--- NOTE | 2016-10-29 14:33 | Internal Med Progress Note ---
Date of Encounter: 10/29/16 Time of Encounter: 14:20 - Assessment and plan (1) Dyspnea Current Visit: No Status: Acute Assessment and plan: October 29. WBC has risen slightly with worsening of the left shift. BMP peptide is also increased. Continue Bumex, Lanoxin, Imdur, and Lopressor. Will add doxycycline Qualifiers: Dyspnea type: shortness of breath Qualified Code(s): R06.02 - Shortness of breath (2) Anemia Current Visit: No Status: Acute Assessment and plan: October 29. Hemoglobin has improved to 9.0. Remain off aspirin and Xarelto for now. Qualifiers: Anemia type: iron deficiency Iron deficiency anemia type: unspecified iron deficiency Qualified Code(s): D50.9 - Iron deficiency anemia, unspecified (3) Atrial fibrillation Current Visit: No Status: Chronic Assessment and plan: October 29. Remain off aspirin and Xarelto for now. Qualifiers: Atrial fibrillation type: chronic Qualified Code(s): I48.2 - Chronic atrial fibrillation - Subjective Interval history: October 29. He has no new complaints. He states his dyspnea has improved. He reports no significant coughing and no productivity. - Constitutional Vitals: Temp Pulse Resp BP Pulse Ox 98.6 F 54 16 115/70 99 10/29/16 10:48 10/29/16 10:48 10/29/16 10:48 10/29/16 10:48 10/29/16 10:48 Exam: He is resting comfortably in bed. His affect is bright and cheerful. His lungs are clear without wheezes or crackles. Heart tones are soft. I reviewed his medications and lab results. Internal Medicine: Result - Labs CBC & Chem 7: 10/29/16 07:15 10/29/16 07:15 Labs: Short CBC 10/29/16 Range/Units 07:15 WBC 12.7 H (4.3-11.1) K/mcL Hgb 9.0 L (12.9-16.9) g/dL Hct 32.1 L (37.5-50.1) % Plt Count 292 (140-400) K/mcL Neutrophils # 10.5 H (1.6-8.9) K/mcL BMP 10/29/16 07:15 Sodium 144 Potassium 4.2 Chloride 97 L Carbon Dioxide 39 H BUN 18 Creatinine 0.86 Glucose 109 H Calcium 9.0 Cardiac Enzymes 10/29/16 Range/Units 00:10 Troponin I 0.04 H* (0-0.03) ng/mL - ABG Interpretation ABG results: ABG ABG pH 7.34 pH Units (7.32-7.45) 10/28/16 09:45 ABG pCO2 72 mmHg (35-45) H* 10/28/16 09:45 ABG pO2 66 mmHg (85-104) L 10/28/16 09:45 ABG O2 Saturation 90 % (95-98) L 10/28/16 09:45 PT/INR, D-dimer PT 12.0 Seconds (9.4-12.1) 10/28/16 09:58 Consult Discharge Plan - Plan Referrals: Sara Rabago MD [Primary Care Provider] - 1 week
[2016-10-29] MEDS ORDERED: Doxycycline 100 MG CAPSULE PO SCH (14:45)
[2016-10-29] MEDS: rOPINIRole 0.25 MG TABLET PO SCH (21:06)
[2016-10-29] MEDS: Doxycycline 100 MG CAPSULE PO SCH (21:06)
[2016-10-29] MEDS: Lactobacillus 1 EACH CAP.SPRINK PO SCH (21:07)
[2016-10-30 04:40] LABS: Basophils # 0.1 K/mcL (0.0-0.2); Basophils % 0.6 %; Eosinophils # 0.1 K/mcL (0.0-0.6); Eosinophils % 0.9 %; Hematocrit 29.3 % (37.5-50.1); Hemoglobin 8.2 g/dL (12.9-16.9); Immature Granulocytes % 0.6 % (0-4); Lymphocytes # 1.5 K/mcL (0.6-4.6); Lymphocytes % 12.4 %; Mean Corpuscular Hemoglobin 29.4 pg (28.0-33.3); Mean Platelet Volume 10.4 fL (9.4-12.4); Monocytes # 1.5 K/mcL (0.0-1.3); Monocytes % 12.6 %; Platelet Count 267 K/mcL (140-400); Red Blood Count 2.79 M/mcL (4.19-5.50); Segmented Neutrophils % 72.9 %
[2016-10-30 04:42] LABS: Neutrophils # 8.8 K/mcL (1.6-8.9)
[2016-10-30 05:05] LABS: Anisocytosis 1+ (Not Present); Basophilic Stippling 1+ (Not Present); Hypochromasia Present (Not Present)
[2016-10-30 05:10] LABS: Platelet Estimate Normal (Normal)
[2016-10-30 07:01] VITALS: BP 89/51
[2016-10-30] MEDS ORDERED: Ascorbic Acid 500 MG TABLET PO SCH (08:00)
[2016-10-30] MEDS: Bumetanide 1 MG TABLET PO SCH (09:18)
[2016-10-30] MEDS: *HR* Digoxin 0.25 MG TABLET PO SCH (09:18)
[2016-10-30] MEDS: Isosorbide MONOnitrate (24 HR) 60 MG TAB.ER.24H PO SCH (09:18)
[2016-10-30] MEDS: Doxycycline 100 MG CAPSULE PO SCH (09:18)
[2016-10-30] MEDS: Lactobacillus 1 EACH CAP.SPRINK PO SCH (09:18)
[2016-10-30] MEDS: Folic Acid 1 MG TABLET PO SCH (09:18)
[2016-10-30] MEDS: [Breo Ellipta 100-25 Mcg Inh] IH SCH (09:19)
--- NOTE | 2016-10-30 10:37 | Discharge Summary ---
Date of Encounter: 10/30/16 Time of Encounter: 10:25 - Discharge Diagnosis (1) Pneumonia Priority: Primary Status: Acute Qualifiers: Pneumonia type: due to unspecified organism Laterality: bilateral Lung location: lower lobe of lung Qualified Code(s): J18.9 - Pneumonia, unspecified organism (2) Anemia Priority: Secondary Status: Acute Qualifiers: Anemia type: iron deficiency Iron deficiency anemia type: unspecified iron deficiency Qualified Code(s): D50.9 - Iron deficiency anemia, unspecified (3) Atrial fibrillation Priority: Secondary Status: Chronic Qualifiers: Atrial fibrillation type: chronic Qualified Code(s): I48.2 - Chronic atrial fibrillation - Discharge Medications Prescriptions: Doxycycline 100 mg PO BID #10 capsule Lactobacillus [Culturelle] 1 each PO BID #10 cap.sprink Home Medications: Levothyroxine [Synthroid] 125 mcg PO 0630 07/13/16 [History] rOPINIRole [Requip] 0.25 mg PO HS 09/16/16 [History] Digoxin [Lanoxin] 0.25 mg PO DAILY #30 tablet 09/19/16 [Rx] Folic Acid 1 mg PO DAILY #30 tablet 09/19/16 [Rx] Atorvastatin [Lipitor] 40 mg PO HS 09/20/16 [History] Docusate [Colace] 100 mg PO DAILY PRN 09/20/16 [History] Fluticasone/Vilanterol [Breo Ellipta 100-25 Mcg INH] 1 each IH DAILY 09/20/16 [ History] Ascorbic Acid [Vitamin C] 500 mg PO DAILY #30 tablet.er 10/07/16 [Rx] Citalopram Hydrobromide [Celexa] 20 mg PO DAILY #0 10/07/16 [Rx] Ferrous Sulfate 325 mg PO DAILY #30 tablet. 10/07/16 [Rx] Bumetanide [Bumex] 1 mg PO BID #60 tablet 10/14/16 [Rx] Doxycycline 100 mg PO BID #10 capsule 10/30/16 [Rx] Isosorbide MONOnitrate (24 HR) [Imdur] 120 mg PO DAILY tab.er.24h 10/30/16 [Rx] Lactobacillus [Culturelle] 1 each PO BID #10 cap.sprink 10/30/16 [Rx] Metoprolol [Lopressor] 12.5 mg PO BID #60 tablet 10/30/16 [Rx] Allergies/Adverse Reactions: Allergies No Known Allergies Allergy (Verified 10/10/16 14:07) Date of admission: 10/28/16 12:19 Primary care physician: Sara Rabago Consults: 10/28/16 12:54 Consult to Pyrotechnist [CONS] Routine Reason for SW Consult: Discharge planning - Patient Status Disposition: Home, Self-Care Condition: Fair Functional capacity at discharge: uses cane/walker Overall status at discharge: patient is progressing back to baseline - Discharge Instructions Follow Up With: Sara Rabago MD [Primary Care Provider] - 1 week - Diet and Activity Activity: resume usual activities as tolerated, wear oxygen at all times Diet: low fat, low cholesterol Hospital course: Mr. Abdullahi is a 66 year old male who came to emergency room complaining of worsening dyspnea over the preceding 24 hours. He reports he had a mild discomfort in his right chest earlier today but does not describe the sensation as "pain". He reports the squad was called last evening because of worsening dyspnea but he improved during their visits and he did not come to the hospital. The dyspnea worsened again today so he was willing to come to the hospital. He was evaluated and felt to have exacerbation of heart failure and acute on chronic respiratory failure. He was admitted to [facility] for ongoing care needs. Initial orders were written by the emergency room physician. I saw him on October 28 and performed the history and physical. He was started on his home cardiac medication regimen except Imdur was increased to 120 mg daily. This will be continued at the higher dose upon discharge. His blood pressure and heart rate were borderline low so the dose of metoprolol will be decreased to 12.5 mg twice a day. WBC rufus to 12.7 on October 29 with 82.3% segs. He was started on doxycycline 100 milligrams by mouth twice a day and WBC improved to 12.0 with 72.9% segs on October 30. His Bn peptide rufus to 1323 on October 29 but had improved to 965 by October 30. He denied dyspnea when I saw him on October 30. On October 30 he felt stable for discharge home. He will follow with his PCP Dr. Rabago within 1 week. - Time Spent with Patient Total time spent providing and/or coordinating discharge services: - Constitutional Vitals: Temp Pulse Resp BP Pulse Ox 97.7 F 56 18 89/51 99 10/30/16 06:56 10/30/16 06:56 10/30/16 06:56 10/30/16 06:56 10/30/16 09:30
--- NOTE | 2016-10-30 11:24 | Physician Discharge Referral ---
Home Health/Hosp Referral Info Transfer to: Home Health Attending Provider: Gio Provider in Charge Post Discharge: PCP Michael) - Diagnosis (1) Pneumonia Priority: Primary Status: Acute (2) Anemia Priority: Secondary Status: Acute (3) Atrial fibrillation Priority: Secondary Status: Chronic - Respiratory Orders Oxygen / L per min (2-4 L/m by nasal cannula 09/01) Smoking Cessation: Smoking cessation has been advised. For more information, call the [place] Tobacco Quit Line at 3-712-LQRS-NOW. - Diet/Nutrition Diet/Nutrition Orders: Regular - Activity Activity Orders: Walker - Services Needed Following services are medically necessary services: Nursing, Home Health Aide, Physical Therapy, Occupational Therapy - Transfer Medications Prescriptions: Doxycycline 100 mg PO BID #10 capsule Lactobacillus [Culturelle] 1 each PO BID #10 cap.sprink Home Medications: Levothyroxine [Synthroid] 125 mcg PO 0630 07/13/16 [History] rOPINIRole [Requip] 0.25 mg PO HS 09/16/16 [History] Digoxin [Lanoxin] 0.25 mg PO DAILY #30 tablet 09/19/16 [Rx] Folic Acid 1 mg PO DAILY #30 tablet 09/19/16 [Rx] Atorvastatin [Lipitor] 40 mg PO HS 09/20/16 [History] Docusate [Colace] 100 mg PO DAILY PRN 09/20/16 [History] Fluticasone/Vilanterol [Breo Ellipta 100-25 Mcg INH] 1 each IH DAILY 09/20/16 [ History] Ascorbic Acid [Vitamin C] 500 mg PO DAILY #30 tablet.er 10/07/16 [Rx] Citalopram Hydrobromide [Celexa] 20 mg PO DAILY #0 10/07/16 [Rx] Ferrous Sulfate 325 mg PO DAILY #30 tablet. 10/07/16 [Rx] Bumetanide [Bumex] 1 mg PO BID #60 tablet 10/14/16 [Rx] Doxycycline 100 mg PO BID #10 capsule 10/30/16 [Rx] Isosorbide MONOnitrate (24 HR) [Imdur] 120 mg PO DAILY tab.er.24h 10/30/16 [Rx] Lactobacillus [Culturelle] 1 each PO BID #10 cap.sprink 10/30/16 [Rx] Metoprolol [Lopressor] 12.5 mg PO BID #60 tablet 10/30/16 [Rx] Allergies/Adverse Reactions: Allergies No Known Allergies Allergy (Verified 10/10/16 14:07) Certification: Further, I certify that my clinical findings support that this patient is homebound (i.e. absences from home require considerable and taxing effort and are for medical reasons or jain services or infrequently or short duration when for other reasons) because: Homebound Reason: Leaving home requires considerable and taxing effort due to condition (COPD with oxygen dependency, pneumonia) Attestation: My signature below is to certify that this patient is under my care and that I, or nurse practitioner, or a physician's doctor assistant working with me, has a face-to -face encounter with this patient.
== END 2016-10-30 17:32 | disposition home or self-care (01) ==
LOC: EMEROOPIK 09:14 → INPPIK 09:14
PROVIDERS: ADMIT Internal Medicine; ATTEND Internal Medicine

== ENCOUNTER 2016-11-07 11:54 | Observation (INO) ==
[2016-11-07] MEDS ORDERED: Ipratropium/Albuterol Neb 3 ML IH ONE (12:08)
[2016-11-07] MEDS ORDERED: methylPREDNISolone 125 MG/2 ML VIAL IVP ONE (12:08)
[2016-11-07] MEDS ORDERED: Albuterol 2.5 MG/3 ML NEBULIZER IH ONE (12:08)
--- NOTE | 2016-11-07 12:11 | Emergency Department Note ---
Disposition Clinical Impression: COPD exacerbation Congestive heart failure Qualifiers: Congestive heart failure type: systolic Congestive heart failure chronicity: acute on chronic Qualified Code(s): I50.23 - Acute on chronic systolic ( congestive) heart failure Disposition: Admitted As Inpatient Condition: Fair Referrals: Sara Rabago MD [Primary Care Provider] - Forms: ED Satisfaction Letter SOB HPI - General Chief Complaint: ED Shortness of Breath/Dyspnea Stated Complaint: Hypotensive with JAVIER Time Seen by Provider: 11/07/16 12:05 Source: patient Mode of arrival: EMS Limitations: no limitations Nursing Notes Reviewed: Yes Vital Signs Reviewed: Yes - History of Present Illness 66-year-old white male presents via EMS with a rash on his face and shortness of breath. He was reportedly hypotensive at the scene when he was picked up at home. They stated that their initial blood pressures at the scene were around 100 systolic. The patient states the rash on his face was not present yesterday. He states he believes is why his family called EMS. He admits to being short of breath, but states that he has no more short of breath than usual. He is on 4 L of oxygen at home and has a history of COPD. He denies chest pain. He denies abdominal pain. He denies fever. Pt Subjective Complaint: shortness of breath Onset (ago): year(s) Context: other (Facial rash) Severity: moderate Consistency/Duration: constant Improves with: oxygen, rest, bronchodilators Worsens with: exertion, coughing Known history of: COPD Associated symptoms: Reports: other Treatment prior to arrival: oxygen Cough present: Yes Cough Description: Involuntary Sputum production: No - Related Data Home oxygen amount: 4 liters Home Medications Medication Instructions Recorded Confirmed Levothyroxine [Synthroid] 125 mcg PO 0630 07/13/16 11/07/16 rOPINIRole [Requip] 0.25 mg PO HS 09/16/16 11/07/16 Atorvastatin [Lipitor] 40 mg PO HS 09/20/16 11/07/16 Docusate [Colace] 100 mg PO DAILY PRN 09/20/16 11/07/16 Fluticasone/Vilanterol [Breo 1 each IH DAILY 09/20/16 11/07/16 Ellipta 100-25 Mcg INH] Previous Rx's Medication Instructions Recorded Digoxin [Lanoxin] 0.25 mg PO DAILY #30 tablet 09/19/16 Folic Acid 1 mg PO DAILY #30 tablet 09/19/16 Ascorbic Acid [Vitamin C] 500 mg PO DAILY #30 tablet.er 10/07/16 Citalopram Hydrobromide [Celexa] 20 mg PO DAILY #0 10/07/16 Ferrous Sulfate 325 mg PO DAILY #30 tablet. 10/07/16 Bumetanide [Bumex] 1 mg PO BID #60 tablet 10/14/16 Doxycycline 100 mg PO BID #10 capsule 10/30/16 Isosorbide MONOnitrate (24 HR) 120 mg PO DAILY tab.er.24h 10/30/16 [Imdur] Lactobacillus [Culturelle] 1 each PO BID #10 cap.sprink 10/30/16 Metoprolol [Lopressor] 12.5 mg PO BID #60 tablet 10/30/16 Allergies Allergy/AdvReac Type Severity Reaction Status Date / Time No Known Allergies Allergy Verified 11/07/16 12:48 All systems ED: reviewed and negative except as stated. Constitutional: Denies: fever, chills ENT ED: Denies: ear pain, throat pain Cardiovascular: Denies: chest pain Respiratory: Reports: cough, dyspnea, wheezes Gastrointestinal: Denies: abdominal pain, nausea, vomiting Genitourinary: Denies: urgency, dysuria, frequency Musculoskeletal: Denies: back pain Integumentary: Reports: rash Past Medical History - Past Medical History Medical history: Reports: atrial fibrillation, CHF, COPD, coronary artery disease, CVA, DVT, dementia, hyperlipidemia, hypertension, renal disease, thyroid disease, other Surgical history: Reports: coronary bypass (CABG), IVC Filter Psychiatric history: Reports: anxiety, depression - Social History Smoking Status: Current every day smoker Smokeless Tobacco Status: No Alcohol use: Reports: none Drug use: Reports: none Course - Reevaluation(s) Reevaluation #1: Clinically improved, less short of breath. He states he still very weak and cannot get up. I spoke with his [id number] who is his primary caregiver. She states she has not been out of bed in over 17 hours. She states she is just not managing at home well. We discussed treatment options. I will talk with Dr. Powers about admission and social service evaluation for placement for rehabilitation. They did confirm his DNR CC status while in the hospital. Time: 15:29 Reevaluation #2: Discussed with Dr. Powers. He accepts the patient for admission. Time: 15:35 Vital Signs Temperature 97.6 F 11/07/16 11:56 Pulse Rate 50 11/07/16 11:56 Respiratory Rate 18 11/07/16 11:56 Blood Pressure 109/60 11/07/16 11:56 O2 Sat by Pulse Oximetry 92 11/07/16 11:56 Temperature 97.6 F 11/07/16 14:59 Pulse Rate 56 11/07/16 14:59 Respiratory Rate 20 11/07/16 14:59 Blood Pressure 125/51 11/07/16 14:59 O2 Sat by Pulse Oximetry 98 11/07/16 14:59 Oxygen Delivery Oxygen Delivery Nasal Cannula Shortness of Breath/Dyspnea - [facility] Narrative Medical decision making narrative: Clinically he has a COPD exacerbation with some degree of acute on chronic congestive heart failure. His initial troponin and repeat troponin are unremarkable. - Differential Diagnosis Likely: acute exacerbation of chronic obstructive airways disease, congestive heart failure, pneumonia, asthma with exacerbation, pulmonary embolism, pneumothorax, arrhythmia - Medical Records Medical records reviewed: Yes I reviewed the patient's medical records. Recent hospitalizations for increased dyspnea, the most recent one was a week ago. He has a history of chronic atrial fibrillation. He has a history of COPD and congestive heart pain. - Lab Data Lab results reviewed: Yes I reviewed the patient's lab results. Result diagrams: 11/07/16 12:08 11/07/16 12:45 Lab Results 11/07/16 11/07/16 11/07/16 Range/Units 12:08 12:45 12:45 WBC 8.7 (4.3-11.1) K/mcL RBC 3.57 L (4.19-5.50) M/mcL Hgb 10.3 L (12.9-16.9) g/dL Hct 36.3 L (37.5-50.1) % MCV 101.7 H (83.0-100.0) fL MCH 28.9 (28.0-33.3) pg MCHC 28.4 L (31.6-35.5) g/dL RDW 15.2 H (11.5-14.5) % Plt Count 261 (140-400) K/mcL MPV 10.4 (9.4-12.4) fL Immature Gran % 0.3 (0-4) % Seg Neutrophils % 70.8 % Lymphocytes % 15.9 % Monocytes % 9.7 % Eosinophils % 2.4 % Basophils % 0.9 % Neutrophils # 6.1 (1.6-8.9) K/mcL Lymphocytes # 1.4 (0.6-4.6) K/mcL Monocytes # 0.8 (0.0-1.3) K/mcL Eosinophils # 0.2 (0.0-0.6) K/mcL Basophils # 0.1 (0.0-0.2) K/mcL Macrocytosis Present A (Not Present) VBG Lactic Acid (0.5-2.2) mmol/L Sodium 144 (136-145) mEq/L Potassium 4.3 (3.5-4.5) mEq/L Chloride 99 (98-109) mEq/L Carbon Dioxide 37 H (19-29) mEq/L BUN 13 (8-26) mg/dL Creatinine 0.80 (0.72-1.25) mg/dL Est GFR ( Amer) > 60 (> 60) Est GFR (Non-Af Amer) > 60 (> 60) BUN/Creatinine Ratio 16 (6-26) Glucose 88 (70-99) mg/dL Calculated Osmolality 298 (280-300) Calcium 9.2 (8.6-10.8) mg/dL Troponin I 0.02 (0-0.03) ng/mL B-Natriuretic Peptide (0-100) pg/mL Urine Color (Yellow) Urine Clarity (Clear) Urine pH (5.0-8.0) pH Units Ur Specific [place] (1.010-1.025) Urine Protein (Neg-Trace) mg/dL Urine Glucose (UA) (Normal) mg/dL Urine Ketones (Negative) mg/dL Urine Blood (Negative) Urine Nitrite (Negative) Urine Bilirubin (Negative) Urine Urobilinogen (Normal) mg/dL Ur Leukocyte Esterase (Negative) Urine Microscopic WBC (0-3) per hpf Ur Squamous Epith Cells (None-Few) per lpf Amorphous Sediment (Few) Urine Mucus (Few) Ur Culture Indicated? (NO) 11/07/16 11/07/16 11/07/16 Range/Units 12:45 12:45 13:49 WBC (4.3-11.1) K/mcL RBC (4.19-5.50) M/mcL Hgb (12.9-16.9) g/dL Hct (37.5-50.1) % MCV (83.0-100.0) fL MCH (28.0-33.3) pg MCHC (31.6-35.5) g/dL RDW (11.5-14.5) % Plt Count (140-400) K/mcL MPV (9.4-12.4) fL Immature Gran % (0-4) % Seg Neutrophils % % Lymphocytes % % Monocytes % % Eosinophils % % Basophils % % Neutrophils # (1.6-8.9) K/mcL Lymphocytes # (0.6-4.6) K/mcL Monocytes # (0.0-1.3) K/mcL Eosinophils # (0.0-0.6) K/mcL Basophils # (0.0-0.2) K/mcL Macrocytosis (Not Present) VBG Lactic Acid 1.1 (0.5-2.2) mmol/L Sodium (136-145) mEq/L Potassium (3.5-4.5) mEq/L Chloride (98-109) mEq/L Carbon Dioxide (19-29) mEq/L BUN (8-26) mg/dL Creatinine (0.72-1.25) mg/dL Est GFR ( Amer) (> 60) Est GFR (Non-Af Amer) (> 60) BUN/Creatinine Ratio (6-26) Glucose (70-99) mg/dL Calculated Osmolality (280-300) Calcium (8.6-10.8) mg/dL Troponin I (0-0.03) ng/mL B-Natriuretic Peptide 1086 H (0-100) pg/mL Urine Color Yellow (Yellow) Urine Clarity Clear (Clear) Urine pH 7.5 (5.0-8.0) pH Units Ur Specific [place] 1.020 (1.010-1.025) Urine Protein 30 H (Neg-Trace) mg/dL Urine Glucose (UA) Normal (Normal) mg/dL Urine Ketones Negative (Negative) mg/dL Urine Blood Negative (Negative) Urine Nitrite Negative (Negative) Urine Bilirubin Negative (Negative) Urine Urobilinogen 4.0 H (Normal) mg/dL Ur Leukocyte Esterase Negative (Negative) Urine Microscopic WBC 0-3 (0-3) per hpf Ur Squamous Epith Cells Moderate H (None-Few) per lpf Amorphous Sediment Few (Few) Urine Mucus Many H (Few) Ur Culture Indicated? NO (NO) 11/07/16 Range/Units 14:15 WBC (4.3-11.1) K/mcL RBC (4.19-5.50) M/mcL Hgb (12.9-16.9) g/dL Hct (37.5-50.1) % MCV (83.0-100.0) fL MCH (28.0-33.3) pg MCHC (31.6-35.5) g/dL RDW (11.5-14.5) % Plt Count (140-400) K/mcL MPV (9.4-12.4) fL Immature Gran % (0-4) % Seg Neutrophils % % Lymphocytes % % Monocytes % % Eosinophils % % Basophils % % Neutrophils # (1.6-8.9) K/mcL Lymphocytes # (0.6-4.6) K/mcL Monocytes # (0.0-1.3) K/mcL Eosinophils # (0.0-0.6) K/mcL Basophils # (0.0-0.2) K/mcL Macrocytosis (Not Present) VBG Lactic Acid (0.5-2.2) mmol/L Sodium (136-145) mEq/L Potassium (3.5-4.5) mEq/L Chloride (98-109) mEq/L Carbon Dioxide (19-29) mEq/L BUN (8-26) mg/dL Creatinine (0.72-1.25) mg/dL Est GFR ( Amer) (> 60) Est GFR (Non-Af Amer) (> 60) BUN/Creatinine Ratio (6-26) Glucose (70-99) mg/dL Calculated Osmolality (280-300) Calcium (8.6-10.8) mg/dL Troponin I 0.02 (0-0.03) ng/mL B-Natriuretic Peptide (0-100) pg/mL Urine Color (Yellow) Urine Clarity (Clear) Urine pH (5.0-8.0) pH Units Ur Specific [place] (1.010-1.025) Urine Protein (Neg-Trace) mg/dL Urine Glucose (UA) (Normal) mg/dL Urine Ketones (Negative) mg/dL Urine Blood (Negative) Urine Nitrite (Negative) Urine Bilirubin (Negative) Urine Urobilinogen (Normal) mg/dL Ur Leukocyte Esterase (Negative) Urine Microscopic WBC (0-3) per hpf Ur Squamous Epith Cells (None-Few) per lpf Amorphous Sediment (Few) Urine Mucus (Few) Ur Culture Indicated? (NO) - Radiology Data Radiology results reviewed: Yes I reviewed the patient's radiology results. ITS Impressions Chest X-Ray 11/07/16 12:08 IMPRESSION: 1. Rotated study with cardiomegaly but no failure. D/ / Jimenez Guerrero MD / Jimenez Guerrero MD Interpreting Provider: Jimenez Guerrero MD - EKG Data EKG attestation: Yes I reviewed and interpreted this EKG. EKG results narrative: Atrial fibrillation, rate of 51, nonspecific T-wave flattening. Rhythm strip shows atrial fibrillation with a rate of 51, QRS of 86 ms with no other ectopy as interpreted by me. This is compared to tracing dated 10/28/16, no significant change.
[2016-11-07 12:55] LABS: Basophils # 0.1 K/mcL (0.0-0.2); Basophils % 0.9 %; Eosinophils # 0.2 K/mcL (0.0-0.6); Eosinophils % 2.4 %; Hematocrit 36.3 % (37.5-50.1); Hemoglobin 10.3 g/dL (12.9-16.9); Immature Granulocytes % 0.3 % (0-4); Lymphocytes # 1.4 K/mcL (0.6-4.6); Lymphocytes % 15.9 %; Mean Corpuscular HGB Conc 28.4 g/dL (31.6-35.5); Mean Corpuscular Hemoglobin 28.9 pg (28.0-33.3); Mean Corpuscular Volume 101.7 fL (83.0-100.0); Mean Platelet Volume 10.4 fL (9.4-12.4); Monocytes # 0.8 K/mcL (0.0-1.3); Monocytes % 9.7 %; Neutrophils # 6.1 K/mcL (1.6-8.9); Platelet Count 261 K/mcL (140-400); Red Blood Count 3.57 M/mcL (4.19-5.50); Red Cell Distribution Width 15.2 % (11.5-14.5); Segmented Neutrophils % 70.8 %
[2016-11-07 13:10] LABS: BUN/Creatinine Ratio 16 (6-26); Blood Urea Nitrogen 13 mg/dL (8-26); Calcium 9.2 mg/dL (8.6-10.8); Carbon Dioxide 37 mEq/L (19-29); Chloride 99 mEq/L (98-109); Glucose 88 mg/dL (70-99); Osmolality,Calculated 298 (280-300); Potassium 4.3 mEq/L (3.5-4.5); Sodium 144 mEq/L (136-145); eGFR For African Americans > 60 (> 60); eGFR For Non-African Americans > 60 (> 60)
[2016-11-07 13:22] LABS: Macrocytosis Present (Not Present)
[2016-11-07] MEDS ORDERED: Furosemide 40 MG/4 ML VIAL IVP ONE (13:49)
[2016-11-07 13:56] LABS: Bilirubin,Urine Negative (Negative); Blood,Urine Negative (Negative); Clarity,Urine Clear (Clear); Color,Urine Yellow (Yellow); Glucose,Urine (UA) Normal (Normal); Ketones,Urine Negative (Negative); Leukocyte Esterase,Urine Negative (Negative); Nitrite,Urine Negative (Negative); PH,Urine 7.5 pH Units (5.0-8.0); Protein,Urine 30 mg/dL (Neg-Trace)
[2016-11-07 14:18] LABS: Amorphous Sediment,Urine Few (Few); Mucus,Urine Many (Few); Squamous Epithelial Cell,Urine Moderate per lpf (None-Few); WBC,Urine 0-3 per hpf (0-3)
[2016-11-07] MEDS ORDERED: Naloxone 0.4 MG/ML INJ IVP PRN (16:26)
[2016-11-07] MEDS: Ipratropium/Albuterol Neb 3 ML IH SCH ×2 (17:32→21:19)
--- NOTE | 2016-11-07 19:04 | Electrocardiograph Report ---
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
[2016-11-07] MEDS: Bumetanide 1 MG TABLET PO SCH (20:08)
[2016-11-07] MEDS: Doxycycline 100 MG CAPSULE PO SCH (20:21)
[2016-11-07] MEDS: MethylPREDNISolone 40 MG/ML VIAL IVP SCH (20:21)
[2016-11-07] MEDS: Lactobacillus 1 EACH CAP.SPRINK PO SCH (20:21)
[2016-11-07] MEDS: rOPINIRole 0.25 MG TABLET PO SCH (20:21)
[2016-11-08] MEDS: Ipratropium/Albuterol Neb 3 ML IH SCH ×5 (04:28→16:17)
[2016-11-08] MEDS: MethylPREDNISolone 40 MG/ML VIAL IVP SCH ×3 (05:38→16:27)
[2016-11-08] MEDS: Isosorbide MONOnitrate (24 HR) 60 MG TAB.ER.24H PO SCH (08:43)
[2016-11-08] MEDS: Bumetanide 1 MG TABLET PO SCH ×3 (08:43→17:38)
[2016-11-08] MEDS: Doxycycline 100 MG CAPSULE PO SCH (08:43)
[2016-11-08] MEDS: Ascorbic Acid 500 MG TABLET PO SCH (08:43)
[2016-11-08] MEDS: *HR* Digoxin 0.25 MG TABLET PO SCH (08:43)
[2016-11-08] MEDS: Folic Acid 1 MG TABLET PO SCH (08:43)
[2016-11-08] MEDS: Lactobacillus 1 EACH CAP.SPRINK PO SCH (08:43)
[2016-11-08] MEDS: (Fluticasone/Vilanterol [Breo Ellipta 100-25 Mcg Inh]) IH SCH (16:23)
--- NOTE | 2016-11-08 16:32 | Internal Med History&Physical ---
Date of Encounter: 11/08/16 Time of Encounter: 15:40 Assessment and Plan (1) Dyspnea Current visit: Yes Status: Acute Suspect multifactorial etiology with underlying COPD and heart failure. I do not think there is clear evidence of infection. He was given doxycycline through emergency room but I will not continue this. I will continue Bumex, Lanoxin, and metoprolol. Qualifiers: Dyspnea type: shortness of breath Qualified Code(s): R06.02 - Shortness of breath (2) COPD (chronic obstructive pulmonary disease) Current visit: No Status: Chronic Continue oxygen use with nebulizer treatments. We will discontinue Solu-Medrol started in the emergency room.. Qualifiers: COPD type: unspecified COPD Qualified Code(s): J44.9 - Chronic obstructive pulmonary disease, unspecified (3) Hypothyroidism Current visit: No Status: Chronic Continue Synthroid Qualifiers: Hypothyroidism type: unspecified Qualified Code(s): E03.9 - Hypothyroidism , unspecified (4) Congestive heart failure Current visit: No Status: Chronic Continue Bumex, Lanoxin, isosorbide, and metoprolol. Qualifiers: Congestive heart failure type: unspecified congestive heart failure type Congestive heart failure chronicity: acute Qualified Code(s): I50.9 - Heart failure, unspecified (5) Atrial fibrillation Current visit: No Status: Chronic Continue Lanoxin and metoprolol. Remain off aspirin and OAC because of anemia Qualifiers: Atrial fibrillation type: paroxysmal Qualified Code(s): I48.0 - Paroxysmal atrial fibrillation Internal Medicine - H&P: HPI Chief complaint: Dyspnea Admitted From: Home Plans for Post Hospital Care: Transfer [employer] Care History of present illness: Mr. Abdullahi is a 66 year old male who came to the hospital stating he had developed worsening dyspnea at home over the preceding 24 hours. There was no chest pain associated. There was minimal cough. He had low oxygen saturation on home pulse oximeter. He came to emergency room and was felt to have exacerbation of COPD and CHF was admitted to [facility] floor for ongoing care needs. He was discharged from [facility] 1 week ago with similar complaints. He has been hospitalized previously at [facility] also. Respiratory history is significant for having smoked since age 10 up to 2-1/2 packs per day. He states he quit smoking approximately 6 weeks ago. He wears oxygen at home 09/01 at 4 L/m. He has a diagnosis of COPD. He has a diagnosis of ZIGGY but does not wear BiPAP at home. Past Med Surg Social Fam HX - Past Medical History Medical history: atrial fibrillation, CHF, COPD, coronary artery disease, CVA, DVT, dementia, hyperlipidemia, hypertension, renal disease, thyroid disease, other Psychiatric history: anxiety, depression - Past Surgical History Surgical History: coronary bypass (CABG), IVC Filter - Social History Smoking Status: Current every day smoker Smokeless Tobacco Status: No Alcohol use: none Drug use: none - Family History Mother Living Status: Hx Family Cardiac Disorders: Yes (CO) Sister Living Status: Hx Family Cardiac Disorders: Yes (CO) Father Living Status: Internal Medicine - H&P: Meds Levothyroxine [Synthroid] 125 mcg PO 0630 07/13/16 [History] rOPINIRole [Requip] 0.25 mg PO HS 09/16/16 [History] Digoxin [Lanoxin] 0.25 mg PO DAILY #30 tablet 09/19/16 [Rx] Folic Acid 1 mg PO DAILY #30 tablet 09/19/16 [Rx] Atorvastatin [Lipitor] 40 mg PO HS 09/20/16 [History] Docusate [Colace] 100 mg PO DAILY PRN 09/20/16 [History] Fluticasone/Vilanterol [Breo Ellipta 100-25 Mcg INH] 1 each IH DAILY 09/20/16 [ History] Ascorbic Acid [Vitamin C] 500 mg PO DAILY #30 tablet.er 10/07/16 [Rx] Citalopram Hydrobromide [Celexa] 20 mg PO DAILY #0 10/07/16 [Rx] Ferrous Sulfate 325 mg PO DAILY #30 tablet. 10/07/16 [Rx] Bumetanide [Bumex] 1 mg PO BID #60 tablet 10/14/16 [Rx] Doxycycline 100 mg PO BID #10 capsule 10/30/16 [Rx] Isosorbide MONOnitrate (24 HR) [Imdur] 120 mg PO DAILY tab.er.24h 10/30/16 [Rx] Lactobacillus [Culturelle] 1 each PO BID #10 cap.sprink 10/30/16 [Rx] Metoprolol [Lopressor] 12.5 mg PO BID #60 tablet 10/30/16 [Rx] Allergies No Known Allergies Allergy (Verified 11/07/16 12:48) All Systems PM: A 10-system review of systems was performed and is negative for pertinent findings except as documented above in the HPI. Review of systems: Review of systems from his recent [facility] stay were reviewed and revised as below. General: His weight has decreased from 127.006 kg on 09/16/2016 to 121.79 kg today Cardiovascular: He has hypertension and known ASHD with possible remote CO. He states he had 4 vessel CABG approximately 2004. He had DVT with IVC filter placed several years ago. He has diagnoses of heart failure but does not know details. An echocardiogram was done at [facility] 09/21/2016 which showed poor quality imaging. The LVEF appeared to be mildly to moderately reduced. There was LAE at 4.6 cm. The interventricular septum and posterior wall thickness measurements were elevated at 1.30 cm. He has paroxysmal atrial fibrillation. He had anemia during an earlier hospitalization so aspirin and Xarelto were held and these have not been restarted. Respiratory: As per history of present illness GI: He denies disorders of his liver gallbladder or exocrine pancreas. He denies melena hematochezia or abdominal pain. 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 He uses a cane or walker to ambulate at home. He denies seizures. Endocrine: He has hyperlipidemia and hypothyroidism but denies diabetes. TSH was elevated at 10.746 on 10/18/2016. Hematology/oncology: He was found to have anemia with anemia testing 10/18/2016 showing iron 16, transferrin saturation 4%, transferrin 319, ferritin 88, folate 14.6, and B12 181. There are no known internal malignancies. Aspirin and Xarelto have not been restarted as per above Psychiatric: He has anxiety but denies depression or other mental health issues Musk skeletal: He has DJD but no known gout or other bone joint or muscle disorders. - Constitutional Vitals: Temp Pulse Resp BP Pulse Ox 98.0 F 73 16 100/54 91 11/08/16 14:00 11/08/16 14:00 11/08/16 16:18 11/08/16 14:00 11/08/16 16:18 Exam: General: He is a well-developed overweight male who appears in minimal distress at present time. HEENT: Head is atraumatic normocephalic. Eyes: EOMI. There is no scleral icterus. Mouth: Mucosa is moist. Neck: Supple and nontender. There is no thyromegaly or adenopathy noted. Heart: Regular without murmurs gallops or ectopics. Lungs: No wheezes or crackles are heard. He has diminished breath sounds diffusely. Abdomen: He has a large abdomen. It is nontender to palpation. Extremities: There is no cyanosis edema or clubbing noted. Dorsalis pedis and posttibial pulses are 1-2 over 2 bilaterally. Neurologic: Mental status: He is talkative and seems to be a reliable historian. Cranial nerves: Smile is symmetric. Forehead wrinkles bilaterally. Tongue protrudes midline. EOMI. Motor: There is no pronator drift. Cerebellar: Finger to nose is intact bilaterally. Skin: Warm and dry. He has seborrheic dermatitis of his face. Internal Med - H&P Results - Labs CBC & Chem 7: 11/07/16 12:08 11/07/16 12:45 Labs: Cardiac Enzymes 11/07/16 11/08/16 11/08/16 Range/Units 20:19 02:28 08:45 Troponin I 0.02 0.01 0.02 (0-0.03) ng/mL
[2016-11-08] MEDS: rOPINIRole 0.25 MG TABLET PO SCH (20:17)
[2016-11-08] MEDS ORDERED: Clotrimazole/Betameth Dip CRM 45 APPL/45 GM TUBE TP SCH (21:00)
[2016-11-09] MEDS: *HR* Digoxin 0.25 MG TABLET PO SCH (08:09)
[2016-11-09] MEDS: Bumetanide 1 MG TABLET PO SCH (08:09)
[2016-11-09] MEDS: Isosorbide MONOnitrate (24 HR) 60 MG TAB.ER.24H PO SCH (08:09)
[2016-11-09] MEDS: Folic Acid 1 MG TABLET PO SCH (08:09)
[2016-11-09] MEDS: Ascorbic Acid 500 MG TABLET PO SCH (08:09)
[2016-11-09] MEDS: (Fluticasone/Vilanterol [Breo Ellipta 100-25 Mcg Inh]) IH SCH (09:39)
--- NOTE | 2016-11-09 10:33 | Discharge Summary ---
Date of Encounter: 11/09/16 Time of Encounter: 10:20 - Discharge Diagnosis (1) COPD (chronic obstructive pulmonary disease) Priority: Primary Status: Chronic Qualifiers: COPD type: unspecified COPD Qualified Code(s): J44.9 - Chronic obstructive pulmonary disease, unspecified (2) Congestive heart failure Priority: Secondary Status: Chronic Qualifiers: Congestive heart failure type: unspecified congestive heart failure type Congestive heart failure chronicity: acute Qualified Code(s): I50.9 - Heart failure, unspecified (3) Hypothyroidism Priority: Secondary Status: Chronic Qualifiers: Hypothyroidism type: unspecified Qualified Code(s): E03.9 - Hypothyroidism , unspecified (4) Atrial fibrillation Priority: Secondary Status: Chronic Qualifiers: Atrial fibrillation type: paroxysmal Qualified Code(s): I48.0 - Paroxysmal atrial fibrillation - Discharge Medications Home Medications: Levothyroxine [Synthroid] 125 mcg PO 0630 07/13/16 [History] rOPINIRole [Requip] 0.25 mg PO HS 09/16/16 [History] Digoxin [Lanoxin] 0.25 mg PO DAILY #30 tablet 09/19/16 [Rx] Folic Acid 1 mg PO DAILY #30 tablet 09/19/16 [Rx] Atorvastatin [Lipitor] 40 mg PO HS 09/20/16 [History] Docusate [Colace] 100 mg PO DAILY PRN 09/20/16 [History] Fluticasone/Vilanterol [Breo Ellipta 100-25 Mcg INH] 1 each IH DAILY 09/20/16 [ History] Ascorbic Acid [Vitamin C] 500 mg PO DAILY #30 tablet.er 10/07/16 [Rx] Citalopram Hydrobromide [Celexa] 20 mg PO DAILY #0 10/07/16 [Rx] Ferrous Sulfate 325 mg PO DAILY #30 tablet.dr 10/07/16 [Rx] Isosorbide MONOnitrate (24 HR) [Imdur] 120 mg PO DAILY tab.er.24h 10/30/16 [Rx] Metoprolol [Lopressor] 12.5 mg PO BID #60 tablet 10/30/16 [Rx] Bumetanide [Bumex] 1.5 mg PO BID #60 tablet 11/09/16 [Rx] Allergies/Adverse Reactions: Allergies No Known Allergies Allergy (Verified 11/07/16 12:48) Date of admission: 11/07/16 16:02 Primary care physician: Sara Rabago Consults: 11/08/16 10:52 Consult to Occupational Therapy [CONS] Routine Comment: Evaluate, develop and implement POC Reason for Consult: Weakness and dyspnea Consult to Physical Therapy [CONS] Routine Comment: Evaluate, develop and implement POC Reason for Consult: Weakness and dyspnea - Patient Status Disposition: Transfer SNF Condition: Fair Functional capacity at discharge: uses cane/walker Overall status at discharge: patient is progressing back to baseline - Discharge Instructions - Diet and Activity Activity: as per physical therapy Diet: low salt diet Hospital course: Mr. Abdullahi is a 66 year old male who came to the hospital stating he had developed worsening dyspnea at home over the preceding 24 hours. There was no chest pain associated. There was minimal cough. He had low oxygen saturation on home pulse oximeter. He came to emergency room and was felt to have exacerbation of COPD and CHF was admitted to [facility] for ongoing care needs. Initial orders were written by the emergency room physician. I saw him on November 08 and performed the history and physical. Bumex dose was increased to 1.5 mg twice a day. His dyspnea resolved and his breathing was at baseline when I saw him on November 09. Arrangements were complete on November 09 for him to be discharged to [facility] for rehabilitation therapy and possible long-term stay. He will follow with me there. - Time Spent with Patient Total time spent providing and/or coordinating discharge services: - Constitutional Vitals: Temp Pulse Resp BP Pulse Ox 98.0 F 57 16 121/71 94 11/09/16 06:36 11/09/16 06:36 11/09/16 06:36 11/09/16 06:36 11/09/16 09:23
--- NOTE | 2016-11-09 10:38 | Physician Discharge Referral ---
ExtendedCare Referral Info Transfer To: [facility] Provider in Charge: Gio Provider in Charge after Transfer: PCP Jessica) Institutional Level of Care: Skilled - Diagnosis (1) COPD (chronic obstructive pulmonary disease) Priority: Primary Status: Chronic (2) Congestive heart failure Priority: Secondary Status: Chronic (3) Hypothyroidism Priority: Secondary Status: Chronic (4) Atrial fibrillation Priority: Secondary Status: Chronic Prognosis: Fair Aware of Diagnosis: Patient, Family Aware of Prognosis: Patient, Family - Transfer Medications Home Medications: Levothyroxine [Synthroid] 125 mcg PO 0630 07/13/16 [History] rOPINIRole [Requip] 0.25 mg PO HS 09/16/16 [History] Digoxin [Lanoxin] 0.25 mg PO DAILY #30 tablet 09/19/16 [Rx] Folic Acid 1 mg PO DAILY #30 tablet 09/19/16 [Rx] Atorvastatin [Lipitor] 40 mg PO HS 09/20/16 [History] Docusate [Colace] 100 mg PO DAILY PRN 09/20/16 [History] Fluticasone/Vilanterol [Breo Ellipta 100-25 Mcg INH] 1 each IH DAILY 09/20/16 [ History] Ascorbic Acid [Vitamin C] 500 mg PO DAILY #30 tablet.er 10/07/16 [Rx] Citalopram Hydrobromide [Celexa] 20 mg PO DAILY #0 10/07/16 [Rx] Ferrous Sulfate 325 mg PO DAILY #30 tablet.dr 10/07/16 [Rx] Isosorbide MONOnitrate (24 HR) [Imdur] 120 mg PO DAILY tab.er.24h 10/30/16 [Rx] Metoprolol [Lopressor] 12.5 mg PO BID #60 tablet 10/30/16 [Rx] Bumetanide [Bumex] 1.5 mg PO BID #60 tablet 11/09/16 [Rx] Allergies/Adverse Reactions: Allergies No Known Allergies Allergy (Verified 11/07/16 12:48) - Respiratory Orders Oxygen / L per min (Oxygen at 2-4 L/m 09/01 to keep saturation greater than 90%) Smoking Cessation: Smoking cessation has been advised. For more information, call the [employer] Tobacco Quit Line at 9-798-OWGP-NOW. - Mobility Orders Ambulate - Rehabiliation Orders Rehab Potential: Fair Rehab Orders: Evaluation for Physical Therapy, Evaluation for Occupational Therapy - Diet Orders No Added Salt (MIKEL) CERTIFICATION: I certify that the transfer of the above named patient to an Extended Care Facility is necessary for the continuing treatment of the diagnosis listed. The above information is true and accurate reflection of patient's current condition. Confidential - Redisclosure prohibited without a patient's written consent.
[2016-11-09 10:39] VITALS: BP 118/54
== END 2016-11-09 11:31 ==
LOC: EMEROOPIK 11:54 → INPPIK 11:54
PROVIDERS: ADMIT Internal Medicine; ATTEND Internal Medicine